=== PATIENT | female | born 1990 | race Caucasian/White ===

== ENCOUNTER → 2017-08-16 14:04 | Outpatient (CLI) | payer BC, OTHER, MEDICAID, SELFPAY ==
--- NOTE | 2017-08-16 | DI.ECHO.S_ITS ---
[facility] +---------+ : : [address] : : : : [place], [place] : : : : [id number] : : : : Phone: [phone]---------+ Echocardiogram Report + + :Name: VEDA GORDON Study Date: 08/16/2017 Height: 62 in : :[facility] Exam Location: [facility] [place] Weight: 145 lb : : Gender: Female BSA: 1.7 m2 : :: 1990 Age: 27 yrs BP: 120/80 mmHg: :Reason For Study: Arrhythmia, PVCs : :Ordering Physician: Jennifer : :Apollo Performed By: Marielle Page : + + Interpretation Summary 1) Normal left ventricular thickness, size, wall motion, and systolic function (EF 60-65%). 2) Normal right ventricular size and function. 3) The aortic valve is not well visualized; thus, bicuspid aortic valve can not be excluded. 4) No prior Echo available for comparison. Procedure: A two-dimensional transthoracic echocardiogram with color flow and Doppler was performed. The study quality was technically adequate. There is no prior echocardiogram noted for this patient. The heart rate ranged between 58-80 bpm during the study. The patient had frequent PVCs during the exam. Left Ventricle: The left ventricle is normal in size, wall thickness, and systolic function without any focal wall motion abnormalities. The ejection fraction is estimated to be 60-65%. Right Ventricle: The right ventricle is normal in size and function. Atria: The left atrial size is normal. Right atrial size is normal. There is no Doppler evidence for an interatrial shunt. Mitral Valve: The mitral valve is normal in structure and function. There is no mitral regurgitation noted. Aortic Valve: The aortic valve is not well visualized. The aortic valve opens well. There is no aortic valve stenosis. No aortic regurgitation is present. Tricuspid Valve: The tricuspid valve is normal in structure and function. There is a trace or physiologic amount of tricuspid regurgitation. Pulmonary artery pressures cannot be estimated because of the lack of a measurable TR jet velocity. Pulmonic Valve: The pulmonic valve is not well visualized. Great Vessels: The aortic root is normal size. The ascending aorta is normal in size. The aortic arch could not be visualized. The pulmonary artery is not well visualized, but is probably normal size. The IVC is of normal diameter and collapses greater than 50% with a sniff. This suggests a low right atrial pressure of 3 mm Hg. Pericardium/ Pleura There is no pericardial effusion. There is no pleural effusion. MMode/2D Measurements & Calculations LVIDd: 4.8 cm LVOT diam: 2.5 cm LVIDs: 4.0 cm Ao root diam: 3.4 cm FS: 16.7 % asc Aorta Diam: 2.9 cm EPSS: 1.4 cm IVSd: 0.68 cm LVPWd: 0.56 cm LV mcbride. diameter/BSA (cm/m^2): 2.9 LV sys. diameter/BSA (cm/m^2): 2.4 LA dimension: 2.2 cm RA long axis: 5.5 cm LA A2 area: 14.3 cm2 RA area: 18.7 cm2 LA A4 area: 16.8 cm2 RA vol: 54.5 ml LA length (vol): 5.3 cm RA : 32.7 ml/m2 LA vol: 38.1 ml IVC diam: 2.0 cm LA vol index: 22.8 ml/m2 RVD1 (basal): 4.0 cm Doppler Measurements & Calculations Ao V2 max: 93.9 cm/sec LVOT Max Keith: 52.3 cm/sec Ao V2 mean: 66.8 cm/sec LV V1 max P.1 mmHg Ao max P.5 mmHg LV V1 VTI: 11.6 cm Ao mean P.0 mmHg YUSUF(I,D): 2.9 cm2 Ao V2 VTI: 19.8 cm YUSUF(V,D): 2.7 cm2 sev ratio: 0.58 YUSUF indexed to BSA (cm^2/m^2): 1.7 MV E max keith: 83.0 cm/sec PA V2 max: 52.2 cm/sec MV A max keith: 38.1 cm/sec PA V2 mean: 37.5 cm/sec MV E/A: 2.2 PA mean P.61 mmHg Med Peak E' Keith: 8.6 cm/sec PA Accel Time: 0.09 sec E/E' med: 9.7 Lat Peak E' Keith: 12.6 cm/sec E/E' lat: 6.6 E/e' average: 8.1 MV P1/2t: 70.2 msec MV P1/2t max keith: 81.9 cm/sec MVA(P1/2t): 3.1 cm2 Reading Physician:05:36 PM
== END ==
PROVIDERS: Family Provider Family Medicine; PCP Family Medicine; Visit Provider Family Medicine
DX: I49.3 Ventricular premature depolarization (principal)
CPT/HCPCS: 93306

== ENCOUNTER 2021-08-20 10:03 | Emergency (ER) | payer BC, OTHER, MEDICAID, SELFPAY ==
[2021-08-20] VITALS (56 sets, daily range): BP systolic 80–121; BP diastolic 44–70; PULSE 55–96; RESP 14–32; TEMP 36.5–38.8; O2SAT 75–100; BMI 29.7
--- NOTE | 2021-08-20 10:59 | ED_ITS ---
HPI - URI/Sore Throat <Aretha Childs DO - Last Filed: 08/21/21 19:30> General Chief Complaint: Upper Respiratory Symptoms Stated Complaint: dehydrated Time Seen by Provider: 08/20/21 10:58 Source: patient and family (mother) Limitations: no limitations History of Present Illness HPI Narrative: This is a 31-year-old female history of muscular dystrophy not on any daily medications. Mom states she has had some low-grade temperatures, she has had a cough which has been productive but patient will not spit it out. She has not had any chest pain. She has not had any shortness of breath or difficulty with breathing. She has not been drinking as much for the past 2 days and only had 1 cup of apple juice yesterday typically she will have 2-3. She has not been complaining of any nausea or vomiting and denies any today. No dysuria, urgency or frequency. She has been urinating and has not been particularly dark or discolored. No diarrhea constipation. She has been stooling. She did have a fall unwitnessed but described as mechanical and has some lower back discomfort. Patient has not had any prior surgeries. No known drug allergies. No tobacco, alcohol or illicit. She lives with her family including her mother who is at bedside and augments history today. Related Data Allergies Allergy/AdvReac Type Severity Reaction Status Date / Time No Known Drug Allergies Allergy Verified 08/20/21 18:56 Review of Systems <Aretha Childs DO - Last Filed: 08/21/21 19:30> Review of Systems ROS Unobtainable: All systems reviewed & are unremarkable except as noted in HPI and below Exam <Aretha Childs DO - Last Filed: 08/21/21 19:30> Narrative Exam Narrative: GEN: well nourished, female, alert and oriented and at baseline, patient appears to be in no acute distress distress. Patient intermittently dips to 88% on RA and then to 92% on RA. HEENT: Atraumatic, pupils are equal round reactive to light, extraocular movements are intact, nares are clear, TMs are clear with no fluid, there is no conjunctival pallor. Throat is clear without any exudates, erythema, tonsillar enlargement or uvular deviation HEART: Regular rate and rhythm without murmur, clicks, rubs. Pulses are equal in upper and lower extremities LUNGS:Lungs clear to auscultation, no wheezes, rales, crackles, chest moves symmetrically, no tachypnea accessory muscle use ABD:bowel sounds normal, soft, non-tender, no guarding, rebound, rigidity, no masses noted, no hepatosplenomegaly :No CVA tenderness BACK: No cervical, thoracic or lumbar vertebral point tenderness. Patient has normal range of motion. Patient is able to roll around on the bed back to front without issue. Normal range of motion of upper and lower extremities. Sens ation intact upper and lower extremities. MSCL: Non-tender, no muscle atrophy NEURO:CN 2-12 intact, sensation normal Initial Vital Signs Initial Vital Signs: Vital Signs Temperature 99.7 F H 08/20/21 10:14 Pulse Rate 96 H 08/20/21 10:14 Respiratory Rate 16 08/20/21 10:14 Blood Pressure 121/68 08/20/21 10:14 Pulse Oximetry 88 L 08/20/21 10:14 Oxygen Delivery Method 08/20/21 10:14 <Corinne Rosa MD - Last Filed: 08/21/21 02:21> Initial Vital Signs Initial Vital Signs: Vital Signs Temperature 99.7 F H 08/20/21 10:14 Pulse Rate 96 H 08/20/21 10:14 Respiratory Rate 16 08/20/21 10:14 Blood Pressure 121/68 08/20/21 10:14 Pulse Oximetry 88 L 08/20/21 10:14 Oxygen Delivery Method 08/20/21 10:14 <Corinne Rosa MD - Last Filed: 08/21/21 02:21> Central Line Placement Right IJ: Time of procedure: 21:35 Time Out Performed: Yes Patient Placed on Monitor/Pulse Ox: Yes Prep: mask, gown and gloves Central Line Prep: Chlorhexidine scrub Ultrasound Used for Placement: Yes Central Line Lumen Inserted: triple Post Procedure: sutured in place, good blood return, all ports aspirated, flushed, capped and sterile dressing applied Post Procedure X-Ray: tip of catheter in good position and no pneumothorax seen Patient Tolerated Procedure: Well Intubation Time of Intubation: 21:35 Time out performed: Yes sedative: other (propofol) Mg Given: 100 paralytic: Succinylcholine Mg Given: 40 Assist Device Used: fiber optic device ET Tube Size: 7.5 ET Tube Uncuffed: No Tube Secured Depth (cm): 21 Tube Secured Location: teeth Tube Placement Confirmation: Visualized tube passing through cords, Equal breath sounds bilaterally, Confirmation by capnometry and Chest Xray Intubation Complications: none Additional Comments: copious secretions suctioned from ET tube Course <Aretha Childs, DO - Last Filed: 08/21/21 19:30> Orders Ordered: Discontinued Medications Acetaminophen (Acetaminophen Susp 650 Mg/20.3 Ml Udc) 650 mg PO NOW ONE Stop: 08/20/21 16:34 Last Admin: 08/20/21 16:44 Dose: 650 mg Documented By: BS Dexamethasone (Dexamethasone 10 Mg/Ml Vial) 10 mg IV NOW ONE Stop: 08/20/21 17:54 Last Admin: 08/20/21 18:59 Dose: Not Given Documented By: ANTHONY Dexamethasone (Dexamethasone 10 Mg/Ml Vial) 6 mg IV NOW ONE Stop: 08/20/21 18:13 Last Admin: 08/20/21 18:14 Dose: 6 mg Documented By: ANTHONY Fentanyl (Fentanyl 100 Mcg/2 Ml Inj) 100 mcg IV Q1H PRN PRN Reason: sedation with intubation PRN Last Admin: 08/20/21 23:16 Dose: 50 mcg Documented By: Admin: 08/20/21 21:35 Dose: 100 mcg Documented By: Admin: 08/20/21 21:25 Dose: 100 mcg Documented By: ANTHONY Fentanyl (Fentanyl 100 Mcg/2 Ml Inj) 100 mcg IV NOW ONE Stop: 08/20/21 22:28 Last Admin: 08/20/21 22:31 Dose: 100 mcg Documented By: ANTHONY Fentanyl (Fentanyl 100 Mcg/2 Ml Inj) 50 mcg IV NOW ONE Stop: 08/20/21 23:16 Last Admin: 08/20/21 23:17 Dose: Not Given Documented By: BS Remdesivir 200 mg/ Sodium (Chloride) 250 mls @ 250 mls/hr IV NOW ONE Stop: 08/20/21 18:52 Last Admin: 08/20/21 20:29 Dose: Not Given Documented By: ANTHONY Propofol (Propofol) 1,000 mg in 100 mls @ 2.286 mls/hr IV TITRATE PRISCILLA Last Infusion: 08/20/21 23:45 Dose: 0 mcg/kg/min, 0 mls/hr Documented By: Infusion: 08/20/21 23:45 Dose: 30 mcg/kg/min, 13.717 mls/hr Documented By: Admin: 08/20/21 23:22 Dose: 25 mcg/kg/min, 11.431 mls/hr Documented By: Infusion: 08/20/21 23:22 Dose: 30 mcg/kg/min, 13.717 mls/hr Documented By: Infusion: 08/20/21 22:30 Dose: 25 mcg/kg/min, 11.431 mls/hr Documented By: Infusion: 08/20/21 22:15 Dose: 20 mcg/kg/min, 9.144 mls/hr Documented By: Admin: 08/20/21 21:19 Dose: 5 mcg/kg/min, 2.286 mls/hr Documented By: ANTHONY NOREPINEPHRINE BITARTRATE/D5W (Levophed) 4 mg in 250 mls @ 7.5 mls/hr IV TITRATE PRISCILLA; Protocol Last Titration: 08/20/21 23:45 Dose: 4 mcg/min, 15 mls/hr Documented By: Titration: 08/20/21 22:01 Dose: 4 mcg/min, 15 mls/hr Documented By: Admin: 08/20/21 21:45 Dose: 2 mcg/min, 7.5 mls/hr Documented By: ANTHONY Fentanyl 1,000 mcg/ Dextrose 250 mls @ 13.336 mls/hr IV TITRATE PRISCILLA; Protocol Last Admin: 08/21/21 00:15 Dose: Not Given Documented By: BS Sodium Chloride (Normal Saline 0.9%) 1,000 mls @ 1,000 mls/hr IV BOLUS ONE Stop: 08/20/21 22:09 Last Infusion: 08/20/21 22:30 Dose: 0 mls/hr Documented By: Admin: 08/20/21 21:20 Dose: 1,000 mls/hr Documented By: ANTHONY Propofol (Propofol 200 Mg/20 Ml Vial) 75 mg 1 mg/kg (75 mg) IV NOW ONE Stop: 08/20/21 20:34 Last Admin: 08/20/21 22:20 Dose: Not Given Documented By: ANTHONY Propofol (Propofol 200 Mg/20 Ml Vial) 100 mg IV NOW ONE Stop: 08/20/21 21:12 Last Admin: 08/20/21 21:11 Dose: 100 mg Documented By: BS Propofol (Propofol 200 Mg/20 Ml Vial) 100 mg IV NOW ONE Stop: 08/20/21 21:20 Last Admin: 08/20/21 21:19 Dose: 100 mg Documented By: BS Succinylcholine Chloride (Succinylcholine 200 Mg/10 Ml Vial) 40 mg IV NOW ONE Stop: 08/20/21 21:13 Last Admin: 08/20/21 21:12 Dose: 40 mg Documented By: BS Reevaluation(s) Reevaluation #1: Patient's O2 sat is noted to be sometimes as low as 83 does to have a appropriate + consistently and she response to nasal cannula oxygen. Mom states she has never been she has low to the past. Multiple attempts at IV placement without success as well as lab drop. After discussion would like to keep patient for admission, ultrasound-guided IV, dexamethasone and remdesivir. Reevaluation #2: Recheck patient keeps dropping intermittently and has increasing O2 requirements. Patient bumped from 4L n/c and then to high flow after ABG with pao2 of 40. Patient does use cpap at home at night. Reevaluation #3: Patient shrugs shoulders when asked about intubation status earlier and now. Mother states she has to confer with but after discussion gives permission if patient rapidly decompensating. Discussed patient need for t ransfer for multiple subspecialty care with her medical issues. Consultations Consultation #1: Dr. Quintanilla accepts for waiting for labs. He was re-contacted is patient's O2 requirements are increasing and we both agree that patient would benefit from transfer but he is happy to consult with emergency department until transfer can be arranged Consultation #2: Dr. Donn Walton at [facility] [place] is happy to accept patient. Would agree with plan for serial ABGs and possibly switch to BiPAP sooner as patient may have some CO2 retention with plan to monitor closely and intubation if continuing to retain CO2, ect. Vital Signs Vital signs: Vital Signs - 8 hr 08/20/21 19:23 08/20/21 19:23 08/20/21 20:05 Temperature Pulse Rate Respiratory Rate 24 24 Blood Pressure 96/55 L Pulse Oximetry 88 L 88 L Oxygen Delivery Method Fraction of Inspired Oxygen 90 08/20/21 18:30 08/20/21 18:30 08/20/21 18:53 Temperature Pulse Rate 90 Respiratory Rate Blood Pressure 100/59 L 101/66 Pulse Oximetry 89 L Oxygen Delivery Method Fraction of Inspired Oxygen 08/20/21 18:53 08/20/21 19:00 08/20/21 19:00 Temperature Pulse Rate 89 86 Respiratory Rate Blood Pressure 111/54 L Pulse Oximetry 89 L 90 L Oxygen Delivery Method Fraction of Inspired Oxygen 08/20/21 19:30 08/20/21 19:30 08/20/21 19:55 Temperature Pulse Rate 90 91 H Respiratory Rate Blood Pressure 99/55 L Pulse Oximetry 93 93 Oxygen Delivery Method Fraction of Inspired Oxygen 08/20/21 19:55 08/20/21 20:00 08/20/21 20:00 Temperature Pulse Rate 91 H Respiratory Rate Blood Pressure 96/55 L 94/56 L Pulse Oximetry 93 Oxygen Delivery Method BiPAP Fraction of Inspired Oxygen 08/20/21 21:48 08/20/21 21:49 08/20/21 21:49 Temperature Pulse Rate 59 L 59 L Respiratory Rate Blood Pressure 83/46 L Pulse Oximetry 97 97 Oxygen Delivery Method Fraction of Inspired Oxygen 08/20/21 21:50 08/20/21 21:50 08/20/21 21:52 Temperature Pulse Rate 57 L Respiratory Rate Blood Pressure 84/47 L 86/50 L Pulse Oximetry 97 Oxygen Delivery Method Fraction of Inspired Oxygen 08/20/21 21:52 08/20/21 21:54 08/20/21 21:54 Temperature Pulse Rate 57 L 57 L Respiratory Rate Blood Pressure 90/53 L Pulse Oximetry 98 98 Oxygen Delivery Method Fraction of Inspired Oxygen 08/20/21 21:56 08/20/21 21:56 08/20/21 21:58 Temperature 97.7 F Pulse Rate 57 L Respiratory Rate Blood Pressure 89/50 L 89/52 L Pulse Oximetry 99 Oxygen Delivery Method Fraction of Inspired Oxygen 08/20/21 21:58 08/20/21 22:00 08/20/21 22:00 Temperature 98.8 F 99.0 F Pulse Rate 58 L 57 L Respiratory Rate Blood Pressure 89/52 L Pulse Oximetry 99 99 Oxygen Delivery Method Fraction of Inspired Oxygen 08/20/21 22:02 08/20/21 22:02 08/20/21 22:04 Temperature 99.1 F Pulse Rate 57 L Respiratory Rate Blood Pressure 93/54 L 95/58 L Pulse Oximetry 99 Oxygen Delivery Method Fraction of Inspired Oxygen 08/20/21 22:04 08/20/21 22:06 08/20/21 22:06 Temperature 99.3 F 99.3 F Pulse Rate 55 L 55 L Respiratory Rate Blood Pressure 96/59 L Pulse Oximetry 99 99 Oxygen Delivery Method Fraction of Inspired Oxygen 08/20/21 22:08 08/20/21 22:08 08/20/21 22:14 Temperature 99.5 F Pulse Rate 56 L Respiratory Rate Blood Pressure 95/61 94/62 Pulse Oximetry 100 Oxygen Delivery Method Fraction of Inspired Oxygen 08/20/21 22:14 08/20/21 22:16 08/20/21 22:16 Temperature 99.3 F 99.9 F H Pulse Rate 60 57 L Respiratory Rate Blood Pressure 104/60 Pulse Oximetry 100 100 Oxygen Delivery Method Fraction of Inspired Oxygen 08/20/21 22:18 08/20/21 22:18 08/20/21 22:20 Temperature 99.9 F H Pulse Rate 56 L Respiratory Rate Blood Pressure 109/59 L 100/60 Pulse Oximetry 100 Oxygen Delivery Method Fraction of Inspired Oxygen 08/20/21 22:20 08/20/21 22:22 08/20/21 22:22 Temperature 99.9 F H 99.9 F H Pulse Rate 56 L 57 L Respiratory Rate Blood Pressure 101/62 Pulse Oximetry 100 100 Oxygen Delivery Method Fraction of Inspired Oxygen 08/20/21 22:24 08/20/21 22:24 08/20/21 22:26 Temperature 99.9 F H Pulse Rate 55 L Respiratory Rate 14 Blood Pressure 102/57 L 103/55 L Pulse Oximetry 100 Oxygen Delivery Method Fraction of Inspired Oxygen 08/20/21 22:26 08/20/21 22:28 08/20/21 22:28 Temperature 99.9 F H 99.9 F H Pulse Rate 61 66 Respiratory Rate 16 16 Blood Pressure 97/54 L Pulse Oximetry 100 99 Oxygen Delivery Method Fraction of Inspired Oxygen 08/20/21 22:30 08/20/21 22:30 08/20/21 22:32 Temperature 99.9 F H 99.9 F H Pulse Rate 61 58 L Respiratory Rate 14 20 Blood Pressure 95/54 L Pulse Oximetry 100 100 Oxygen Delivery Method Fraction of Inspired Oxygen 08/20/21 22:32 08/20/21 22:34 08/20/21 22:34 Temperature 99.9 F H Pulse Rate 60 Respiratory Rate 14 Blood Pressure 94/50 L 96/51 L Pulse Oximetry 99 Oxygen Delivery Method Fraction of Inspired Oxygen 08/20/21 22:36 08/20/21 22:36 08/20/21 22:38 Temperature 99.9 F H Pulse Rate 58 L Respiratory Rate 15 Blood Pressure 99/58 L 100/56 L Pulse Oximetry 100 Oxygen Delivery Method Fraction of Inspired Oxygen 08/20/21 22:38 08/20/21 23:00 Temperature 99.9 F H 99.9 F H Pulse Rate 59 L 67 Respiratory Rate 14 Blood Pressure Pulse Oximetry 100 100 Oxygen Delivery Method Fraction of Inspired Oxygen <Corinne Rosa MD - Last Filed: 08/21/21 02:21> Orders Ordered: Discontinued Medications Acetaminophen (Acetaminophen Susp 650 Mg/20.3 Ml Udc) 650 mg PO NOW ONE Stop: 08/20/21 16:34 Last Admin: 08/20/21 16:44 Dose: 650 mg Documented By: ANTHONY Dexamethasone (Dexamethasone 10 Mg/Ml Vial) 10 mg IV NOW ONE Stop: 08/20/21 17:54 Last Admin: 08/20/21 18:59 Dose: Not Given Documented By: ANTHONY Dexamethasone (Dexamethasone 10 Mg/Ml Vial) 6 mg IV NOW ONE Stop: 08/20/21 18:13 Last Admin: 08/20/21 18:14 Dose: 6 mg Documented By: ANTHONY Fentanyl (Fentanyl 100 Mcg/2 Ml Inj) 100 mcg IV Q1H PRN PRN Reason: sedation with intubation PRN Last Admin: 08/20/21 23:16 Dose: 50 mcg Documented By: Admin: 08/20/21 21:35 Dose: 100 mcg Documented By: Admin: 08/20/21 21:25 Dose: 100 mcg Documented By: ANTHONY Fentanyl (Fentanyl 100 Mcg/2 Ml Inj) 100 mcg IV NOW ONE Stop: 08/20/21 22:28 Last Admin: 08/20/21 22:31 Dose: 100 mcg Documented By: ANTHONY Fentanyl (Fentanyl 100 Mcg/2 Ml Inj) 50 mcg IV NOW ONE Stop: 08/20/21 23:16 Last Admin: 08/20/21 23:17 Dose: Not Given Documented By: ANTHONY Remdesivir 200 mg/ Sodium (Chloride) 250 mls @ 250 mls/hr IV NOW ONE Stop: 08/20/21 18:52 Last Admin: 08/20/21 20:29 Dose: Not Given Documented By: BS Propofol (Propofol) 1,000 mg in 100 mls @ 2.286 mls/hr IV TITRATE PRISCILLA Last Infusion: 08/20/21 23:45 Dose: 0 mcg/kg/min, 0 mls/hr Documented By: Infusion: 08/20/21 23:45 Dose: 30 mcg/kg/min, 13.717 mls/hr Documented By: Admin: 08/20/21 23:22 Dose: 25 mcg/kg/min, 11.431 mls/hr Documented By: Infusion: 08/20/21 23:22 Dose: 30 mcg/kg/min, 13.717 mls/hr Documented By: Infusion: 08/20/21 22:30 Dose: 25 mcg/kg/min, 11.431 mls/hr Documented By: Infusion: 08/20/21 22:15 Dose: 20 mcg/kg/min, 9.144 mls/hr Documented By: Admin: 08/20/21 21:19 Dose: 5 mcg/kg/min, 2.286 mls/hr Documented By: BS NOREPINEPHRINE BITARTRATE/D5W (Levophed) 4 mg in 250 mls @ 7.5 mls/hr IV TITRATE PRISCILLA; Protocol Last Titration: 08/20/21 23:45 Dose: 4 mcg/min, 15 mls/hr Documented By: Titration: 08/20/21 22:01 Dose: 4 mcg/min, 15 mls/hr Documented By: Admin: 08/20/21 21:45 Dose: 2 mcg/min, 7.5 mls/hr Documented By: BS Fentanyl 1,000 mcg/ Dextrose 250 mls @ 13.336 mls/hr IV TITRATE PRISCILLA; Protocol Last Admin: 08/21/21 00:15 Dose: Not Given Documented By: BS Sodium Chloride (Normal Saline 0.9%) 1,000 mls @ 1,000 mls/hr IV BOLUS ONE Stop: 08/20/21 22:09 Last Infusion: 08/20/21 22:30 Dose: 0 mls/hr Documented By: Admin: 08/20/21 21:20 Dose: 1,000 mls/hr Documented By: ANTHONY Propofol (Propofol 200 Mg/20 Ml Vial) 75 mg 1 mg/kg (75 mg) IV NOW ONE Stop: 08/20/21 20:34 Last Admin: 08/20/21 22:20 Dose: Not Given Documented By: ANTHONY Propofol (Propofol 200 Mg/20 Ml Vial) 100 mg IV NOW ONE Stop: 08/20/21 21:12 Last Admin: 08/20/21 21:11 Dose: 100 mg Documented By: ANTHONY Propofol (Propofol 200 Mg/20 Ml Vial) 100 mg IV NOW ONE Stop: 08/20/21 21:20 Last Admin: 08/20/21 21:19 Dose: 100 mg Documented By: ANTHONY Succinylcholine Chloride (Succinylcholine 200 Mg/10 Ml Vial) 40 mg IV NOW ONE Stop: 08/20/21 21:13 Last Admin: 08/20/21 21:12 Dose: 40 mg Documented By: ANTHONY Vital Signs Vital signs: Vital Signs - 8 hr 08/20/21 19:23 08/20/21 19:23 08/20/21 20:05 Temperature Pulse Rate Respiratory Rate 24 24 Blood Pressure 96/55 L Pulse Oximetry 88 L 88 L Oxygen Delivery Method Fraction of Inspired Oxygen 90 08/20/21 18:30 08/20/21 18:30 08/20/21 18:53 Temperature Pulse Rate 90 Respiratory Rate Blood Pressure 100/59 L 101/66 Pulse Oximetry 89 L Oxygen Delivery Method Fraction of Inspired Oxygen 08/20/21 18:53 08/20/21 19:00 08/20/21 19:00 Temperature Pulse Rate 89 86 Respiratory Rate Blood Pressure 111/54 L Pulse Oximetry 89 L 90 L Oxygen Delivery Method Fraction of Inspired Oxygen 08/20/21 19:30 08/20/21 19:30 08/20/21 19:55 Temperature Pulse Rate 90 91 H Respiratory Rate Blood Pressure 99/55 L Pulse Oximetry 93 93 Oxygen Delivery Method Fraction of Inspired Oxygen 08/20/21 19:55 08/20/21 20:00 08/20/21 20:00 Temperature Pulse Rate 91 H Respiratory Rate Blood Pressure 96/55 L 94/56 L Pulse Oximetry 93 Oxygen Delivery Method BiPAP Fraction of Inspired Oxygen 08/20/21 21:48 08/20/21 21:49 08/20/21 21:49 Temperature Pulse Rate 59 L 59 L Respiratory Rate Blood Pressure 83/46 L Pulse Oximetry 97 97 Oxygen Delivery Method Fraction of Inspired Oxygen 08/20/21 21:50 08/20/21 21:50 08/20/21 21:52 Temperature Pulse Rate 57 L Respiratory Rate Blood Pressure 84/47 L 86/50 L Pulse Oximetry 97 Oxygen Delivery Method Fraction of Inspired Oxygen 08/20/21 21:52 08/20/21 21:54 08/20/21 21:54 Temperature Pulse Rate 57 L 57 L Respiratory Rate Blood Pressure 90/53 L Pulse Oximetry 98 98 Oxygen Delivery Method Fraction of Inspired Oxygen 08/20/21 21:56 08/20/21 21:56 08/20/21 21:58 Temperature 97.7 F Pulse Rate 57 L Respiratory Rate Blood Pressure 89/50 L 89/52 L Pulse Oximetry 99 Oxygen Delivery Method Fraction of Inspired Oxygen 08/20/21 21:58 08/20/21 22:00 08/20/21 22:00 Temperature 98.8 F 99.0 F Pulse Rate 58 L 57 L Respiratory Rate Blood Pressure 89/52 L Pulse Oximetry 99 99 Oxygen Delivery Method Fraction of Inspired Oxygen 08/20/21 22:02 08/20/21 22:02 08/20/21 22:04 Temperature 99.1 F Pulse Rate 57 L Respiratory Rate Blood Pressure 93/54 L 95/58 L Pulse Oximetry 99 Oxygen Delivery Method Fraction of Inspired Oxygen 08/20/21 22:04 08/20/21 22:06 08/20/21 22:06 Temperature 99.3 F 99.3 F Pulse Rate 55 L 55 L Respiratory Rate Blood Pressure 96/59 L Pulse Oximetry 99 99 Oxygen Delivery Method Fraction of Inspired Oxygen 08/20/21 22:08 08/20/21 22:08 08/20/21 22:14 Temperature 99.5 F Pulse Rate 56 L Respiratory Rate Blood Pressure 95/61 94/62 Pulse Oximetry 100 Oxygen Delivery Method Fraction of Inspired Oxygen 08/20/21 22:14 08/20/21 22:16 08/20/21 22:16 Temperature 99.3 F 99.9 F H Pulse Rate 60 57 L Respiratory Rate Blood Pressure 104/60 Pulse Oximetry 100 100 Oxygen Delivery Method Fraction of Inspired Oxygen 08/20/21 22:18 08/20/21 22:18 08/20/21 22:20 Temperature 99.9 F H Pulse Rate 56 L Respiratory Rate Blood Pressure 109/59 L 100/60 Pulse Oximetry 100 Oxygen Delivery Method Fraction of Inspired Oxygen 08/20/21 22:20 08/20/21 22:22 08/20/21 22:22 Temperature 99.9 F H 99.9 F H Pulse Rate 56 L 57 L Respiratory Rate Blood Pressure 101/62 Pulse Oximetry 100 100 Oxygen Delivery Method Fraction of Inspired Oxygen 08/20/21 22:24 08/20/21 22:24 08/20/21 22:26 Temperature 99.9 F H Pulse Rate 55 L Respiratory Rate 14 Blood Pressure 102/57 L 103/55 L Pulse Oximetry 100 Oxygen Delivery Method Fraction of Inspired Oxygen 08/20/21 22:26 08/20/21 22:28 08/20/21 22:28 Temperature 99.9 F H 99.9 F H Pulse Rate 61 66 Respiratory Rate 16 16 Blood Pressure 97/54 L Pulse Oximetry 100 99 Oxygen Delivery Method Fraction of Inspired Oxygen 08/20/21 22:30 08/20/21 22:30 08/20/21 22:32 Temperature 99.9 F H 99.9 F H Pulse Rate 61 58 L Respiratory Rate 14 20 Blood Pressure 95/54 L Pulse Oximetry 100 100 Oxygen Delivery Method Fraction of Inspired Oxygen 08/20/21 22:32 08/20/21 22:34 08/20/21 22:34 Temperature 99.9 F H Pulse Rate 60 Respiratory Rate 14 Blood Pressure 94/50 L 96/51 L Pulse Oximetry 99 Oxygen Delivery Method Fraction of Inspired Oxygen 08/20/21 22:36 08/20/21 22:36 08/20/21 22:38 Temperature 99.9 F H Pulse Rate 58 L Respiratory Rate 15 Blood Pressure 99/58 L 100/56 L Pulse Oximetry 100 Oxygen Delivery Method Fraction of Inspired Oxygen 08/20/21 22:38 08/20/21 23:00 Temperature 99.9 F H 99.9 F H Pulse Rate 59 L 67 Respiratory Rate 14 Blood Pressure Pulse Oximetry 100 100 Oxygen Delivery Method Fraction of Inspired Oxygen MDM - URI/Sore Throat <Aretha Childs, DO - Last Filed: 08/21/21 19:30> Lab Data Result diagrams: 08/20/21 17:40 08/20/21 17:40 Labs: Lab Results 08/20/21 08/20/21 08/20/21 Range/Units 10:11 17:10 17:40 WBC (4.5-11.0) X10^3/uL RBC (4.0-5.2) X10^6/uL Hgb (12.0-16.0) g/dL Hct (36-46) % MCV (80-100) fL MCH (26-34) PG MCHC (30-36) % RDW (11.6-14.8) % Plt Count (150-400) X10^3/uL Neut % (Auto) (50-75) % Lymph % (Auto) (25-40) % [place] % (Auto) (3-14) % Eos % (Auto) (2-4) % Baso % (Auto) (0-2) % Neut # (Auto) (9243-4787) /uL Lymph # (Auto) (4148-8744) /uL [place] # (Auto) (0-900) /uL Eos # (Auto) (0-450) /uL Baso # (Auto) (0-100) /uL D-Dimer 591 H (<230) ng/mL ABG pH 7.35 (7.35-7.45) ABG pCO2 50.5 H (35-45) mmHg ABG pO2 44 L* (80-100) mmHg ABG HCO3 28 H (22-26) mmol/L ABG Total CO2 29 (21-31) mmol/L ABG O2 Saturation 77 L* (95-100) % ABG Base Excess 2.0 (-2-2) mmol/L FiO2 32 Sodium (137-145) mmol/L Potassium (3.4-5.1) mmol/L Chloride (98-107) mmol/L Carbon Dioxide (22-32) mmol/L BUN (7-17) mg/dL Creatinine (0.52-1.04) mg/dL Estimated GFR (>60) mL/min BUN/Creatinine Ratio (6-22) Glucose (70-100) mg/dL Lactate (0.7-2.1) mmol/L Calcium (8.4-10.2) mg/dL Ferritin (6-137) ng/mL Total Bilirubin (0.2-1.3) mg/dL AST (14-36) IU/L ALT (<35) IU/L Alkaline Phosphatase (38-126) U/L Lactate Dehydrogenase (313-618) U/L Total Creatine Kinase (30-135) U/L CK-MB (CK-2) CK-MB (CK-2) Rel Index Troponin I (0.01-0.034) ng/mL C-Reactive Protein (<1.0) mg/dL NT-Pro-B Natriuret Pep (<125) pg/mL Total Protein (6.3-8.2) g/dL Albumin (3.5-5.0) g/dL Globulin (1.7-4.1) g/dL Albumin/Globulin Ratio (1.0-2.8) Procalcitonin (<0.5) ng/mL SARS-CoV-2 (PCR) Positive H (Negative) Influenza A (RT-PCR) Flu a negative (NEGATIVE) Influenza B (RT-PCR) Flu b negative (NEGATIVE) RSV (PCR) Negative (Negative) 08/20/21 08/20/21 08/20/21 Range/Units 17:40 17:40 17:40 WBC 3.9 L (4.5-11.0) X10^3/uL RBC 4.12 (4.0-5.2) X10^6/uL Hgb 12.6 (12.0-16.0) g/dL Hct 38.6 (36-46) % MCV 93.6 (80-100) fL MCH 30.7 (26-34) PG MCHC 32.8 (30-36) % RDW 14.5 (11.6-14.8) % Plt Count 147 L (150-400) X10^3/uL Neut % (Auto) 83.8 H (50-75) % Lymph % (Auto) 7.3 L (25-40) % [place] % (Auto) 8.8 (3-14) % Eos % (Auto) 0.0 L (2-4) % Baso % (Auto) 0.1 (0-2) % Neut # (Auto) 3300 (7920-9837) /uL Lymph # (Auto) 300 L (2362-7322) /uL [place] # (Auto) 300 (0-900) /uL Eos # (Auto) 0 (0-450) /uL Baso # (Auto) 0 (0-100) /uL D-Dimer (<230) ng/mL ABG pH (7.35-7.45) ABG pCO2 (35-45) mmHg ABG pO2 (80-100) mmHg ABG HCO3 (22-26) mmol/L ABG Total CO2 (21-31) mmol/L ABG O2 Saturation (95-100) % ABG Base Excess (-2-2) mmol/L FiO2 Sodium 138 (137-145) mmol/L Potassium 3.6 (3.4-5.1) mmol/L Chloride 103 (98-107) mmol/L Carbon Dioxide 27 (22-32) mmol/L BUN 12 (7-17) mg/dL Creatinine 0.32 L (0.52-1.04) mg/dL Estimated GFR > 60 (>60) mL/min BUN/Creatinine Ratio 37.5 H (6-22) Glucose 93 (70-100) mg/dL Lactate (0.7-2.1) mmol/L Calcium 7.8 L (8.4-10.2) mg/dL Ferritin (6-137) ng/mL Total Bilirubin 0.6 (0.2-1.3) mg/dL AST 42 H (14-36) IU/L ALT 27 (<35) IU/L Alkaline Phosphatase 47 (38-126) U/L Lactate Dehydrogenase (313-618) U/L Total Creatine Kinase 89 (30-135) U/L CK-MB (CK-2) TNP CK-MB (CK-2) Rel Index TNP Troponin I < 0.012 (0.01-0.034) ng/mL C-Reactive Protein (<1.0) mg/dL NT-Pro-B Natriuret Pep 536 H (<125) pg/mL Total Protein 7.0 (6.3-8.2) g/dL Albumin 3.7 (3.5-5.0) g/dL Globulin 3.3 (1.7-4.1) g/dL Albumin/Globulin Ratio 1.1 (1.0-2.8) Procalcitonin 0.11 (<0.5) ng/mL SARS-CoV-2 (PCR) (Negative) Influenza A (RT-PCR) (NEGATIVE) Influenza B (RT-PCR) (NEGATIVE) RSV (PCR) (Negative) 08/20/21 08/20/2122 Range/Units 17:40 17:40 22:20 WBC (4.5-11.0) X10^3/uL RBC (4.0-5.2) X10^6/uL Hgb (12.0-16.0) g/dL Hct (36-46) % MCV (80-100) fL MCH (26-34) PG MCHC (30-36) % RDW (11.6-14.8) % Plt Count (150-400) X10^3/uL Neut % (Auto) (50-75) % Lymph % (Auto) (25-40) % Estill % (Auto) (3-14) % Eos % (Auto) (2-4) % Baso % (Auto) (0-2) % Neut # (Auto) (9358-6528) /uL Lymph # (Auto) (2232-7644) /uL Estill # (Auto) (0-900) /uL Eos # (Auto) (0-450) /uL Baso # (Auto) (0-100) /uL D-Dimer (<230) ng/mL ABG pH 7.34 L (7.35-7.45) ABG pCO2 43.1 (35-45) mmHg ABG pO2 81 (80-100) mmHg ABG HCO3 23 (22-26) mmol/L ABG Total CO2 25 (21-31) mmol/L ABG O2 Saturation 95 (95-100) % ABG Base Excess -2.0 (-2-2) mmol/L FiO2 100 Sodium (137-145) mmol/L Potassium (3.4-5.1) mmol/L Chloride (98-107) mmol/L Carbon Dioxide (22-32) mmol/L BUN (7-17) mg/dL Creatinine (0.52-1.04) mg/dL Estimated GFR (>60) mL/min BUN/Creatinine Ratio (6-22) Glucose (70-100) mg/dL Lactate 0.8 (0.7-2.1) mmol/L Calcium (8.4-10.2) mg/dL Ferritin 219 H (6-137) ng/mL Total Bilirubin (0.2-1.3) mg/dL AST (14-36) IU/L ALT (<35) IU/L Alkaline Phosphatase (38-126) U/L Lactate Dehydrogenase 516 (313-618) U/L Total Creatine Kinase (30-135) U/L CK-MB (CK-2) CK-MB (CK-2) Rel Index Troponin I (0.01-0.034) ng/mL C-Reactive Protein 1.5 H (<1.0) mg/dL NT-Pro-B Natriuret Pep (<125) pg/mL Total Protein (6.3-8.2) g/dL Albumin (3.5-5.0) g/dL Globulin (1.7-4.1) g/dL Albumin/Globulin Ratio (1.0-2.8) Procalcitonin (<0.5) ng/mL SARS-CoV-2 (PCR) (Negative) Influenza A (RT-PCR) (NEGATIVE) Influenza B (RT-PCR) (NEGATIVE) RSV (PCR) (Negative) MDM Narrative Medical decision making narrative: This is a 31-year-old female with history muscular dystrophy. Patient occasionally dips to 88%, COVID, influenza and RSV were obtained, chest x-ray lab work. In the department patient occasionally drop her O2 sat sometimes with good pleth other times not although her mom states she has not been told this specifically in the past. Mother states that she herself who has muscular dystrophy does tend to run a little bit lower. Patient does not appear to be in any distress and does not express any, she has had increasing O2 requirements in the department. Multiple nurses and myself attempted IV axis and ultrasound- guided PICC line was placed labs are obtained shows an elevated dimer but no other major her lab abnormalities other than slightly elevated BNP. Patient developed fever treated with Tylenol. With her O2 requirements increasing she was placed on high-flow. Just before had ABG which does show some mild CO2 retention but low O2. Patient had intermittent dips in her O2 but has been more appropriate. With her history of muscular dystrophy discussed with family about BiPAP or intubation. Mother has been unclear if they are okay with intubation and patient shrugs her shoulders when asked directly. Patient does use CPAP home and they are open to BiPAP here in the department. Plan for serial ABGs and escalation of airway management as needed. Seeking placement, spoke with induction machine setter at [facility] if beds available she is wait listed, all facilities in the region or being contacted. Discussed at length and frankly with her mother that she is recommended to have dexamethasone, remdesivir an oral antivi ral. She refuses the remdesivir but is agreeable to the other choices. She eventually agreed to intubation if needed emergently but still states she needs to talk to the before this can be completely finalized. <Corinne Rosa MD - Last Filed: 08/21/21 02:21> Lab Data Labs: Lab Results 08/20/21 08/20/21 08/20/21 Range/Units 10:11 17:10 17:40 WBC (4.5-11.0) X10^3/uL RBC (4.0-5.2) X10^6/uL Hgb (12.0-16.0) g/dL Hct (36-46) % MCV (80-100) fL MCH (26-34) PG MCHC (30-36) % RDW (11.6-14.8) % Plt Count (150-400) X10^3/uL Neut % (Auto) (50-75) % Lymph % (Auto) (25-40) % Estill % (Auto) (3-14) % Eos % (Auto) (2-4) % Baso % (Auto) (0-2) % Neut # (Auto) (4885-2797) /uL Lymph # (Auto) (0886-4903) /uL Estill # (Auto) (0-900) /uL Eos # (Auto) (0-450) /uL Baso # (Auto) (0-100) /uL D-Dimer 591 H (<230) ng/mL ABG pH 7.35 (7.35-7.45) ABG pCO2 50.5 H (35-45) mmHg ABG pO2 44 L* (80-100) mmHg ABG HCO3 28 H (22-26) mmol/L ABG Total CO2 29 (21-31) mmol/L ABG O2 Saturation 77 L* (95-100) % ABG Base Excess 2.0 (-2-2) mmol/L FiO2 32 Sodium (137-145) mmol/L Potassium (3.4-5.1) mmol/L Chloride (98-107) mmol/L Carbon Dioxide (22-32) mmol/L BUN (7-17) mg/dL Creatinine (0.52-1.04) mg/dL Estimated GFR (>60) mL/min BUN/Creatinine Ratio (6-22) Glucose (70-100) mg/dL Lactate (0.7-2.1) mmol/L Calcium (8.4-10.2) mg/dL Ferritin (6-137) ng/mL Total Bilirubin (0.2-1.3) mg/dL AST (14-36) IU/L ALT (<35) IU/L Alkaline Phosphatase (38-126) U/L Lactate Dehydrogenase (313-618) U/L Total Creatine Kinase (30-135) U/L CK-MB (CK-2) CK-MB (CK-2) Rel Index Troponin I (0.01-0.034) ng/mL C-Reactive Protein (<1.0) mg/dL NT-Pro-B Natriuret Pep (<125) pg/mL Total Protein (6.3-8.2) g/dL Albumin (3.5-5.0) g/dL Globulin (1.7-4.1) g/dL Albumin/Globulin Ratio (1.0-2.8) Procalcitonin (<0.5) ng/mL SARS-CoV-2 (PCR) Positive H (Negative) Influenza A (RT-PCR) Flu a negative (NEGATIVE) Influenza B (RT-PCR) Flu b negative (NEGATIVE) RSV (PCR) Negative (Negative) 08/20/21 08/20/21 08/20/21 Range/Units 17:40 17:40 17:40 WBC 3.9 L (4.5-11.0) X10^3/uL RBC 4.12 (4.0-5.2) X10^6/uL Hgb 12.6 (12.0-16.0) g/dL Hct 38.6 (36-46) % MCV 93.6 (80-100) fL MCH 30.7 (26-34) PG MCHC 32.8 (30-36) % RDW 14.5 (11.6-14.8) % Plt Count 147 L (150-400) X10^3/uL Neut % (Auto) 83.8 H (50-75) % Lymph % (Auto) 7.3 L (25-40) % Estill % (Auto) 8.8 (3-14) % Eos % (Auto) 0.0 L (2-4) % Baso % (Auto) 0.1 (0-2) % Neut # (Auto) 3300 (0393-8248) /uL Lymph # (Auto) 300 L (3109-9204) /uL Estill # (Auto) 300 (0-900) /uL Eos # (Auto) 0 (0-450) /uL Baso # (Auto) 0 (0-100) /uL D-Dimer (<230) ng/mL ABG pH (7.35-7.45) ABG pCO2 (35-45) mmHg ABG pO2 (80-100) mmHg ABG HCO3 (22-26) mmol/L ABG Total CO2 (21-31) mmol/L ABG O2 Saturation (95-100) % ABG Base Excess (-2-2) mmol/L FiO2 Sodium 138 (137-145) mmol/L Potassium 3.6 (3.4-5.1) mmol/L Chloride 103 (98-107) mmol/L Carbon Dioxide 27 (22-32) mmol/L BUN 12 (7-17) mg/dL Creatinine 0.32 L (0.52-1.04) mg/dL Estimated GFR > 60 (>60) mL/min BUN/Creatinine Ratio 37.5 H (6-22) Glucose 93 (70-100) mg/dL Lactate (0.7-2.1) mmol/L Calcium 7.8 L (8.4-10.2) mg/dL Ferritin (6-137) ng/mL Total Bilirubin 0.6 (0.2-1.3) mg/dL AST 42 H (14-36) IU/L ALT 27 (<35) IU/L Alkaline Phosphatase 47 (38-126) U/L Lactate Dehydrogenase (313-618) U/L Total Creatine Kinase 89 (30-135) U/L CK-MB (CK-2) TNP CK-MB (CK-2) Rel Index TNP Troponin I < 0.012 (0.01-0.034) ng/mL C-Reactive Protein (<1.0) mg/dL NT-Pro-B Natriuret Pep 536 H (<125) pg/mL Total Protein 7.0 (6.3-8.2) g/dL Albumin 3.7 (3.5-5.0) g/dL Globulin 3.3 (1.7-4.1) g/dL Albumin/Globulin Ratio 1.1 (1.0-2.8) Procalcitonin 0.11 (<0.5) ng/mL SARS-CoV-2 (PCR) (Negative) Influenza A (RT-PCR) (NEGATIVE) Influenza B (RT-PCR) (NEGATIVE) RSV (PCR) (Negative) 08/20/21 08/20/21 08/20/21 Range/Units 17:40 17:40 22:20 WBC (4.5-11.0) X10^3/uL RBC (4.0-5.2) X10^6/uL Hgb (12.0-16.0) g/dL Hct (36-46) % MCV (80-100) fL MCH (26-34) PG MCHC (30-36) % RDW (11.6-14.8) % Plt Count (150-400) X10^3/uL Neut % (Auto) (50-75) % Lymph % (Auto) (25-40) % Estill % (Auto) (3-14) % Eos % (Auto) (2-4) % Baso % (Auto) (0-2) % Neut # (Auto) (7740-0969) /uL Lymph # (Auto) (4573-5104) /uL Estill # (Auto) (0-900) /uL Eos # (Auto) (0-450) /uL Baso # (Auto) (0-100) /uL D-Dimer (<230) ng/mL ABG pH 7.34 L (7.35-7.45) ABG pCO2 43.1 (35-45) mmHg ABG pO2 81 (80-100) mmHg ABG HCO3 23 (22-26) mmol/L ABG Total CO2 25 (21-31) mmol/L ABG O2 Saturation 95 (95-100) % ABG Base Excess -2.0 (-2-2) mmol/L FiO2 100 Sodium (137-145) mmol/L Potassium (3.4-5.1) mmol/L Chloride (98-107) mmol/L Carbon Dioxide (22-32) mmol/L BUN (7-17) mg/dL Creatinine (0.52-1.04) mg/dL Estimated GFR (>60) mL/min BUN/Creatinine Ratio (6-22) Glucose (70-100) mg/dL Lactate 0.8 (0.7-2.1) mmol/L Calcium (8.4-10.2) mg/dL Ferritin 219 H (6-137) ng/mL Total Bilirubin (0.2-1.3) mg/dL AST (14-36) IU/L ALT (<35) IU/L Alkaline Phosphatase (38-126) U/L Lactate Dehydrogenase 516 (313-618) U/L Total Creatine Kinase (30-135) U/L CK-MB (CK-2) CK-MB (CK-2) Rel Index Troponin I (0.01-0.034) ng/mL C-Reactive Protein 1.5 H (<1.0) mg/dL NT-Pro-B Natriuret Pep (<125) pg/mL Total Protein (6.3-8.2) g/dL Albumin (3.5-5.0) g/dL Globulin (1.7-4.1) g/dL Albumin/Globulin Ratio (1.0-2.8) Procalcitonin (<0.5) ng/mL SARS-CoV-2 (PCR) (Negative) Influenza A (RT-PCR) (NEGATIVE) Influenza B (RT-PCR) (NEGATIVE) RSV (PCR) (Negative) Imaging Data Chest x-ray: Radiologist's Impression: #1 FINDINGS:? ? Surgical changes and devices:? None.? ? Lungs and pleura:? There is elevation of the left hemidiaphragm.? Poorly defined opacity is seen at the left lung base.? Generalized mild interstitial prominence can be seen. ? Mediastinum:? Mediastinal contours appear normal.? Heart size is mildly enlarged.? ? Bones and chest wall:? No suspicious bony lesions.? Mild levoconvex scoliotic curvature is noted. ? Overlying soft tissues appear unremarkable.? ? ? IMPRESSION:? There is elevation of the left hemidiaphragm, which is attributed to diaphragmatic paralysis.? If clinically appropriate, please consider a dedicated, scheduled fluoroscopic sniff test for further evaluation.? ? At the left lung base, there is poorly defined opacity seen, which is attributed to atelectasis.? Infiltrate is possible, yet considered to be less likely. ? Mild cardiomegaly the and mild generalized interstitial prominence.? Please consider CHF/fluid overload.? ? Dictated by: Juvencio Sales M.D. on 08/20/2021 at 10:37? ?? #2 FINDINGS:? ? Surgical changes and devices:? There is a new endotracheal tube with the tip approximately 3 cm from the beau.? A new nasogastric tube extends into the stomach in the left upper quadrant.? A new right internal jugular catheter is present with the tip in the region of the cavoatrial junction. ? Lungs and pleura:? There is markedly increased left perihilar consolidation with air bronchograms.? Elevation of the left hemidiaphragm is redemonstrated.? No definite pleural effusions or pneumothorax on this supine study. ? Mediastinum:? Mediastinal contours appear unchanged.? Heart size is normal.? ? Bones and chest wall:? No suspicious bony lesions.? Overlying soft tissues appear unremarkable.? ? IMPRESSION:? ? 1. New lines and tubes appear in appropriate position as described. ? 2. Markedly increased left perihilar consolidation with air bronchograms sugg estive of progressive pneumonia.? Given the rapid change, the findings may also reflect sequelae of aspiration or atelectasis. ? 3. No definite pneumothorax.? ? ? Dictated by: Robert Hill M.D. on 08/20/2021 at 22:18? ?? CT scan - chest: Radiologist's Impression: FINDINGS:? Image quality:? Excellent.? ? Pulmonary arteries:? Pulmonary arteries are prominent in size, and demonstrate no intraluminal filling defects to suggest central pulmonary embolism.? ? Lungs and pleura:? There is marked narrowing/occlusion of distal left mainstem bronchus and left upper and lower lobe airways with complete atelectasis of left lung.? There is also narrowing of right lower lobe bronchi with near complete atelectasis of right lower lobe.? Aerated right upper and middle lobes show no focal infiltrate.? No pleural effusion or pneumothorax. ? Mediastinum:? Heart size is normal, without pericardial effusion.? No mediastinal or hilar adenopathy.? Thoracic aorta is normal in caliber and enhancement.? Esophagus is normal in caliber, without hiatal hernia.? ? Bones and chest wall:? No suspicious bony lesions.? Ribs and thoracic spine appear intact throughout.? Thyroid gland is enlarged extending to anterior superior mediastinum with suggestion of large inferior thyroid lobe nodule measures 3.1 x 2.7 cm in size.? No axillary or supraclavicular adenopathy.? ? Abdomen:? Visualized upper abdominal solid organs appear normal in the early a rterial phase of enhancement.? ? IMPRESSION:? 1. No pulmonary emboli.? Mild prominence of pulmonary artery size is which can be seen associated with pulmonary vascular hypertension. 2. Interval significant worsening of bilateral lung aeration with significant narrowing/occlusion involving left distal mainstem bronchus and left upper and lower lobe bronchi as well as right lower lobe bronchi with near complete atelectasis of right lower lobe and complete atelectasis of left upper and lower lobe.? No pleural effusion or pneumothorax.? 3. No mediastinal or hilar lymphadenopathy by size criteria. 4. No thoracic aortic aneurysm or dissection.? ? ? Dictated by: Lee Baugh M.D. on 08/20/2021 at 19:01? ?? MDM Narrative Medical decision making narrative: This is a 31-year-old female with history muscular dystrophy. Patient o ccasionally dips to 88%, COVID, influenza and RSV were obtained, chest x-ray lab work. In the department patient occasionally drop her O2 sat sometimes with good pleth other times not although her mom states she has not been told this specifically in the past. Mother states that she herself who has muscular dystrophy does tend to run a little bit lower. Patient does not appear to be in any distress and does not express any, she has had increasing O2 requirements in the department. Multiple nurses and myself attempted IV axis and ultrasound- guided PICC line was placed labs are obtained shows an elevated dimer but no other major her lab abnormalities other than slightly elevated BNP. Patient developed fever treated with Tylenol. With her O2 requirements increasing she was placed on high-flow. Just before had ABG which does show some mild CO2 retention but low O2. Patient had intermittent dips in her O2 but has been more appropriate. With her history of muscular dystrophy discussed with family about BiPAP or intubation. Mother has been unclear if they are okay with intubation and patient shrugs her shoulders when asked directly. Patient does use CPAP home and they are open to BiPAP here in the department. Plan for serial ABGs and escalation of airway management as needed. Seeking placement, spoke with induction machine setter at [facility] if beds available she is wait listed, all facilities in the region or being contacted. Discussed at length and frankly with her mother that she is recommended to have dexamethasone, remdesivir an oral antiviral. She refuses the remdesivir but is agreeable to the other choices. She eventually agreed to intubation if needed emergently but still states she needs to talk to the before this can be completely finalized. 750pm transfer center. No beds currently. Pt is re- evaluated. She has been on BiPap 80% Fi02, 15/7 pressures for the last 15 min and in tolerating it. Will recheck ABG at 830 pm and again discussed the need for intubation with her mother. Apparantly talked with her but he was in mosque and unable to talk. 8pm [facility] has bed available at this time. Will begin transfer [facility] 930 patient intubated without difficulty. Will use propofol sedation with fentanyl pushes. Right internal jugular central line placed without difficulty. OG line placed. All confirmed with chest x-ray. Aerating her left lung much more appropriately after intubation with copious amounts of secretions being returned. Pressures falling. Based on internal jugular ultrasound compression she is intravascularly dry so 1L of fluid is being given. Norepinephrine is started with a goal of maps at 65. Air lift transport is being initiated Critical Care Time <Aretha Childs DO - Last Filed: 08/21/21 19:30> Critical Care Time Attestation: The high probability of a clinically significant, sudden or life threatening deterioration of the [pulm, cardiac] system(s) required my full and direct attention, intervention and personal management. The aggregate critical care time was [] minutes. This time is in addition to time spent performing reported procedures but includes the following: [x] Data Review and interpretation [x] Patient assessment and monitoring of vital signs [x] Documentation [x] Medication orders and management <Corinne Rosa MD - Last Filed: 08/21/21 02:21> Critical Care Time Attestation: The high probability of a clinically significant, sudden or life threatening deterioration of the [pulm, cardiac] system(s) required my full and direct attention, intervention and personal management. The aggregate critical care time was [67] minutes. This time is in addition to time spent performing reported procedures but includes the following: [x] Data Review and interpretation, extensive discussions with family [x] Patient assessment and monitoring of vital signs [x] Documentation [x] Medication orders and management Discharge Plan Departure Patient Disposition: [facility] Clinical Impression: Acute respiratory failure with hypoxia, Mucus plugging of bronchi, Pneumonia due to 2019 novel coronavirus Referrals: Jennifer Bustillos MD [Primary Care Provider] -
[2021-08-20 11:02] LABS: Influenza A - CEPHEID Flu A NEGATIVE (NEGATIVE); Influenza B - CEPHEID Flu B NEGATIVE (NEGATIVE); Respiratory Syncytial Virus Negative (Negative)
--- NOTE | 2021-08-20 11:13 | DI.RAD.S_ITS ---
PROCEDURE: XR CHEST 1V INDICATIONS: cough, low grade fever, hx muscular dystrophy TECHNIQUE: One view of the chest was acquired. COMPARISON: [facility], , CHEST 2 VIEW, 06/09/2014, 10:56. FINDINGS: Surgical changes and devices: None. Lungs and pleura: There is elevation of the left hemidiaphragm. Poorly defined opacity is seen at the left lung base. Generalized mild interstitial prominence can be seen. Mediastinum: Mediastinal contours appear normal. Heart size is mildly enlarged. Bones and chest wall: No suspicious bony lesions. Mild levoconvex scoliotic curvature is noted. Overlying soft tissues appear unremarkable. IMPRESSION: There is elevation of the left hemidiaphragm, which is attributed to diaphragmatic paralysis. If clinically appropriate, please consider a dedicated, scheduled fluoroscopic sniff test for further evaluation. At the left lung base, there is poorly defined opacity seen, which is attributed to atelectasis. Infiltrate is possible, yet considered to be less likely. Mild cardiomegaly the and mild generalized interstitial prominence. Please consider CHF/fluid overload. Dictated by: Juvencio Sales M.D. on 08/20/2021 at 10:37 Approved by: Juvencio Sales M.D. on 08/20/2021 at 10:39
[2021-08-20 11:55] LABS: COVID-19 CEPHEID PCR (VTM/NP) POSITIVE (Negative)
[2021-08-20] MEDS: ACETAMINOPHEN SUSP 650 MG/20.3 ML UDC PO (16:44)
[2021-08-20 17:55] LABS: Add Manual Diff / Slide Review NO; Basophils Absolute Auto 0 /uL (0-100); Basophils Percent Auto 0.1 % (0-2); Eosinophils Absolute Auto 0 /uL (0-450); Hematocrit 38.6 % (36-46); Hemoglobin 12.6 g/dL (12.0-16.0); Lymphocytes Absolute Auto 300 /uL (1100-4500); Lymphocytes Percent Auto 7.3 % (25-40); Mean Corpuscular HGB Conc 32.8 % (30-36); Mean Corpuscular Hemoglobin 30.7 PG (26-34); Mean Corpuscular Volume 93.6 fL (80-100); Monocytes Absolute Auto 300 /uL (0-900); Monocytes Percent Auto 8.8 % (3-14); Neutrophils Absolute Auto 3300 /uL (1500-7000); Neutrophils Percent Auto 83.8 % (50-75); Platelet Count 147 X10^3/uL (150-400); Red Blood Cell Count 4.12 X10^6/uL (4.0-5.2); Red Cell Distribution Width 14.5 % (11.6-14.8); White Blood Cell Count 3.9 X10^3/uL (4.5-11.0)
[2021-08-20 18:03] LABS: D Dimer 591 ng/mL (<230)
--- NOTE | 2021-08-20 18:06 | DI.CT.S_ITS ---
PROCEDURE: CT ANGIO CHEST PE PROTOCOL INDICATIONS: covid/ + D dimer, respiratory distress TECHNIQUE: After the administration of intravenous contrast, 2 mm thick sections acquired from the pulmonary apices to the posterior costophrenic angles. 3-dimensional maximum intensity projection (MIP) coronal and sagittal reformats were then acquired through the thorax. For radiation dose reduction, the following was used: automated exposure control, adjustment of mA and/or kV according to patient size. COMPARISON: [facility], CR, XR CHEST 1V, 08/20/2021, 11:22. FINDINGS: Image quality: Excellent. Pulmonary arteries: Pulmonary arteries are prominent in size, and demonstrate no intraluminal filling defects to suggest central pulmonary embolism. Lungs and pleura: There is marked narrowing/occlusion of distal left mainstem bronchus and left upper and lower lobe airways with complete atelectasis of left lung. There is also narrowing of right lower lobe bronchi with near complete atelectasis of right lower lobe. Aerated right upper and middle lobes show no focal infiltrate. No pleural effusion or pneumothorax. Mediastinum: Heart size is normal, without pericardial effusion. No mediastinal or hilar adenopathy. Thoracic aorta is normal in caliber and enhancement. Esophagus is normal in caliber, without hiatal hernia. Bones and chest wall: No suspicious bony lesions. Ribs and thoracic spine appear intact throughout. Thyroid gland is enlarged extending to anterior superior mediastinum with suggestion of large inferior thyroid lobe nodule measures 3.1 x 2.7 cm in size. No axillary or supraclavicular adenopathy. Abdomen: Visualized upper abdominal solid organs appear normal in the early arterial phase of enhancement. IMPRESSION: 1. No pulmonary emboli. Mild prominence of pulmonary artery size is which can be seen associated with pulmonary vascular hypertension. 2. Interval significant worsening of bilateral lung aeration with significant narrowing/occlusion involving left distal mainstem bronchus and left upper and lower lobe bronchi as well as right lower lobe bronchi with near complete atelectasis of right lower lobe and complete atelectasis of left upper and lower lobe. No pleural effusion or pneumothorax. 3. No mediastinal or hilar lymphadenopathy by size criteria. 4. No thoracic aortic aneurysm or dissection. Dictated by: Lee Baugh M.D. on 08/20/2021 at 19:01 Approved by: Lee Baugh M.D. on 08/20/2021 at 19:08
[2021-08-20 18:10] LABS: Alanine Aminotransferase 27 IU/L (<35); Albumin 3.7 g/dL (3.5-5.0); Albumin Globulin Ratio 1.1 (1.0-2.8); Alkaline Phosphatase 47 U/L (38-126); Aspartate Aminotransferase 42 IU/L (14-36); BUN Creatinine Ratio 37.5 (6-22); Bilirubin Total 0.6 mg/dL (0.2-1.3); Blood Urea Nitrogen 12 mg/dL (7-17); Calcium 7.8 mg/dL (8.4-10.2); Carbon Dioxide 27 mmol/L (22-32); Chloride 103 mmol/L (98-107); Creatine Kinase 89 U/L (30-135); Estimated Glomerular Filt Rate > 60 mL/min (>60); Globulin 3.3 g/dL (1.7-4.1); Glucose 93 mg/dL (70-100); HEMOLYSIS 31 (0-50); Potassium 3.6 mmol/L (3.4-5.1); Sodium 138 mmol/L (137-145)
[2021-08-20 18:11] LABS: Lactate (Lactic Acid) 0.8 mmol/L (0.7-2.1)
[2021-08-20 18:13] LABS: C-Reactive Protein Quant 1.5 mg/dL (<1.0); Lactate Dehydrogenase 516 U/L (313-618)
[2021-08-20] MEDS: DEXAMETHASONE 10 MG/ML VIAL 6 MG IV (18:14)
[2021-08-20 18:22] LABS: NT-proBNP (BNP-Adult 18+) 536 pg/mL (<125); Troponin I < 0.012 ng/mL (0.01-0.034)
[2021-08-20 18:31] LABS: Procalcitonin 0.11 ng/mL (<0.5)
[2021-08-20 18:45] LABS: Ferritin 219 ng/mL (6-137)
--- NOTE | 2021-08-20 19:04 | PC.NURSE ---
patient and mother decline the remdisivir. provider aware.
[2021-08-20 19:18] LABS: PCO2 ABG 50.5 mmHg (35-45); pH ABG 7.35 (7.35-7.45)
[2021-08-20 19:19] LABS: HCO3 ABG 28 mmol/L (22-26); PO2 ABG 44 mmHg (80-100); TCO2 ABG 29 mmol/L (21-31)
[2021-08-20 19:20] LABS: Fractionated Inspired Oxygen 32; Oxygen Saturation ABG 77 % (95-100)
--- NOTE | 2021-08-20 20:53 | DI.RAD.S_ITS ---
PROCEDURE: XR CHEST 1V INDICATIONS: post intubation, lines TECHNIQUE: One view of the chest was acquired. COMPARISON: [facility], CT, CT ANGIO CHEST PE PROTOCOL, 08/20/2021, 18:31. [facility], CR, XR CHEST 1V, 08/20/2021, 11:22. FINDINGS: Surgical changes and devices: There is a new endotracheal tube with the tip approximately 3 cm from the beau. A new nasogastric tube extends into the stomach in the left upper quadrant. A new right internal jugular catheter is present with the tip in the region of the cavoatrial junction. Lungs and pleura: There is markedly increased left perihilar consolidation with air bronchograms. Elevation of the left hemidiaphragm is redemonstrated. No definite pleural effusions or pneumothorax on this supine study. Mediastinum: Mediastinal contours appear unchanged. Heart size is normal. Bones and chest wall: No suspicious bony lesions. Overlying soft tissues appear unremarkable. IMPRESSION: 1. New lines and tubes appear in appropriate position as described. 2. Markedly increased left perihilar consolidation with air bronchograms suggestive of progressive pneumonia. Given the rapid change, the findings may also reflect sequelae of aspiration or atelectasis. 3. No definite pneumothorax. Dictated by: Robert Hill M.D. on 08/20/2021 at 22:18 Approved by: Robert Hill M.D. on 08/20/2021 at 22:23
[2021-08-20] MEDS: propofoL 200 MG/20 ML VIAL 100 MG IV ×2 (21:11→21:19)
[2021-08-20] MEDS: SUCCINYLCHOLINE 200 MG/10 ML VIAL 40 MG IV (21:12)
[2021-08-20] MEDS: propofoL 1,000 MG/100 ML VIAL 2.286 MG IV (21:19)
[2021-08-20] MEDS: SODIUM CHLORIDE 0.9% 1,000 ML 1000 ML IV (21:20)
[2021-08-20] MEDS: fentaNYL 100 MCG/2 ML INJ IV ×4 (21:25→23:16)
[2021-08-20] MEDS: NOREPINEPHRINE BITARTRATE/D5W 4 MG/250 ML PLAST..BAG 7.5 MG IV (21:45)
[2021-08-20] MEDS: NOREPINEPHRINE BITARTRATE/D5W 4 MG/250 ML PLAST..BAG IV (22:20)
[2021-08-20] MEDS: propofoL 1,000 MG/100 ML VIAL 11.431 MG IV (23:22)
[2021-08-20 23:39] LABS: Fractionated Inspired Oxygen 100; HCO3 ABG 23 mmol/L (22-26); Oxygen Saturation ABG 95 % (95-100); PCO2 ABG 43.1 mmHg (35-45); PO2 ABG 81 mmHg (80-100); TCO2 ABG 25 mmol/L (21-31); pH ABG 7.34 (7.35-7.45)
--- NOTE | 2021-08-20 23:45 | PC.NURSE ---
patient transported by airlift with levophed and propfol running via central line. provider aware and no new orders at this time.
== END 2021-08-20 23:45 | disposition short-term general hospital (02) ==
PROVIDERS: Emergency Medicine; Emergency Provider Emergency Medicine; Family Provider Family Medicine; PCP Family Medicine
DX: U07.1 COVID-19 (principal); J12.82 Pneumonia due to coronavirus disease 2019; J96.01 Acute respiratory failure with hypoxia; T17.500A Unspecified foreign body in bronchus causing asphyxiation, initial encounter; M54.50 Low back pain, unspecified; W19.XXXA Unspecified fall, initial encounter
CPT/HCPCS: 0241U; 31500; 36415; 36556; 36600; 71045; 71275; 80053; 82550; 82728; 82805; 83605; 83615; 83880; 84145; 84484; 85025; 85379; 86140; 87040; 94002; 94003; 94660; 94799; 96365; 96366; 96375; 99152; 99153; 99285; 99291; 99292; J0330; J1100; J2704; J3010

== ENCOUNTER 2023-07-18 09:20 | Inpatient (IN) | payer BC, OTHER, MEDICAID, SELFPAY ==
[2021-08-20 23:00] VITALS: PULSE 64; RESP 18; O2SAT 100
[2023-07-18] VITALS (41 sets, daily range): BP systolic 91–129; BP diastolic 54–77; PULSE 85–105; RESP 17–32; TEMP 36.4–37.5; O2SAT 86–96; BMI 23.3
--- NOTE | 2023-07-18 09:58 | ED_ITS ---
HPI - SOB/Dyspnea General Chief Complaint: Shortness of Breath/Dyspnea Stated Complaint: loss of apetite, loosing her voice Time Seen by Provider: 07/18/23 09:57 Source: patient and family Mode of arrival: Ambulatory History of Present Illness HPI Narrative: 31-year-old female history of muscular dystrophy, patient has had prior intubation for respiratory failure secondary to COVID pneumonia and mucus plugging or rhonchi. Patient presents today several days some nasal congestion, wet cough that has been nonproductive. Patient has not had any known fevers. She has not had any chest pain or pressure. She denies any shortness of breath. No nausea or vomiting. Decreased appetite. She has had normal bowel movements. No new swelling in extremities. No urinary symptoms. Patient is not on any daily medications. Denies any prior surgeries. Her last hospitalization she was intubated had to be reintubated min spent about 30 days in the hospital. No known drug allergies. No tobacco, alcohol or recreational drugs. She is accompanied by family. Dad noted a low O2 sat overnight from 88% during a random check for a brief period but states she has been running mid 90s to 92%. Primary care provider is Serge on [facility]. Related Data Home Medications Medication Instructions Recorded Confirmed No Known Home Medications 07/18/23 07/18/23 Allergies Allergy/AdvReac Type Severity Reaction Status Date / Time No Known Drug Allergies Allergy Verified 07/18/23 09:38 Review of Systems Review of Systems ROS Unobtainable: All systems reviewed & are unremarkable except as noted in HPI and below Patient History Social History Smoking Status: Never smoker alcohol intake: never Smoking Status: Never smoker Substance Use Type: does not use Exam Narrative Exam Narrative: GEN: Female, alert and oriented, patient appears to be in mild distress. HEENT: Atraumatic, pupils are equal round reactive to light, extraocular movements are intact, nares are clear, there is no conjunctival pallor. Throat is clear without any exudates, erythema, tonsillar enlargement or uvular deviation HEART: Regular rate and rhythm without murmur, clicks, rubs. Pulses are equal in upper and lower extremities LUNGS:Lungs clear to auscultation, no wheezes, rales, crackles, chest moves symmetrically, no tachypnea or accessory muscle use. Patient has a occasional cough that sounds wet. ABD:bowel sounds normal, soft, non-tender, no guarding, rebound, rigidity, no masses noted, no hepatosplenomegaly :No CVA tenderness MSCL: Non-tender, full range of motion NEURO:CN 2-12 intact, sensation normal SKIN: No rash, erythema or other skin changes Initial Vital Signs Initial Vital Signs: Vital Signs Pulse Rate 100 H 07/18/23 09:32 Pulse Oximetry 94 07/18/23 09:32 Course Orders Ordered: ED Orders 07/18/23 10:15 EKG-12 Lead Stat 07/18/23 10:26 Respiratory Panel (Film Array) Stat 07/18/23 11:00 BNP [NT-proBNP (BNP-Adult 18+)] Stat Blood Culture Stat Complete Blood Count AUTO DIFF Stat Comprehensive Metabolic Panel Stat D Dimer Stat Lactate (Lactic Acid) Stat Procalcitonin Stat Troponin & CK Cardiac Panel Stat 07/18/23 12:42 VBG [Venous Blood Gas] Stat 07/18/23 13:01 CT angio chest PE protocol Stat Acetaminophen (Acetaminophen 325 Mg Tablet) 650 mg PO Q6H PRN PRN Reason: Fever/Mild Pain (1-3) Enoxaparin Sodium (Enoxaparin 40 Mg/0.4 Ml Syringe) 40 mg SUBCUT DAILY PRISCILLA Guaifenesin (Guaifenesin Solution 100 Mg/5 Ml Udc) 100 mg PO Q4HR PRN PRN Reason: Cough Sodium Chloride (Normal Saline 0.9%) 1,000 mls @ 150 mls/hr IV CONT PRISCILLA Last Infusion: 07/18/23 16:20 Dose: 150 mls/hr Documented By: JUAN F Admin: 07/18/23 15:32 Dose: 150 mls/hr Documented By: JUAN F Ondansetron HCl (Ondansetron 4 Mg/2 Ml Inj) 4 mg IV Q8HR PRN PRN Reason: Nausea And Vomiting Discontinued Medications Ceftriaxone Sodium 1,000 mg/ (Sodium Chloride) 100 mls @ 200 mls/hr IV NOW ONE Stop: 07/18/23 12:25 Last Infusion: 07/18/23 13:20 Dose: Infused Documented By: Admin: 07/18/23 12:41 Dose: 200 mls/hr Documented By: JUAN F Azithromycin 500 mg/ Dextrose 250 mls @ 250 mls/hr IV NOW ONE Stop: 07/18/23 12:25 Last Infusion: 07/18/23 15:16 Dose: Infused Documented By: JUAN F Admin: 07/18/23 13:33 Dose: 250 mls/hr Documented By: YULIANA Sodium Chloride (Normal Saline 0.9%) 1,000 mls @ 1,000 mls/hr IV BOLUS ONE Stop: 07/18/23 13:28 Last Infusion: 07/18/23 15:16 Dose: Infused Documented By: JUAN F Admin: 07/18/23 12:45 Dose: 1,000 mls/hr Documented By: JUAN F Vital Signs Vital signs: Vital Signs - 8 hr 07/18/23 11:30 07/18/23 11:30 07/18/23 11:43 Temperature Pulse Rate 96 H 97 H Respiratory Rate 28 H 23 Blood Pressure 105/69 Pulse Oximetry 93 89 L 94 Oxygen Delivery Method Oxygen Flow Rate 07/18/23 11:43 07/18/23 11:45 07/18/23 12:00 Temperature Pulse Rate 95 H Respiratory Rate 24 Blood Pressure 107/67 Pulse Oximetry 96 89 L Oxygen Delivery Method Nasal Cannula Oxygen Flow Rate 3 07/18/23 12:00 07/18/23 12:13 07/18/23 12:30 Temperature Pulse Rate 97 H Respiratory Rate 18 Blood Pressure 109/70 109/71 Pulse Oximetry 94 Oxygen Delivery Method Nasal Cannula Oxygen Flow Rate 2 07/18/23 12:30 07/18/23 13:00 07/18/23 13:00 Temperature Pulse Rate 104 H 100 H Respiratory Rate 30 H 28 H Blood Pressure 112/67 Pulse Oximetry 94 93 Oxygen Delivery Method Oxygen Flow Rate 07/18/23 13:30 07/18/23 13:30 07/18/23 13:52 Temperature Pulse Rate 100 H 99 H Respiratory Rate 32 H 29 H Blood Pressure 109/68 Pulse Oximetry 95 95 Oxygen Delivery Method Oxygen Flow Rate 07/18/23 13:52 07/18/23 14:00 07/18/23 14:00 Temperature Pulse Rate 100 H Respiratory Rate 30 H Blood Pressure 110/68 106/64 Pulse Oximetry 96 Oxygen Delivery Method Oxygen Flow Rate 07/18/23 14:10 07/18/23 14:30 07/18/23 14:30 Temperature 99.0 F Pulse Rate 102 H Respiratory Rate 25 H Blood Pressure 107/68 Pulse Oximetry 93 Oxygen Delivery Method Oxygen Flow Rate 07/18/23 15:00 07/18/23 15:00 07/18/23 15:30 Temperature Pulse Rate 99 H Respiratory Rate 24 Blood Pressure 114/61 101/61 Pulse Oximetry 92 Oxygen Delivery Method Oxygen Flow Rate 07/18/23 15:30 Temperature Pulse Rate 97 H Respiratory Rate 28 H Blood Pressure Pulse Oximetry 93 Oxygen Delivery Method Oxygen Flow Rate MDM - SOB/Dyspnea Lab Data 07/18/23 11:00 07/18/23 11:00 Labs: Lab Results 07/18/23 07/18/23 07/18/23 Range/Units 10:26 11:00 12:42 WBC 10.0 (4.5-11.0) X10^3/uL RBC 4.42 (4.0-5.2) X10^6/uL Hgb 14.3 (12.0-16.0) g/dL Hct 43.1 (36-46) % MCV 97.5 (80-100) fL MCH 32.4 (26-34) PG MCHC 33.2 (30-36) % RDW 14.1 (11.6-14.8) % Plt Count 163 (150-400) X10^3/uL Neut % (Auto) 86.3 H (50-75) % Lymph % (Auto) 7.2 L (25-40) % Carolina % (Auto) 6.1 (3-14) % Eos % (Auto) 0.2 L (2-4) % Baso % (Auto) 0.2 (0-2) % Neut # (Auto) 8700 H (4525-9690) /uL Lymph # (Auto) 700 L (2483-5950) /uL Carolina # (Auto) 600 (0-900) /uL Eos # (Auto) 0 (0-450) /uL Baso # (Auto) 0 (0-100) /uL D-Dimer 627 H (<500) ng/ml VBG pH 7.30 L (7.33-7.43) VBG pCO2 51.4 H (45-50) mmHg VBG pO2 46 H (35-45) mmHg VBG HCO3 25 (24-28) mmol/L VBG Total CO2 27 (24-29) mmol/L VBG O2 Saturation 76 H (70-75) % VBG Base Excess -1.0 L (0-4) mmol/L FiO2 21 Sodium 145 (137-145) mmol/L Potassium 4.0 (3.4-5.1) mmol/L Chloride 111 H (98-107) mmol/L Carbon Dioxide 23 (22-32) mmol/L BUN 16 (7-17) mg/dL Creatinine 0.34 L (0.52-1.04) mg/dL Estimated GFR > 60 (>60) mL/min BUN/Creatinine Ratio 47.1 H (6-22) Glucose 74 (70-100) mg/dL Lactate 0.8 (0.7-2.1) mmol/L Calcium 8.9 (8.4-10.2) mg/dL Total Bilirubin 1.0 (0.2-1.3) mg/dL AST 31 (14-36) IU/L ALT 25 (<35) IU/L Alkaline Phosphatase 80 (38-126) U/L Total Creatine Kinase 91 (30-135) U/L Troponin I < 0.012 (0.01-0.034) ng/mL NT-Pro-B Natriuret Pep 369 H (<125) pg/mL Total Protein 7.7 (6.3-8.2) g/dL Albumin 4.4 (3.5-5.0) g/dL Globulin 3.3 (1.7-4.1) g/dL Albumin/Globulin Ratio 1.3 (1.0-2.8) Procalcitonin 0.16 (<0.5) ng/mL Chlamy pneumoniae PCR Not detected (Not Detect) Adenovirus (PCR) Not detected (Not Detect) B.parapertussis DNA PCR Not detected (Not Detecte) Coronavirus OC43 (PCR) Not detected (Not Detect) Coronavirus HKU1 (PCR) Not detected (Not Detect) Coronavirus 229E (PCR) Not detected (Not Detect) SARS-CoV-2 (PCR) Not detected (Not Detecte) Coronavirus NL63 (PCR) Not detected (Not Detect) Human Metapneumovir PCR Not detected (Not Detect) Influenza Type A (PCR) Not detected (Not Detect) Influenza Type B (PCR) Not detected (Not Detect) M. pneumoniae (PCR) Not detected (Not Detect) Parainfluenza 1 (PCR) Not detected (Not Detect) Parainfluenza 2 (PCR) Not detected (Not Detect) Parainfluenza 3 (PCR) Not detected (Not Detect) Parainfluenza 4 (PCR) Not detected (Not Detect) RSV (PCR) Not detected (Not Detect) Entero/Rhino (PCR) Detected H (Not Detect) Imaging Data Chest x-ray: Radiologist's Impression: Close Chest X-Ray (Signed) Hilary Erwin - 07/18/23 Chest X-Ray (Signed) Hilary Erwin - 07/02/23 Telemetry Strips 07/02/23 Chest X-Ray (Signed) Adrien Arellano - 05/07/23 Abdomen/Pelvis CT (Signed) Opal Dudley - 06/04/[address] (Signed) Maninder Javed - 06/04/22 Shoulder X-Ray (Signed) Lee Baugh - 06/04/[address] (Signed) Javed,Maninder - 06/04/22 Chest X-Ray (Signed) Lee Baugh - 06/04/22 Launch[facility] [address] XRay Report Signed Patient: Andrea Beaulieu MR#: [id number] : 11/18/1940 Acct:[id number] Age/Sex: 82 / M Date of Service: 07/18/23 Loc: Accession Number: [id number] Procedure: XR chest 1V Ordering Provider: Aretha Childs D.O. PROCEDURE: XR CHEST 1V INDICATIONS: Arrhythmia TECHNIQUE: One view of the chest was acquired. COMPARISON: [facility], , XR CHEST 1V, 07/02/2023, 12:25. FINDINGS: Surgical changes and devices: Cardiac event recorder. Lungs and pleura: Bibasilar atelectasis. No pleural effusions or pneumothorax. Mediastinum: Mediastinal contours appear normal. Heart is enlarged. Bones and chest wall: No suspicious bony lesions. Overlying soft tissues appear unremarkable. IMPRESSION: No acute cardiopulmonary abnormality is seen. Dictated by: Hilary Erwin MD, PhD on 07/18/2023 at 11:06 Approved by: Hilary Erwin MD, PhD on 07/18/2023 at 11:07 CT scan - chest: Radiologist's Impression: Close Chest CTA (Signed) Tamra Campo - 07/18/23 Chest X-Ray (Signed) Hilary Erwin - 07/18/23 Chest X-Ray (Signed) HillRobert teague - 08/20/21 Chest CTA (Signed) Lee Baugh - 08/20/21 Chest X-Ray (Signed) Juvencio Sales - 08/20/21 Echocardiogram Ultrasound (Signed) Lindsey Barrios - 08/16/17 [facility] [address] [address] [address] Scan Report Signed Patient: Danica Goss MR#: [id number] : 1990 Acct:[id number] Age/Sex: 33 / Date of Service: 07/18/23 Loc: ED Accession Number: [id number] Procedure: CT angio chest PE protocol Ordering Provider: Aretha Childs D.O. PROCEDURE: CT ANGIO CHEST PE PROTOCOL INDICATIONS: hypoxia, myotonic dystrophy, elevated dimer TECHNIQUE: After the administration of intravenous contrast, 2 mm thick sections acquired from the pulmonary apices to the posterior costophrenic angles. 3-dimensional maximum intensity projection (MIP) coronal and sagittal reformats were then acquired through the thorax. For radiation dose reduction, the following was used: automated exposure control, adjustment of mA and/or kV according to patient size. COMPARISON: [facility], CT, CT ANGIO CHEST PE PROTOCOL, 08/20/2021, 18:31. FINDINGS: Image quality: Diagnostic. Pulmonary arteries: Pulmonary arteries are normal in size, and demonstrate no intraluminal filling defects to suggest central pulmonary embolism. Lower Neck: No enlarged lymph nodes. Thyroid: No thyroid nodules which require sonographic follow up, per consensus guidelines. Axillae: No enlarged lymph nodes. Chest Wall: Unremarkable. Bones: Unremarkable. Lungs and Pleura: Patchy and consolidative opacity is present in the left base. Is noted in 2021, there is significant opacification of the entire left hemithorax as well as right base. Heart: Heart size is normal. No pericardial effusion. Thoracic Vessels: No aortic aneurysm. Mediastinum and Ashlie: No enlarged lymph nodes. Esophagus: No wall thickening. No hiatal hernia. Upper Abdomen: Visualized upper abdomen solid organs and bowel loops appear normal. IMPRESSION: No pulmonary embolus. Patchy and consolidative opacity in the left base suggestive of pneumonia. Recommend interval follow-up to document resolution. Dictated by: Tamra Campo M.D. on 07/18/2023 at 14:37 Approved by: Tamra Campo M.D. on 07/18/2023 at 14:39 ECG Data Attestation: I personally reviewed and interpreted this ECG as follows: Prior ECG tracings: available for review Interpretation: Sinus with a first-degree AV block left axis deviation, rate of 95 NV 234 QRS of 168 QTC 500. Patient has changes in V2 but other leads appears similar. MDM Narrative Medical decision making narrative: 33-year-old female who presents with complaint of cough hoarseness and dad noted a low O2 sat overnight on random check when he woke up in the middle of the night. Patient here was slightly tachycardic initially but not persistently in the department O2 sat has been appropriate overall no other signs consistent with sepsis. Because patient is higher risk for decompensation sepsis labs were ordered. Patient's labs show white count of 10, hemoglobin of 14.3 platelets of 163 predominance of neutrophils. Chemistries show sodium 145 potassium of 4 chloride of 111 CO2 of 23 BUN 16 creatinine 0.34 glucose is 74 lactate 0.8, LFTs are negative troponin less than 0.12, BNP is 369 with a procalcitonin of 0.16 Respiratory panel is positive for entero/rhinovirus. Chest x-ray shows pneumonia. Spoke with Dr. Quintanilla, hospitalist patient's high-risk for further decompensation she is requiring 2 L currently to maintain at 94%. She otherwise appears well, blood pressure is running a little bit low but she ran low last visit as well. Plan to monitor for several more hours if no significant decompensation we will keep here if further worsening we will plan for transfer. He does ask for a VBG to evaluate CO2 level as well as D-dimer and we will cover with community-acquired antibiotics including azithromycin and Rocephin. Discussed with patient and family they are agreeable to this patient is full code and they would like for intubation if needed. CT angio shows left consolidation but no PE. This was ordered as dimer was elevated. VBG shows a pH of 7 3, pCO2 of 51 PaO2 of 46, bicarb was 25. Patient so far has continued to be about 90s for heart rate, blood pressures been fairly stable in the 110s after a L bolus. We will continue with maintenance fluids. O2 has been 92-94%% on [address] Quintanilla accepts for observation. Plan to continue with fluids IV antibiotics and close monitoring as patient is high-risk for decompensation. Discharge Plan Departure Patient Disposition: Admitted as Observation Clinical Impression: Enterovirus infection, Pneumonia, Acute hypoxemic respiratory failure Admit Date/Time: 07/18/23 15:33 Admit Provider: Jose Juan Quintanilla
--- NOTE | 2023-07-18 10:10 | DI.RAD.S_ITS ---
PROCEDURE: XR CHEST 1V INDICATIONS: cough, hoarseness, hx myotonic dystrophy TECHNIQUE: One view of the chest was acquired. COMPARISON: [facility], CR, XR CHEST 1V, 08/20/2021, 21:29. FINDINGS: Surgical changes and devices: None. Lungs and pleura: Focal opacity in the left lung base. No pleural effusions or pneumothorax. Mediastinum: Mediastinal contours appear normal. Heart size is normal. Bones and chest wall: No suspicious bony lesions. Overlying soft tissues appear unremarkable. IMPRESSION: Left basilar atelectasis or pneumonia. Dictated by: Hilary Erwin MD, PhD on 07/18/2023 at 11:48 Approved by: Hilary Erwin MD, PhD on 07/18/2023 at 11:48
[2023-07-18 11:26] LABS: Add Manual Diff / Slide Review NO; Basophils Absolute Auto 0 /uL (0-100); Basophils Percent Auto 0.2 % (0-2); Eosinophils Absolute Auto 0 /uL (0-450); Eosinophils Percent Auto 0.2 % (2-4); Hematocrit 43.1 % (36-46); Hemoglobin 14.3 g/dL (12.0-16.0); Lymphocytes Absolute Auto 700 /uL (1100-4500); Lymphocytes Percent Auto 7.2 % (25-40); Mean Corpuscular HGB Conc 33.2 % (30-36); Mean Corpuscular Hemoglobin 32.4 PG (26-34); Mean Corpuscular Volume 97.5 fL (80-100); Monocytes Absolute Auto 600 /uL (0-900); Monocytes Percent Auto 6.1 % (3-14); Neutrophils Absolute Auto 8700 /uL (1500-7000); Neutrophils Percent Auto 86.3 % (50-75); Platelet Count 163 X10^3/uL (150-400); Red Blood Cell Count 4.42 X10^6/uL (4.0-5.2); Red Cell Distribution Width 14.1 % (11.6-14.8)
[2023-07-18 11:28] LABS: Adenovirus Not Detected (Not Detect); B. parapertussis Not Detected (Not Detecte); Bordetella pertussis Not Detected (Not Detect); Chlamydophila pneumoniae Not Detected (Not Detect); Coronavirus 229E Not Detected (Not Detect); Coronavirus HKU1 Not Detected (Not Detect); Coronavirus NL 63 Not Detected (Not Detect); Coronavirus OC43 Not Detected (Not Detect); Human Metapneumovirus Not Detected (Not Detect); Human Rhinovirus/Enterovirus Detected (Not Detect); Influenza A Not Detected (Not Detect); Influenza B Not Detected (Not Detect); Mycoplasma pneumoniae Not Detected (Not Detect); Parainfluenza Virus 1 Not Detected (Not Detect); Parainfluenza Virus 2 Not Detected (Not Detect); Parainfluenza Virus 3 Not Detected (Not Detect); Parainfluenza Virus 4 Not Detected (Not Detect); Respiratory Syncytial Virus Not Detected (Not Detect); SARS- CoV-2 Not Detected (Not Detecte)
[2023-07-18 11:37] LABS: Lactate (Lactic Acid) 0.8 mmol/L (0.7-2.1)
[2023-07-18 11:39] LABS: Alanine Aminotransferase 25 IU/L (<35); Albumin 4.4 g/dL (3.5-5.0); Albumin Globulin Ratio 1.3 (1.0-2.8); Alkaline Phosphatase 80 U/L (38-126); Aspartate Aminotransferase 31 IU/L (14-36); BUN Creatinine Ratio 47.1 (6-22); Blood Urea Nitrogen 16 mg/dL (7-17); Calcium 8.9 mg/dL (8.4-10.2); Carbon Dioxide 23 mmol/L (22-32); Chloride 111 mmol/L (98-107); Estimated Glomerular Filt Rate > 60 mL/min (>60); Globulin 3.3 g/dL (1.7-4.1); Glucose 74 mg/dL (70-100); HEMOLYSIS < 15 (0-50); Sodium 145 mmol/L (137-145); Total Protein 7.7 g/dL (6.3-8.2)
[2023-07-18 11:56] LABS: Procalcitonin 0.16 ng/mL (<0.5)
[2023-07-18 12:00] LABS: Creatine Kinase 91 U/L (30-135)
[2023-07-18 12:12] LABS: NT-proBNP (BNP-Adult 18+) 369 pg/mL (<125); Troponin I < 0.012 ng/mL (0.01-0.034)
[2023-07-18 12:35] LABS: D Dimer 627 ng/ml (<500)
[2023-07-18] MEDS: cefTRIAXone 1,000 MG in SODIUM CHLORIDE 0.9% 100 ML 200 MG IV (12:41)
[2023-07-18] MEDS: SODIUM CHLORIDE 0.9% 1,000 ML 1000 ML IV (12:45)
[2023-07-18 12:50] LABS: Fractionated Inspired Oxygen 21; HCO3 VBG 25 mmol/L (24-28); Oxygen Saturation VBG 76 % (70-75); PCO2 VBG 51.4 mmHg (45-50); PO2 VBG 46 mmHg (35-45); Total CO2 VBG 27 mmol/L (24-29)
--- NOTE | 2023-07-18 13:01 | DI.CT.S_ITS ---
PROCEDURE: CT ANGIO CHEST PE PROTOCOL INDICATIONS: hypoxia, myotonic dystrophy, elevated dimer TECHNIQUE: After the administration of intravenous contrast, 2 mm thick sections acquired from the pulmonary apices to the posterior costophrenic angles. 3-dimensional maximum intensity projection (MIP) coronal and sagittal reformats were then acquired through the thorax. For radiation dose reduction, the following was used: automated exposure control, adjustment of mA and/or kV according to patient size. COMPARISON: [facility], CT, CT ANGIO CHEST PE PROTOCOL, 08/20/2021, 18:31. FINDINGS: Image quality: Diagnostic. Pulmonary arteries: Pulmonary arteries are normal in size, and demonstrate no intraluminal filling defects to suggest central pulmonary embolism. Lower Neck: No enlarged lymph nodes. Thyroid: No thyroid nodules which require sonographic follow up, per consensus guidelines. Axillae: No enlarged lymph nodes. Chest Wall: Unremarkable. Bones: Unremarkable. Lungs and Pleura: Patchy and consolidative opacity is present in the left base. Is noted in 2021, there is significant opacification of the entire left hemithorax as well as right base. Heart: Heart size is normal. No pericardial effusion. Thoracic Vessels: No aortic aneurysm. Mediastinum and Ashlie: No enlarged lymph nodes. Esophagus: No wall thickening. No hiatal hernia. Upper Abdomen: Visualized upper abdomen solid organs and bowel loops appear normal. IMPRESSION: No pulmonary embolus. Patchy and consolidative opacity in the left base suggestive of pneumonia. Recommend interval follow-up to document resolution. Dictated by: Tamra Campo M.D. on 07/18/2023 at 14:37 Approved by: Tamra Campo M.D. on 07/18/2023 at 14:39
[2023-07-18] MEDS: AZITHROMYCIN 500 MG in DEXTROSE 5% IN WATER 250 ML 250 MG IV (13:33)
[2023-07-18] MEDS: SODIUM CHLORIDE 0.9% 1,000 ML 150 ML IV (15:32)
--- NOTE | 2023-07-18 20:59 | P.HP_ITS ---
History of Present Illness History of Present Illness Date Patient Seen: 07/18/23 Time Patient Seen: 19:30 Chief complaint: loss of apetite, loosing her voice Narrative: This is a 33 year old female with PMH of muscular dystrophy, prior intubation for what appeared to be respiratory failure in the setting of mucous plugging and COVID 19 approx. 2 years ago, who presented with malaise, suppressed appetite, and sore throat. Patient's family checked her oxygen which was noted to be in the mid 80s at home. She was brought to the ER at that time. She has had productive cough and hoarse voice, denies fever, chills abdominal pain, chest pain, nausea, vomiting, diarrhea, lower extremity edema. In the ER, patient positive for rhinovirus. Given previous decompensation during a prior visit, patient was monitored for a couple of hours without notable change. She remained on a few L of O2 to keep O2 saturations above 90%. D-dimer was 627, CTA negative for PE but does show an infiltrate consistent with pneumonia. VBG showed a pH of 7.30, PCO2 of 51. She was admitted for acute respiratory failure secondary to viral and probable superimposed bacterial PNA. [facility] Medical History Muscular dystrophy Surgical History S/P bronchoscopy Social History Smoking Status: Never smoker alcohol intake: never Meds Home Medications and Allergies Home Medications Medication Instructions Recorded Confirmed Type No Known Home Medications 07/18/23 07/18/23 History Allergies Allergy/AdvReac Type Severity Reaction Status Date / Time No Known Drug Allergies Allergy Verified 07/18/23 09:38 Review of Systems Review of Systems Narrative: All other systems reviewed with the patient and are negative unless otherwise stated. Exam Vital Signs (past 8 hours): - 07/18/23 13:00 07/18/23 13:00 07/18/23 13:30 Temperature Pulse Rate 100 H 100 H Respiratory Rate 28 H 32 H Blood Pressure 112/67 Pulse Oximetry 93 95 Oxygen Delivery Method Oxygen Flow Rate 07/18/23 13:30 07/18/23 13:52 07/18/23 13:52 Temperature Pulse Rate 99 H Respiratory Rate 29 H Blood Pressure 109/68 110/68 Pulse Oximetry 95 Oxygen Delivery Method Oxygen Flow Rate 07/18/23 14:00 07/18/23 14:00 07/18/23 14:10 Temperature 99.0 F Pulse Rate 100 H Respiratory Rate 30 H Blood Pressure 106/64 Pulse Oximetry 96 Oxygen Delivery Method Oxygen Flow Rate 07/18/23 14:30 07/18/23 14:30 07/18/23 15:00 Temperature Pulse Rate 102 H 99 H Respiratory Rate 25 H 24 Blood Pressure 107/68 Pulse Oximetry 93 92 Oxygen Delivery Method Oxygen Flow Rate 07/18/23 15:00 07/18/23 15:30 07/18/23 15:30 Temperature Pulse Rate 97 H Respiratory Rate 28 H Blood Pressure 114/61 101/61 Pulse Oximetry 93 Oxygen Delivery Method Oxygen Flow Rate 07/18/23 15:37 07/18/23 16:00 07/18/23 16:00 Temperature 99.5 F Pulse Rate 97 H Respiratory Rate 28 H Blood Pressure 91/56 L Pulse Oximetry 91 Oxygen Delivery Method Oxygen Flow Rate 07/18/23 16:04 07/18/23 16:04 07/18/23 16:06 Temperature Pulse Rate 96 H 97 H Respiratory Rate 27 H 29 H Blood Pressure 94/57 L Pulse Oximetry 93 91 Oxygen Delivery Method Oxygen Flow Rate 07/18/23 16:06 07/18/23 16:18 07/18/23 16:18 Temperature Pulse Rate 99 H Respiratory Rate Blood Pressure 94/54 L 98/62 Pulse Oximetry 92 Oxygen Delivery Method Oxygen Flow Rate 07/18/23 16:23 07/18/23 16:30 07/18/23 16:30 Temperature 97.6 F Pulse Rate 98 H Respiratory Rate Blood Pressure Pulse Oximetry 86 L Oxygen Delivery Method Nasal Cannula Oxygen Flow Rate 07/18/23 16:45 07/18/23 17:00 07/18/23 17:30 Temperature Pulse Rate 94 H 93 H Respiratory Rate Blood Pressure Pulse Oximetry 96 87 L 92 Oxygen Delivery Method Nasal Cannula Oxygen Flow Rate 3.5 07/18/23 18:00 07/18/23 18:30 07/18/23 20:00 Temperature 97.5 F L Pulse Rate 91 H 99 H 89 Respiratory Rate 17 Blood Pressure 103/65 Pulse Oximetry 92 88 L 95 Oxygen Delivery Method Oxygen Flow Rate 2 Oxygen Delivery Method Nasal Cannula Oxygen Flow Rate 2 Narrative Exam Narrative: Gen: well appearing female, no acute distress ENT: poor dentition, MMM CV: RRR no m/r/g Pulm: CTA b/l Abd: S NT ND Ext: no edema Neuro: alert and oriented, no focal deficits, wheelchair bound at baseline mentation and functional status per family. Objective Labs 07/18/23 11:00 07/18/23 11:00 Labs: Laboratory Results - last 24 hr 07/18/23 07/18/23 07/18/23 10:26 11:00 12:42 WBC 10.0 RBC 4.42 Hgb 14.3 Hct 43.1 MCV 97.5 MCH 32.4 MCHC 33.2 RDW 14.1 Plt Count 163 Neut % (Auto) 86.3 H Lymph % (Auto) 7.2 L [place] % (Auto) 6.1 Eos % (Auto) 0.2 L Baso % (Auto) 0.2 Neut # (Auto) 8700 H Lymph # (Auto) 700 L [place] # (Auto) 600 Eos # (Auto) 0 Baso # (Auto) 0 D-Dimer 627 H VBG pH 7.30 L VBG pCO2 51.4 H VBG pO2 46 H VBG HCO3 25 VBG Total CO2 27 VBG O2 Saturation 76 H VBG Base Excess -1.0 L FiO2 21 Sodium 145 Potassium 4.0 Chloride 111 H Carbon Dioxide 23 BUN 16 Creatinine 0.34 L Estimated GFR > 60 BUN/Creatinine Ratio 47.1 H Glucose 74 Lactate 0.8 Calcium 8.9 Total Bilirubin 1.0 AST 31 ALT 25 Alkaline Phosphatase 80 Total Creatine Kinase 91 Troponin I < 0.012 NT-Pro-B Natriuret Pep 369 H Total Protein 7.7 Albumin 4.4 Globulin 3.3 Albumin/Globulin Ratio 1.3 Procalcitonin 0.16 Chlamy pneumoniae PCR Not detected Adenovirus (PCR) Not detected B.parapertussis DNA PCR Not detected Coronavirus OC43 (PCR) Not detected Coronavirus HKU1 (PCR) Not detected Coronavirus 229E (PCR) Not detected SARS-CoV-2 (PCR) Not detected Coronavirus NL63 (PCR) Not detected Human Metapneumovir PCR Not detected Influenza Type A (PCR) Not detected Influenza Type B (PCR) Not detected M. pneumoniae (PCR) Not detected Parainfluenza 1 (PCR) Not detected Parainfluenza 2 (PCR) Not detected Parainfluenza 3 (PCR) Not detected Parainfluenza 4 (PCR) Not detected RSV (PCR) Not detected Entero/Rhino (PCR) Detected H Assessment & Plan Assessment & Plan narrative: 1. Acute hypoxemic and hypercapnic respiratory failure due to rhinovirus and presumed superimposed bacterial pneumonia, present on admission - continue ceftriaxone and azithromycin - repeat blood gas in the AM to monitor hypercapnea with her history of muscular dystrophy. - CTA negative for PE - robitussin liquid to help with secrections. Respiratory therapy eval, consider chest PT given prior history of mucous plugging. - goal O2 89%-96%, closer to 90% while on supplemental therapy given elevated PCO2 on admission. Code: Full, surrogate is patient's mother DVT: Lovenox daily I have utilized all available immediate resources to obtain, update, or review the patient's current medications. Dispo: patient admitted under observation status, depending on need for continued oxygen consider inpatient. Additional history obtained via discussions with the ER provider. These discussions contributed to the creation of the above assessment and plan. I have reviewed patient's presenting documentation, labs, and imaging personally.
[2023-07-19] VITALS (45 sets, daily range): BP systolic 98–129; BP diastolic 58–71; PULSE 92–112; RESP 22–51; TEMP 36.6–37.1; O2SAT 86–96
[2023-07-19 00:46] LABS: MRSA (Nasal) PCR NOT DETECTED (Not Detect)
--- NOTE | 2023-07-19 02:08 | PC.NURSE ---
Patient PIV infiltrated and was removed at 1999. Dr. Quintanilla verbal okay for line to be out for the night, for patient comfort. Around 0000 patient started requiring increasing amounts of oxygen. RN tried to start PIV with ultrasound in anticipation of an emergency, but was not successful. MD notified and got a verbal order for a PICC line. DPOAs (parents) of the patient are opposed to a PICC line and state that they will reevaluate in the AM with the day doctor. Patients family verbalizes understanding of the importance of IV access and that in the event of an emergency, the only option will be an IO. MD made aware of patients DPOAs decision. Patient remains without IV access.
--- NOTE | 2023-07-19 07:58 | PC.NURSE ---
Day shift: Pt refused heparin shot this AM. Explained it's use but still refused. Pt states I just want to go home.
--- NOTE | 2023-07-19 09:13 | DI.RAD.S_ITS ---
PROCEDURE: XR CHEST 1V INDICATIONS: worsening hypoxia, PNA TECHNIQUE: One view of the chest was acquired. COMPARISON: [facility], CR, XR CHEST 1V, 07/18/2023, 11:14. [facility], CR, XR CHEST 1V, 08/20/2021, 21:29. FINDINGS: Surgical changes and devices: None. Lungs and pleura: Increased left mid and lower lung, and right lower lung opacities. Suspect small left pleural effusion as well. Mediastinum: Heart size is at the upper limit of normal. Bones and chest wall: Unremarkable IMPRESSION: Increased opacities in the left mid and lower lung, and right lower lung, suspicious for infection. Small left effusion. Consider future imaging surveillance to assess for resolution. Dictated by: Jose Houser M.D. on 07/19/2023 at 9:36 Approved by: Jose Houser M.D. on 07/19/2023 at 9:37
[2023-07-19 09:41] LABS: PO2 ABG 61 mmHg (80-100); pH ABG 7.27 (7.35-7.45)
[2023-07-19 09:42] LABS: HCO3 ABG 16 mmol/L (23-27); Oxygen Saturation ABG 88 % (95-100); TCO2 ABG 16 mmol/L (23-27)
[2023-07-19 09:44] LABS: Allen Test for ABG Passed? Yes, Passed; Blood Gas Collection Site Right Radial; Fractionated Inspired Oxygen 64
--- NOTE | 2023-07-19 10:33 | P.TELICUCN_ITS ---
History of Present Illness Consult details IF CAMERA ACTIVATED, patient seen via real-time interactive audiovisual communication: Camera activated Date Patient Seen: 07/19/23 Chief complaint: loss of apetite, loosing her voice Reason for consult: PNA Consent obtained for tele-cue worker care: Yes Patient Location: ICU Provider location (State): [place] Other participants/roles: patient, parents, MDR rounds team Narrative: 33 yo F with muscular dystrophy admitted for PNA. Resp viral panel + for rhino/entero virus being treated for superimposed bacterial PNA chest CT neg for PE but did show PNA patient has difficult time managing secretions given weakness. Was intubated in past for mucous plugging when she had covid infection She is currently on 9 L NC O2 and sat is 94% She is on ceftriaxone and azithromycin No pressors SHe lost IV access and is awaiting replacement of her midline IV PFSH Medical History Muscular dystrophy Surgical History S/P bronchoscopy Social History Smoking Status: Never smoker alcohol intake: never Current Medications Current Medications Medications: Home Medications No Known Home Medications 07/18/23 [History Confirmed 07/18/23] Visit Medications (administered) Generic Name Dose Route Start Last Admin Trade Name Freq PRN Reason Stop Dose Admin Enoxaparin Sodium 40 mg 07/19/23 09:00 07/19/23 07:57 Enoxaparin 40 Mg/0.4 Ml Syringe SUBCUT Not Given DAILY PRISCILLA Exam Vital Signs (past 8 hours): - 07/19/23 03:00 07/19/23 03:30 07/19/23 03:59 Temperature Pulse Rate 98 H 101 H Respiratory Rate Blood Pressure 107/63 Pulse Oximetry 95 95 Oxygen Delivery Method Oxygen Flow Rate 11 11 07/19/23 03:59 07/19/23 04:00 07/19/23 04:00 Temperature 98.6 F Pulse Rate 99 H 102 H Respiratory Rate 30 H Blood Pressure 101/63 Pulse Oximetry 91 91 89 L Oxygen Delivery Method High Flow Nasal Cannula Oxygen Flow Rate 11 11 11 07/19/23 04:00 07/19/23 04:30 07/19/23 05:00 Temperature Pulse Rate 102 H 92 H 96 H Respiratory Rate Blood Pressure Pulse Oximetry 89 L 93 93 Oxygen Delivery Method Oxygen Flow Rate 11 11 11 07/19/23 05:30 07/19/23 06:00 07/19/23 06:00 Temperature Pulse Rate 93 H 104 H 104 H Respiratory Rate 28 H Blood Pressure Pulse Oximetry 92 94 94 Oxygen Delivery Method Oxygen Flow Rate 11 11 07/19/23 06:30 07/19/23 07:00 07/19/23 07:30 Temperature Pulse Rate 105 H 97 H 103 H Respiratory Rate Blood Pressure Pulse Oximetry 93 90 L 92 Oxygen Delivery Method Oxygen Flow Rate 07/19/23 07:40 07/19/23 07:40 07/19/23 08:00 Temperature Pulse Rate 102 H 100 H Respiratory Rate Blood Pressure 110/67 Pulse Oximetry 91 90 L Oxygen Delivery Method Oxygen Flow Rate 07/19/23 08:20 07/19/23 08:20 07/19/23 08:30 Temperature Pulse Rate 101 H Respiratory Rate Blood Pressure Pulse Oximetry 90 L 90 L Oxygen Delivery Method High Flow Nasal Cannula High Flow Nasal Cannula Oxygen Flow Rate 9 07/19/23 08:59 07/19/23 09:00 07/19/23 09:30 Temperature Pulse Rate 105 H 97 H Respiratory Rate Blood Pressure Pulse Oximetry 89 L 90 L Oxygen Delivery Method High Flow Nasal Cannula Oxygen Flow Rate 07/19/23 10:00 07/19/23 10:02 07/19/23 10:02 Temperature 97.8 F Pulse Rate 98 H 97 H Respiratory Rate 47 H Blood Pressure 105/65 Pulse Oximetry 93 92 Oxygen Delivery Method Oxygen Flow Rate Oxygen Delivery Method High Flow Nasal Cannula Oxygen Flow Rate 9 Narrative Exam Narrative: sitting in bed. coughing. wearing NC, no distress Objective Imaging Chest x-ray: Radiologist's impression: multifocal opacities concerning for infection Labs 07/18/23 11:00 07/18/23 11:00 Labs: Laboratory Results - last 24 hr 07/18/23 07/18/23 07/18/23 10:26 11:00 12:42 WBC 10.0 RBC 4.42 Hgb 14.3 Hct 43.1 MCV 97.5 MCH 32.4 MCHC 33.2 RDW 14.1 Plt Count 163 Neut % (Auto) 86.3 H Lymph % (Auto) 7.2 L [place] % (Auto) 6.1 Eos % (Auto) 0.2 L Baso % (Auto) 0.2 Neut # (Auto) 8700 H Lymph # (Auto) 700 L [place] # (Auto) 600 Eos # (Auto) 0 Baso # (Auto) 0 D-Dimer 627 H ABG Sample Site ABG pH ABG pCO2 ABG pO2 ABG HCO3 ABG Total CO2 ABG O2 Saturation ABG Base Excess VBG pH 7.30 L VBG pCO2 51.4 H VBG pO2 46 H VBG HCO3 25 VBG Total CO2 27 VBG O2 Saturation 76 H VBG Base Excess -1.0 L FiO2 21 Sodium 145 Potassium 4.0 Chloride 111 H Carbon Dioxide 23 BUN 16 Creatinine 0.34 L Estimated GFR > 60 BUN/Creatinine Ratio 47.1 H Glucose 74 Lactate 0.8 Calcium 8.9 Total Bilirubin 1.0 AST 31 ALT 25 Alkaline Phosphatase 80 Total Creatine Kinase 91 Troponin I < 0.012 NT-Pro-B Natriuret Pep 369 H Total Protein 7.7 Albumin 4.4 Globulin 3.3 Albumin/Globulin Ratio 1.3 Procalcitonin 0.16 Nasal Screen MRSA (PCR) Chlamy pneumoniae PCR Not detected Adenovirus (PCR) Not detected B.parapertussis DNA PCR Not detected Coronavirus OC43 (PCR) Not detected Coronavirus HKU1 (PCR) Not detected Coronavirus 229E (PCR) Not detected SARS-CoV-2 (PCR) Not detected Coronavirus NL63 (PCR) Not detected Human Metapneumovir PCR Not detected Influenza Type A (PCR) Not detected Influenza Type B (PCR) Not detected M. pneumoniae (PCR) Not detected Parainfluenza 1 (PCR) Not detected Parainfluenza 2 (PCR) Not detected Parainfluenza 3 (PCR) Not detected Parainfluenza 4 (PCR) Not detected RSV (PCR) Not detected Entero/Rhino (PCR) Detected H 07/18/23 07/19/23 22:14 09:21 WBC RBC Hgb Hct MCV MCH MCHC RDW Plt Count Neut % (Auto) Lymph % (Auto) [place] % (Auto) Eos % (Auto) Baso % (Auto) Neut # (Auto) Lymph # (Auto) [place] # (Auto) Eos # (Auto) Baso # (Auto) D-Dimer ABG Sample Site Right radial ABG pH 7.27 L* ABG pCO2 33.0 L ABG pO2 61 L ABG HCO3 16 L ABG Total CO2 16 L ABG O2 Saturation 88 L ABG Base Excess -11.0 L VBG pH VBG pCO2 VBG pO2 VBG HCO3 VBG Total CO2 VBG O2 Saturation VBG Base Excess FiO2 64 Sodium Potassium Chloride Carbon Dioxide BUN Creatinine Estimated GFR BUN/Creatinine Ratio Glucose Lactate Calcium Total Bilirubin AST ALT Alkaline Phosphatase Total Creatine Kinase Troponin I NT-Pro-B Natriuret Pep Total Protein Albumin Globulin Albumin/Globulin Ratio Procalcitonin Nasal Screen MRSA (PCR) Not detected Chlamy pneumoniae PCR Adenovirus (PCR) B.parapertussis DNA PCR Coronavirus OC43 (PCR) Coronavirus HKU1 (PCR) Coronavirus 229E (PCR) SARS-CoV-2 (PCR) Coronavirus NL63 (PCR) Human Metapneumovir PCR Influenza Type A (PCR) Influenza Type B (PCR) M. pneumoniae (PCR) Parainfluenza 1 (PCR) Parainfluenza 2 (PCR) Parainfluenza 3 (PCR) Parainfluenza 4 (PCR) RSV (PCR) Entero/Rhino (PCR) Assessment & Plan Assessment and plan (1) Acute hypoxemic respiratory failure: Status: Acute (2) Pneumonia: Status: Acute (3) Enterovirus infection: Status: Acute Assessment & Plan narrative: 33 yo F with muscular dystropy presenting with pneumonia, viral and concern for superimposed bacterial infection Doing well so far on 9L NC o2 does have weak cough and is at risk for mucous plugging trend ABG would be proactive with pulmonary toilet vibratory vest q 4 hours, with cough assist can do manual percussion, right and left sides to help mobilize secretions She has required bronch before so may consult pulmonolgy in case bronch would be needed to avoid intubation Encourgae PO fluids to thin secretions and mobilize as able, OOB to chair ,incentive spirometer if able to do Continue CAP coverage restart iv meds once new midline placed DVT ppx Time Spent With Patient Time with patient: 30 to 49 minutes with 50% spent counseling/coordinating care
--- NOTE | 2023-07-19 10:58 | PC.NURSE ---
Day shift: Per DAKOTA RN Taci waiting on IV placement (PICC vs. Midline) as Dr Pereira to talk with Pt and family about best IV access. Pt remians with no IV access at this time (1100). RT in room and giving a percussive vest treatment to Pt. She is tolerating the vest at this time. Will encourage PT to increase water intake. Dr Pereira contacting pulmonology for a consult. Family at bedside for support. Call light in reach and bed alarm is on.
[2023-07-19] MEDS: cefTRIAXone 1,000 MG in SODIUM CHLORIDE 0.9% 100 ML 200 MG IV (12:04)
--- NOTE | 2023-07-19 12:15 | DI.RAD.S_ITS ---
PROCEDURE: XR CHEST FOR PICC 1V INDICATIONS: line placement COMPARISON: [facility], GABRIEL, XR CHEST 1V, 07/19/2023, 9:17. [facility], CR, XR CHEST 1V, 07/18/2023, 11:14. FINDINGS: PICC was placed by the intravenous therapy team from the left side. Fluoroscopic spot film demonstrates the tip of PICC projecting to the area of distal SVC. IMPRESSION: Tip of PICC projects to the area of distal SVC. No change from abnormal opacification at the left mid and lower lung with elevation of the left hemidiaphragm. Dictated by: Vaughn Zhang M.D. on 07/19/2023 at 13:03 Approved by: Vaughn Zhang M.D. on 07/19/2023 at 13:04
[2023-07-19 12:53] LABS: Add Manual Diff / Slide Review NO; Basophils Absolute Auto 0 /uL (0-100); Basophils Percent Auto 0.2 % (0-2); Eosinophils Absolute Auto 0 /uL (0-450); Hematocrit 41.4 % (36-46); Hemoglobin 13.5 g/dL (12.0-16.0); Lymphocytes Absolute Auto 500 /uL (1100-4500); Lymphocytes Percent Auto 3.9 % (25-40); Mean Corpuscular HGB Conc 32.5 % (30-36); Mean Corpuscular Hemoglobin 31.7 PG (26-34); Mean Corpuscular Volume 97.4 fL (80-100); Monocytes Absolute Auto 900 /uL (0-900); Monocytes Percent Auto 6.4 % (3-14); Neutrophils Absolute Auto 11900 /uL (1500-7000); Neutrophils Percent Auto 89.5 % (50-75); Platelet Count 185 X10^3/uL (150-400); Red Blood Cell Count 4.25 X10^6/uL (4.0-5.2); Red Cell Distribution Width 14.3 % (11.6-14.8); White Blood Cell Count 13.3 X10^3/uL (4.5-11.0)
[2023-07-19 13:07] LABS: Magnesium 2.1 mg/dL (1.6-2.3)
[2023-07-19 13:08] LABS: BUN Creatinine Ratio 24.2 (6-22); Blood Urea Nitrogen 8 mg/dL (7-17); Calcium 8.6 mg/dL (8.4-10.2); Carbon Dioxide 17 mmol/L (22-32); Chloride 116 mmol/L (98-107); Estimated Glomerular Filt Rate > 60 mL/min (>60); Glucose 85 mg/dL (70-100); HEMOLYSIS 17 (0-50); Lactate (Lactic Acid) 0.7 mmol/L (0.7-2.1); Potassium 3.6 mmol/L (3.4-5.1); Sodium 144 mmol/L (137-145)
[2023-07-19] MEDS: AZITHROMYCIN 500 MG in DEXTROSE 5% IN WATER 250 ML 250 MG IV (13:20)
[2023-07-19 13:24] LABS: Procalcitonin 0.16 ng/mL (<0.5)
--- NOTE | 2023-07-19 13:30 | CM.DANOTE ---
Patient is a 33 yo female who was admitted INPT status on 07/18/23 for Rhinovirus and Pneumonia. Pt has [facility] for insurance and her PCP is Jennifer Bustillos. EMR was reviewed. Per MD, pt with hx of muscular dystrophy and Developmental delay and hx of intubation for COVID in 2021 and admitted for oxygen needs as currently on 11LO2 and IV-Abx. Per RN, pt was able to pivot transfer and now oxygen is down to 9LO2. SW met bedside with pt who was sleeping soundly and her parents Bettie and Ruben and explained role. They confirm that pt lives with them in [place] and is now mostly w/c bound and non-ambulatory and has a manual and power w/c at home and is able to self transfer at baseline. Pt manages her own ADLs mostly (feeds herself, brushes her own teeth, brushes her hair, manages power w/c herself) but her fine motor skills have not been quite as strong. Pt has no hx of HH or SNF but was in [facility] for a month when she was COVID+ 2 years ago and they did not set up HH at d/c. Pt's mother also has myodystrophy (specific muscular dysptrophy) and it runs on her side of the family. Parent's are pt's primary CGs and they are in the process of working with pt's assigned [facility] for mother to be pt's JULIA CG and get some reimbursement for the care they have provided to patient for years. Parents confirm that pt's cognitive/emotional developments have remained at around a 16 yo cognition. They still take pt on vacations and pt has been involved in rastafari activities regularly and also a Program that helped get her involved in volunteering/employment. Parents very devoted to pt and dad works but mom stays home and no longer drives herself as her muscular dystrophy is starting to progress some. Parents anticipate pt discharge to home and are considering maybe an OT eval while in the hospital for fine motor skill needs to determine if pt would benefit from OT at discharge. Plan: SW to follow closely for possible OT eval and recommendations and pt to be weaned off the oxygen towards plan of discharge home with parent assist and r/o HH OT. LOREN Watts Discharge Planning/Care Management CM Discharge Assessment Start: 07/19/23 13:25 Freq: Status: Active Protocol: Document 07/19/23 13:25 BF (Rec: 07/19/23 13:30 BF [id number]) Discharge Planning Assessment Assigned Public Safety Officer LOREN Lau DPOA/Assigned Designee Name mom and dad Contact Information [phone] Advance Directives? No Advance Directives on File No History Provided By Patient,Family Member,Medical Record Has Patient been admitted in last 30 No days? Prior Living Arrangements House Household Members family Comment Lives with mom and dad Type of transporation used prior to Relies on Others admit Independent with ADL's No: non-ambulatory Is patient alert and oriented? No: developementally delayed at baseline Needs Assistance With Bathing,Meal Prep,Managing Medications,Home Chores / Shopping Caregiver for Another No DME Already Rented / Owned Bath Bench,Wheelchair Barriers to Discharge No Discharge Plan Home Transportation Arrangement Parents to provide transport if safe for home Additional Comment Pending progress and needs. Whiteboard Updated in Patient Room with Yes name and ext. # of Public Safety Officer Review Status In Process Please Provide Date Initial DC 07/19/23 Assessment Was Performed Next Review Type Continued Stay Review
[2023-07-19] MEDS: SODIUM CHLORIDE 0.9% FLUSH 10 ML IV (14:49)
--- NOTE | 2023-07-19 18:32 | PM.PN.1 ---
Subjective Subjective Interval history: Patient's hypoxia worsened overnight from 3 to 9L. PICC placed due to poor IV access. CXR shows worsened PNA, possibly due to not having IV access to give abx. Curbsided pulm who did not recommend bronch at this time and continuing aggressive pulm toilet and abx. Exam Vital Signs (past 8 hours): - 07/19/23 11:00 07/19/23 11:30 07/19/23 11:38 Temperature Pulse Rate 109 H 104 H Respiratory Rate 38 H Blood Pressure 124/64 Pulse Oximetry 92 94 Oxygen Delivery Method Oxygen Flow Rate 07/19/23 11:38 07/19/23 12:00 07/19/23 12:30 Temperature Pulse Rate 104 H 107 H 100 H Respiratory Rate 41 H 36 H 45 H Blood Pressure Pulse Oximetry 94 93 Oxygen Delivery Method Oxygen Flow Rate 07/19/23 12:45 07/19/23 12:45 07/19/23 12:46 Temperature Pulse Rate 97 H Respiratory Rate 46 H Blood Pressure 106/64 101/58 L Pulse Oximetry Oxygen Delivery Method Oxygen Flow Rate 07/19/23 12:46 07/19/23 13:00 07/19/23 13:00 Temperature 98.6 F Pulse Rate 96 H 97 H Respiratory Rate 47 H 46 H Blood Pressure 98/59 L Pulse Oximetry 93 Oxygen Delivery Method Oxygen Flow Rate 07/19/23 13:05 07/19/23 13:05 07/19/23 18:03 Temperature Pulse Rate Respiratory Rate Blood Pressure Pulse Oximetry 93 Oxygen Delivery Method High Flow Nasal Cannula High Flow Nasal Cannula High Flow Nasal Cannula Oxygen Flow Rate 9 07/19/23 18:03 Temperature Pulse Rate Respiratory Rate Blood Pressure Pulse Oximetry 96 Oxygen Delivery Method High Flow Nasal Cannula Oxygen Flow Rate Oxygen Delivery Method High Flow Nasal Cannula Oxygen Flow Rate 9 Narrative Exam Narrative: Gen: well appearing female, no acute distress ENT: poor dentition, MMM CV: RRR no m/r/g Pulm: CTA b/l Abd: S NT ND Ext: no edema Neuro: alert and oriented, no focal deficits, wheelchair bound at baseline mentation and functional status per family. Objective Labs 07/19/23 12:40 07/19/23 12:40 Labs: Laboratory Results - last 24 hr 07/18/23 07/19/23 07/19/23 22:14 09:21 12:40 WBC 13.3 H RBC 4.25 Hgb 13.5 Hct 41.4 MCV 97.4 MCH 31.7 MCHC 32.5 RDW 14.3 Plt Count 185 Neut % (Auto) 89.5 H Lymph % (Auto) 3.9 L [place] % (Auto) 6.4 Eos % (Auto) 0.0 L Baso % (Auto) 0.2 Neut # (Auto) 86670 H Lymph # (Auto) 500 L [place] # (Auto) 900 Eos # (Auto) 0 Baso # (Auto) 0 ABG Sample Site Right radial ABG pH 7.27 L* ABG pCO2 33.0 L ABG pO2 61 L ABG HCO3 16 L ABG Total CO2 16 L ABG O2 Saturation 88 L ABG Base Excess -11.0 L FiO2 64 Sodium 144 Potassium 3.6 Chloride 116 H Carbon Dioxide 17 L BUN 8 Creatinine 0.33 L Estimated GFR > 60 BUN/Creatinine Ratio 24.2 H Glucose 85 Lactate 0.7 Calcium 8.6 Magnesium 2.1 Procalcitonin 0.16 Nasal Screen MRSA (PCR) Not detected [facility] Medical History Muscular dystrophy Surgical History S/P bronchoscopy Social History household members: family Smoking Status: Never smoker alcohol intake: never Assessment & Plan Assessment & Plan narrative: 1. Acute hypoxemic and hypercapnic respiratory failure due to rhinovirus and presumed superimposed bacterial pneumonia, present on admission - continue ceftriaxone and azithromycin - now up to 9L NC - CTA negative for PE, shows L basilar PNA - robitussin liquid to help with secrections. Respiratory therapy eval for chest PT and mucomyst given prior history of mucous plugging. - goal O2 89%-96%, closer to 90% while on supplemental therapy given elevated PCO2 on admission. Code: Full, surrogate is patient's mother DVT: Lovenox daily I have utilized all available immediate resources to obtain, update, or review the patient's current medications. Dispo: ICU due to potential need for bronch and intubation Additional history obtained via discussions with the ER provider. These discussions contributed to the creation of the above assessment and plan. I have reviewed patient's presenting documentation, labs, and imaging personally.
--- NOTE | 2023-07-19 18:33 | PC.NURSE ---
Day shift: Pt with incontinent void at end of shift today. Not letting PCT do bed change at this time (183). Pt's Mother is talking with Pt now related to changing bed and putting brief in place.
--- NOTE | 2023-07-19 18:38 | PC.NURSE ---
Day shift: Sputum culture ordered at approx 1200 but Pt not able to produce any at this time (1830).
--- NOTE | 2023-07-19 20:22 | P.ICUMDRN_ITS ---
- Date Patient Seen: 07/19/23 :: This patient was seen via real time interactive two-way audiovisual telecommunic ation. Note: patient seen on evening rounds afebrile, HD stable, adequate urine output 89% on 9L NC -repeat labs including abg/lactate now -start high flow NC -start duonebs -start LR @100cc/hr -low threshold for intubation -please call eICU if condition changes
[2023-07-19] MEDS: LACTATED RINGERS 1,000 ML 100 ML IV (20:45)
[2023-07-19] MEDS: ALBUTEROL 2.5 MG/3 ML NEB (ADULT) INH (20:56)
[2023-07-19] MEDS: ACETYLCYSTEINE (PO/INH) 200 MG/ML VIAL 600 MG INH (20:56)
[2023-07-19 21:24] LABS: Add Manual Diff / Slide Review NO; Basophils Absolute Auto 0 /uL (0-100); Basophils Percent Auto 0.2 % (0-2); Eosinophils Absolute Auto 0 /uL (0-450); Eosinophils Percent Auto 0.1 % (2-4); Hematocrit 41.8 % (36-46); Hemoglobin 13.8 g/dL (12.0-16.0); Lymphocytes Absolute Auto 500 /uL (1100-4500); Lymphocytes Percent Auto 3.8 % (25-40); Mean Corpuscular HGB Conc 33.1 % (30-36); Mean Corpuscular Hemoglobin 32.2 PG (26-34); Mean Corpuscular Volume 97.3 fL (80-100); Monocytes Absolute Auto 800 /uL (0-900); Monocytes Percent Auto 6.3 % (3-14); Neutrophils Absolute Auto 11700 /uL (1500-7000); Neutrophils Percent Auto 89.6 % (50-75); Platelet Count 183 X10^3/uL (150-400); Red Cell Distribution Width 14.2 % (11.6-14.8)
[2023-07-19 21:37] LABS: Alanine Aminotransferase 19 IU/L (<35); Albumin 4.2 g/dL (3.5-5.0); Albumin Globulin Ratio 1.4 (1.0-2.8); Alkaline Phosphatase 76 U/L (38-126); Aspartate Aminotransferase 25 IU/L (14-36); BUN Creatinine Ratio 19.4 (6-22); Bilirubin Total 0.9 mg/dL (0.2-1.3); Blood Urea Nitrogen 6 mg/dL (7-17); Calcium 8.9 mg/dL (8.4-10.2); Carbon Dioxide 18 mmol/L (22-32); Chloride 115 mmol/L (98-107); Estimated Glomerular Filt Rate > 60 mL/min (>60); Globulin 3.1 g/dL (1.7-4.1); Glucose 96 mg/dL (70-100); HEMOLYSIS 19 (0-50); Lactate (Lactic Acid) 0.7 mmol/L (0.7-2.1); Potassium 3.3 mmol/L (3.4-5.1); Sodium 144 mmol/L (137-145); Total Protein 7.3 g/dL (6.3-8.2)
[2023-07-19 22:56] LABS: PCO2 ABG 42.6 mmHg (35-45); pH ABG 7.24 (7.35-7.45)
[2023-07-19 22:57] LABS: HCO3 ABG 18 mmol/L (23-27); PO2 ABG 50 mmHg (80-100); TCO2 ABG 20 mmol/L (23-27)
[2023-07-19 22:58] LABS: Allen Test for ABG Passed? Yes, Passed; Blood Gas Collection Site Right Radial; Oxygen Saturation ABG 78 % (95-100)
[2023-07-20] VITALS (75 sets, daily range): BP systolic 73–129; BP diastolic 38–78; PULSE 87–128; RESP 16–68; TEMP 36.9–37.3; O2SAT 80–100
[2023-07-20] MEDS: ALBUTEROL/IPRATROPIUM 3 ML AMPUL INH ×2 (00:43→14:47)
[2023-07-20 05:38] LABS: Add Manual Diff / Slide Review NO; Basophils Absolute Auto 0 /uL (0-100); Basophils Percent Auto 0.1 % (0-2); Eosinophils Absolute Auto 0 /uL (0-450); Hematocrit 42.5 % (36-46); Hemoglobin 13.9 g/dL (12.0-16.0); Lymphocytes Absolute Auto 300 /uL (1100-4500); Lymphocytes Percent Auto 1.7 % (25-40); Mean Corpuscular HGB Conc 32.8 % (30-36); Mean Corpuscular Hemoglobin 31.8 PG (26-34); Mean Corpuscular Volume 96.9 fL (80-100); Monocytes Absolute Auto 1100 /uL (0-900); Monocytes Percent Auto 7.2 % (3-14); Neutrophils Absolute Auto 13400 /uL (1500-7000); Platelet Count 182 X10^3/uL (150-400); Red Blood Cell Count 4.38 X10^6/uL (4.0-5.2); Red Cell Distribution Width 14.2 % (11.6-14.8); White Blood Cell Count 14.7 X10^3/uL (4.5-11.0)
[2023-07-20 05:58] LABS: BUN Creatinine Ratio 13.3 (6-22); Blood Urea Nitrogen 4 mg/dL (7-17); Calcium 9.1 mg/dL (8.4-10.2); Carbon Dioxide 15 mmol/L (22-32); Chloride 115 mmol/L (98-107); Estimated Glomerular Filt Rate > 60 mL/min (>60); Glucose 112 mg/dL (70-100); HEMOLYSIS 22 (0-50); Potassium 3.3 mmol/L (3.4-5.1); Sodium 143 mmol/L (137-145)
--- NOTE | 2023-07-20 06:08 | PC.NURSE ---
Patient currently on heated high flow nasal cannula 40L/95% Spo2 92%, no complaint of pain, denies SOB, parents at bedside.
[2023-07-20] MEDS: LACTATED RINGERS 1,000 ML 100 ML IV (06:24)
[2023-07-20] MEDS: ROCURONIUM 50 MG/5 ML INJ IV (09:30)
--- NOTE | 2023-07-20 09:33 | PM.PN.EICU ---
Subjective Subjective IF CAMERA ACTIVATED, patient seen via real-time interactive audiovisual communication: Camera activated Consent obtained for tele-blind hanger care: Yes Patient Location: ICU Provider location (State): Other participants/roles: , RN Interval history: 33 yo F with muscular dystrophy presenting with pneumonia, viral and concern for superimposed bacterial infection Today/ Overnight: Pt maxed onHFNC support , tacypnic with shallow breathing Assessment: Acute hypoxic resp failure 2/2 Viral PNA and concern for superimposed bacterial infection Sepsis 2/2 above HAGMA 2/2 sepsis / hypoxia ? lactic acid Plan: Mechanical ventilation/ anaestheia called for intubation, TV 6ml/ kg ideal body Wt 300 ml Sedation Propofol and fentaly Continue AB, F/U resp and blood cx 2 amps of bicarb CXR and ABG after intubation Dc IV fluid working on transfer to higher level of Care for possible needs for bronch given thick secretions GI & DVT ppx CCT 35 min Current Medications Current Medications Medications: Home Medications No Known Home Medications 07/18/23 [History Confirmed 07/18/23] Visit Medications (administered) Generic Name Dose Route Start Last Admin Trade Name Freq PRN Reason Stop Dose Admin Acetylcysteine 600 mg 07/19/23 18:40 07/19/23 20:56 Acetylcysteine (Po/Inh) 200 Mg/Ml Vial INH 600 mg DAILY PRISCILLA Administration Albuterol 2.5 mg 07/19/23 18:52 07/19/23 20:56 Albuterol 2.5 Mg/3 Ml Neb (Adult) INH 2.5 mg [id number] PRN Administration Bronchodilation Albuterol/Ipratropium 3 ml 07/19/23 23:00 07/20/23 00:43 Albuterol/Ipratropium 3 Ml Ampul INH 3 ml [id number] PRISCILLA Administration Enoxaparin Sodium 40 mg 07/19/23 09:00 07/19/23 07:57 Enoxaparin 40 Mg/0.4 Ml Syringe SUBCUT Not Given DAILY PRISCILLA Heparin Sodium (Porcine) 50 unit 07/19/23 14:29 07/19/23 14:49 Heparin Flush (Cl/Picc/Mid-Line) 50 Unit/5 Ml Syringe IV 50 unit PRN PRN Administration Flush Azithromycin 500 mg/ Dextrose 250 mls @ 250 mls/hr 07/19/23 13:00 07/19/23 14:26 IV 07/21/23 12:59 Infused Q24H PRISCILLA Infusion Lactated Ringer's 1,000 mls @ 100 mls/hr 07/19/23 20:30 07/20/23 06:24 Lactated Ringers IV 100 mls/hr CONT PRISCILLA Administration Sodium Chloride 10 ml 07/19/23 14:29 07/19/23 14:49 Sodium Chloride 0.9% Flush IV 10 ml PRN PRN Administration Flush Objective Ventilator Parameters: Ventilator Settings FiO2 100 Labs 07/20/23 05:15 07/20/23 05:15 Labs: Laboratory Results - last 24 hr 07/19/23 07/19/23 07/19/23 09:21 12:40 21:09 WBC 13.3 H 13.0 H RBC 4.25 4.30 Hgb 13.5 13.8 Hct 41.4 41.8 MCV 97.4 97.3 MCH 31.7 32.2 MCHC 32.5 33.1 RDW 14.3 14.2 Plt Count 185 183 Neut % (Auto) 89.5 H 89.6 H Lymph % (Auto) 3.9 L 3.8 L [place] % (Auto) 6.4 6.3 Eos % (Auto) 0.0 L 0.1 L Baso % (Auto) 0.2 0.2 Neut # (Auto) 48426 H 13470 H Lymph # (Auto) 500 L 500 L [place] # (Auto) 900 800 Eos # (Auto) 0 0 Baso # (Auto) 0 0 ABG Sample Site Right radial ABG pH 7.27 L* ABG pCO2 33.0 L ABG pO2 61 L ABG HCO3 16 L ABG Total CO2 16 L ABG O2 Saturation 88 L ABG Base Excess -11.0 L FiO2 64 Sodium 144 144 Potassium 3.6 3.3 L Chloride 116 H 115 H Carbon Dioxide 17 L 18 L BUN 8 6 L Creatinine 0.33 L 0.31 L Estimated GFR > 60 > 60 BUN/Creatinine Ratio 24.2 H 19.4 Glucose 85 96 Lactate 0.7 0.7 Calcium 8.6 8.9 Magnesium 2.1 Total Bilirubin 0.9 AST 25 ALT 19 Alkaline Phosphatase 76 Total Protein 7.3 Albumin 4.2 Globulin 3.1 Albumin/Globulin Ratio 1.4 Procalcitonin 0.16 07/19/23 07/20/23 21:12 05:15 WBC 14.7 H RBC 4.38 Hgb 13.9 Hct 42.5 MCV 96.9 MCH 31.8 MCHC 32.8 RDW 14.2 Plt Count 182 Neut % (Auto) 91.0 H Lymph % (Auto) 1.7 L [place] % (Auto) 7.2 Eos % (Auto) 0.0 L Baso % (Auto) 0.1 Neut # (Auto) 15903 H Lymph # (Auto) 300 L [place] # (Auto) 1100 H Eos # (Auto) 0 Baso # (Auto) 0 ABG Sample Site Right radial ABG pH 7.24 L* ABG pCO2 42.6 ABG pO2 50 L ABG HCO3 18 L ABG Total CO2 20 L ABG O2 Saturation 78 L* ABG Base Excess -9.0 L FiO2 Sodium 143 Potassium 3.3 L Chloride 115 H Carbon Dioxide 15 L BUN 4 L Creatinine 0.30 L Estimated GFR > 60 BUN/Creatinine Ratio 13.3 Glucose 112 H Lactate Calcium 9.1 Magnesium 2.0 Total Bilirubin AST ALT Alkaline Phosphatase Total Protein Albumin Globulin Albumin/Globulin Ratio Procalcitonin Exam Vital Signs (past 8 hours): - 07/20/23 02:00 07/20/23 02:00 07/20/23 02:00 Temperature Pulse Rate 110 H Respiratory Rate 51 H Blood Pressure 120/67 Pulse Oximetry 92 Oxygen Delivery Method High Flow Nasal Cannula Oxygen Flow Rate 07/20/23 02:00 07/20/23 03:00 07/20/23 03:00 Temperature Pulse Rate 128 H Respiratory Rate 51 H Blood Pressure 124/73 Pulse Oximetry 89 L 85 L Oxygen Delivery Method High Flow Nasal Cannula Oxygen Flow Rate 11 9 07/20/23 04:00 07/20/23 04:00 07/20/23 05:00 Temperature 99.1 F Pulse Rate 118 H Respiratory Rate 50 H Blood Pressure 125/72 112/67 Pulse Oximetry 85 L Oxygen Delivery Method Oxygen Flow Rate 9 07/20/23 05:00 07/20/23 05:30 07/20/23 06:00 Temperature Pulse Rate 111 H 109 H Respiratory Rate 57 H 40 H Blood Pressure Pulse Oximetry 87 L 88 L Oxygen Delivery Method Heated High Flow Oxygen Flow Rate 07/20/23 06:00 07/20/23 06:00 07/20/23 06:00 Temperature Pulse Rate 113 H Respiratory Rate 50 H Blood Pressure 118/65 Pulse Oximetry 93 92 Oxygen Delivery Method Heated High Flow Oxygen Flow Rate 40 40 07/20/23 07:00 07/20/23 07:00 07/20/23 08:00 Temperature 98.5 F Pulse Rate 112 H Respiratory Rate 54 H Blood Pressure 120/65 Pulse Oximetry 93 Oxygen Delivery Method Oxygen Flow Rate 07/20/23 08:00 07/20/23 08:00 07/20/23 08:24 Temperature 98.5 F Pulse Rate 114 H 112 H Respiratory Rate 60 H 61 H Blood Pressure 117/67 Pulse Oximetry 93 94 Oxygen Delivery Method Oxygen Flow Rate Oxygen Delivery Method Heated High Flow Oxygen Flow Rate 40
--- NOTE | 2023-07-20 10:01 | DI.RAD.S_ITS ---
PROCEDURE: XR CHEST 1V INDICATIONS: post intubation TECHNIQUE: One view of the chest was acquired. COMPARISON: [facility], CR, XR CHEST FOR PICC 1V, 07/19/2023, 12:19. FINDINGS: Surgical changes and devices: Endotracheal tube tip 2.1 cm above the beau. Left-sided PICC line and right IJ central venous line tip in the mid SVC Lungs and pleura: There is now complete opacification the left lung field, new from the prior exam. No pneumothorax or mediastinal shift Mediastinum: Mediastinal contours appear normal. Heart size is normal. Bones and chest wall: No suspicious bony lesions. Overlying soft tissues appear unremarkable. IMPRESSION: New large left pleural effusion. No pneumothorax or mediastinal shift. Endotracheal tube, right IJ CVL and left PICC line all in good position. Approved by: Maninder Javed M.D. on 07/20/2023 at 9:51
[2023-07-20] MEDS: NOREPINEPHRINE BITARTRATE/D5W 4 MG/250 ML PLAST..BAG 22.688 MG IV (10:19)
[2023-07-20] MEDS: propofoL 1,000 MG/100 ML VIAL 14.52 MG IV ×2 (10:23→15:05)
[2023-07-20] MEDS: fentaNYL 1,000 MCG in DEXTROSE 5% IN WATER 230 ML 10.588 MCG IV (10:27)
[2023-07-20] MEDS: propofoL 200 MG/20 ML VIAL 150 MG IV (10:30)
[2023-07-20 10:32] LABS: PCO2 ABG 36.9 mmHg (35-45); pH ABG 7.21 (7.35-7.45)
[2023-07-20 10:33] LABS: Fractionated Inspired Oxygen 80; HCO3 ABG 15 mmol/L (23-27); Oxygen Saturation ABG 84 % (95-100); PO2 ABG 59 mmHg (80-100); TCO2 ABG 16 mmol/L (23-27)
[2023-07-20 10:34] LABS: Allen Test for ABG Passed? Yes, Passed; Blood Gas Collection Site Left Radial
[2023-07-20] MEDS: WATER IV (10:34)
[2023-07-20] MEDS: SODIUM BICARB IV (10:34)
[2023-07-20] MEDS: DEXTROSE 5% IV (10:34)
[2023-07-20] MEDS: POTASSIUM CHLORIDE IN WATER 10 MEQ/100 ML PIGGYBACK 100 MEQ IV ×3 (10:48→12:58)
[2023-07-20] MEDS: ENOXAPARIN 40 MG/0.4 ML SYRINGE SUBCUT (11:08)
[2023-07-20] MEDS: FAMOTIDINE 20 MG/2 ML VIAL IV (11:08)
[2023-07-20] MEDS: PIPERACILLIN/TAZO 4.5 GM in SODIUM CHLORIDE 0.9% 100 ML IV (11:41)
[2023-07-20] MEDS: CHLORHEXIDINE GLUCONATE 15 ML CUP PO (11:41)
--- NOTE | 2023-07-20 11:47 | PM.AN.INVM ---
Invasive Monitor Note Procedure Procedure: Central Venous Catheter Insertion Start Time: 10:45 Stop Time: 10:10 Indication: Medical Management (Need for reliable IV access, req by Dr. Pereira. Pt has single-lumen PICC; otherwise very difficult PIV and staff unable to obtain after multiple attempts. ) Barrier Precautions Utilized: Cap, Mask, Hand Hygiene, 2% Chlorhexidine Cutaneous Antisepsis, Sterile Gloves, Sterile Gown, Large Sterile Drape Sheet and Maintenance of Sterile Field Vessel Utilized: Internal Jugular Vein: Right Ultrasound Ultrasound Guidance Utilized: Yes Ultrasound was used to identify the vessel. Assessed vessel was patent.: Internal Jugular Vein Ultrasound was used to visualize vascular needle entry into the: Internal Jugular Vein Limited exam reveals anatomically normal vessel with no apparent abnormal findings.: Yes Complications Complications: other (Easy R IJ CVC, first attempt. Sutured at 14 cm. All ports withdraw and flush easily. Brief run of tachycardia, VT per staff, settled into ST in 120-130s. Palpable radial/femoral pulses. Pt's HR was 110s pre-procedure. BP stable. CXR shows R IJ CVC and ETT in good position; no PTX. )
--- NOTE | 2023-07-20 12:06 | DI.RAD.S_ITS ---
PROCEDURE: XR CHEST 1V INDICATIONS: confirm OG placement TECHNIQUE: One view of the chest was acquired. COMPARISON: [facility], CR, XR CHEST 1V, 07/20/2023, 10:03. FINDINGS: Surgical changes and devices: Nasogastric tube in the stomach. Other lines and tubes unchanged Lungs and pleura: Large left pleural effusion. Improved aeration of the left upper lung Mediastinum: Mediastinal contours appear normal. Heart size is normal. Bones and chest wall: No suspicious bony lesions. Overlying soft tissues appear unremarkable. IMPRESSION: Nasogastric tube in the stomach. Other lines and tubes unchanged. Large left pleural effusion is slightly improved. Approved by: Maninder Javed M.D. on 07/20/2023 at 11:41
--- NOTE | 2023-07-20 12:10 | CM.DPNOTE ---
DCP Cont Patient now intubated and requires transfer for bronchoscopy. JW
--- NOTE | 2023-07-20 12:20 | PM.PROC.1 ---
Procedures Date/Time Date of procedure: 07/20/23 Time of procedure: 10:32 Intubation Sedative: other (Propofol 120 mg) Mg given: 120 Paralytic: rocuronium Mg given: 50 Laryngoscope: other (Insighter 6S) Assist device used: other (Stylet) ET tube size: 7 ET tube uncuffed: No Tube secured depth (cm): 21 Tube secured location: teeth Tube placement confirmation: visualized tube passing through cords, equal breath sounds bilaterally and confirmation by capnometry Patient tolerated procedure: well Intubation complications: none (Sats remained 90% or more) Additional comments: Intubation requested by hospitalist for 33yo female in respiratory failure with hx muscular dystrophy and prior intubation two years ago with COVID. Pt is tachycardic to 118 bpm, RR 60-68 on max support. Pt shakes head to indicate she does not want intubation. Parents are at bedside and state she never wants it. Discussed plan for both intubation and central venous access with both parents, who verbalize understanding and agreement and give verbal consent. Intubation proceeded smoothly with bag ventilation while waiting for paralytic to act. Thick secretions and mild difficulty lining up ETT with vocal cords, but O2 sats remained >90%. No known trauma. Thick secretions in ETT after intubation but good O2 sats. Post-procedure CXR shows ETT in good position. Propofol sedation started immediately after intubation. Pt tolerated well.
[2023-07-20] MEDS: VANCOMYCIN 1,500 MG/300 ML PIGGYBACK 200 MG IV (13:01)
[2023-07-20] MEDS: AZITHROMYCIN 500 MG in DEXTROSE 5% IN WATER 250 ML 250 MG IV (14:03)
--- NOTE | 2023-07-20 14:10 | P.DS_ITS ---
History of Present Illness History of Present Illness Chief complaint: loss of apetite, loosing her voice Narrative: This is a 33 year old female with PMH of muscular dystrophy, prior intubation for what appeared to be respiratory failure in the setting of mucous plugging and COVID 19 approx. 2 years ago, who presented with malaise, suppressed appetite, and sore throat. Patient's family checked her oxygen which was noted to be in the mid 80s at home. She was brought to the ER at that time. She has had productive cough and hoarse voice, denies fever, chills abdominal pain, chest pain, nausea, vomiting, diarrhea, lower extremity edema. In the ER, patient positive for rhinovirus. Given previous decompensation during a prior visit, patient was monitored for a couple of hours without notable change. She remained on a few L of O2 to keep O2 saturations above 90%. D-dimer was 627, CTA negative for PE but does show an infiltrate consistent with pneumonia. VBG showed a pH of 7.30, PCO2 of 51. She was admitted for acute respiratory failure secondary to viral and probable superimposed bacterial PNA. 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 Acute hypoxemic and hypercapnic respiratory failure due to rhinovirus and presumed superimposed bacterial pneumonia, present on admission - h/o intubation with COVID in 2021, requiring 4-5 bronchs to clear copious secretions - initially on ceftriaxone and azithromycin, broadened to vanc and zosyn once patient intubated - initially on 3L, then increased to 9L, then HFNC at 40L and 100%, likely due to progressive mucus plugging - CTA negative for PE, shows L basilar PNA, chronically elevated L hemidiaphragm - on 07/19 patient intubated due to tachypnea and tachycardia and max HFNC, post-intubation CXR showed collapsed L lung - will need bronch, transferred to [facility] for ICU and pulm consult for bronch 2. Metabolic acidosis - normal LA, possibly hyperchloremic - bicarb drip 3. Muscular dystrophy Code: Full, surrogate is patient's mother DVT: Lovenox daily Hospital Course: Admitted for worsening SOB, cough and poor appetite. Found to have PNA due to rhinovirus with possible superimposed bacterial component. Given CAP abx with rocephin and azithro. Attempted liquid mucinex, chest PT and mucomyst but patient continued to have secretions which she cannot clear due to her MD. O2 needs increased over 2 days from 3L>9L>40L. CXR showed worsening infiltrates. She was intubated on 07/19 and post-intubation CXR showed a collapsed left lung. She was placed on pressors due to hypotension with sedation. Bicarb drip started due to HAGMA. She was transferred to [facility] ICU for pulm consult for bronchoscopy. Exam Vital Signs (past 8 hours): - 07/20/23 07:00 07/20/23 07:00 07/20/23 07:00 Temperature Pulse Rate 112 H Respiratory Rate 54 H Blood Pressure 120/65 Pulse Oximetry 93 Oxygen Delivery Method Heated High Flow 07/20/23 08:00 07/20/23 08:00 07/20/23 08:00 Temperature 98.5 F 98.5 F Pulse Rate 114 H Respiratory Rate 60 H Blood Pressure 117/67 Pulse Oximetry 93 Oxygen Delivery Method 07/20/23 08:24 07/20/23 09:00 07/20/23 09:00 Temperature Pulse Rate 112 H 118 H Respiratory Rate 61 H 63 H Blood Pressure 114/61 Pulse Oximetry 94 94 Oxygen Delivery Method 07/20/23 09:28 07/20/23 09:28 07/20/23 09:30 Temperature Pulse Rate 121 H Respiratory Rate 68 H Blood Pressure 117/57 L 99/50 L Pulse Oximetry 94 Oxygen Delivery Method 07/20/23 09:30 07/20/23 09:33 07/20/23 09:33 Temperature Pulse Rate 116 H 124 H Respiratory Rate 16 25 H Blood Pressure 107/60 Pulse Oximetry 94 97 Oxygen Delivery Method 07/20/23 09:36 07/20/23 09:36 07/20/23 09:37 Temperature Pulse Rate 104 H 104 H Respiratory Rate 25 H 26 H Blood Pressure 80/44 L Pulse Oximetry 94 99 Oxygen Delivery Method 07/20/23 09:39 07/20/23 09:39 07/20/23 09:42 Temperature Pulse Rate 102 H Respiratory Rate 28 H Blood Pressure 73/38 L 80/45 L Pulse Oximetry 99 Oxygen Delivery Method 07/20/23 09:42 07/20/23 09:45 07/20/23 09:45 Temperature Pulse Rate 95 H 90 Respiratory Rate 25 H 24 Blood Pressure 79/44 L Pulse Oximetry 99 100 Oxygen Delivery Method 07/20/23 09:48 07/20/23 09:48 07/20/23 09:51 Temperature Pulse Rate 90 Respiratory Rate 24 Blood Pressure 80/46 L 90/53 L Pulse Oximetry 100 Oxygen Delivery Method 07/20/23 09:51 07/20/23 09:54 07/20/23 09:54 Temperature Pulse Rate 92 H 95 H Respiratory Rate 21 21 Blood Pressure 91/53 L Pulse Oximetry 98 97 Oxygen Delivery Method 07/20/23 09:57 07/20/23 09:57 07/20/23 10:00 Temperature Pulse Rate 98 H 101 H Respiratory Rate 20 22 Blood Pressure 99/58 L Pulse Oximetry 97 96 Oxygen Delivery Method 07/20/23 10:00 07/20/23 10:00 07/20/23 10:03 Temperature Pulse Rate Respiratory Rate Blood Pressure 97/60 100/62 Pulse Oximetry 94 Oxygen Delivery Method Mechanical Ventilation 07/20/23 10:03 07/20/23 10:06 07/20/23 10:06 Temperature Pulse Rate 104 H 106 H Respiratory Rate 19 19 Blood Pressure 107/64 Pulse Oximetry 97 96 Oxygen Delivery Method 07/20/23 10:09 07/20/23 10:09 07/20/23 10:12 Temperature Pulse Rate 121 H Respiratory Rate 20 Blood Pressure 108/69 129/78 Pulse Oximetry 95 Oxygen Delivery Method 07/20/23 10:12 07/20/23 10:15 07/20/23 10:15 Temperature Pulse Rate 125 H 102 H Respiratory Rate 19 20 Blood Pressure 107/55 L Pulse Oximetry 95 94 Oxygen Delivery Method 07/20/23 10:18 07/20/23 10:18 07/20/23 10:21 Temperature Pulse Rate 98 H 96 H Respiratory Rate 18 18 Blood Pressure 74/39 L Pulse Oximetry 93 93 Oxygen Delivery Method 07/20/23 10:21 07/20/23 10:25 07/20/23 10:25 Temperature Pulse Rate 93 H Respiratory Rate 18 Blood Pressure 73/40 L 82/45 L Pulse Oximetry 93 Oxygen Delivery Method 07/20/23 10:28 07/20/23 10:30 07/20/23 10:30 Temperature Pulse Rate 97 H 96 H Respiratory Rate 18 18 Blood Pressure 101/56 L Pulse Oximetry 93 94 Oxygen Delivery Method 07/20/23 10:35 07/20/23 10:35 07/20/23 10:40 Temperature Pulse Rate 95 H Respiratory Rate 18 Blood Pressure 97/52 L 95/53 L Pulse Oximetry 94 Oxygen Delivery Method 07/20/23 10:40 07/20/23 10:45 07/20/23 10:45 Temperature Pulse Rate 93 H 95 H Respiratory Rate 18 18 Blood Pressure 99/55 L Pulse Oximetry 93 91 Oxygen Delivery Method 07/20/23 10:50 07/20/23 10:50 07/20/23 10:55 Temperature Pulse Rate 95 H 95 H Respiratory Rate 23 23 Blood Pressure 97/54 L Pulse Oximetry 94 94 Oxygen Delivery Method 07/20/23 10:55 07/20/23 11:00 07/20/23 11:00 Temperature Pulse Rate 93 H Respiratory Rate 23 Blood Pressure 96/54 L 99/55 L Pulse Oximetry 94 Oxygen Delivery Method 07/20/23 11:00 07/20/23 11:02 07/20/23 11:05 Temperature Pulse Rate 95 H Respiratory Rate 23 Blood Pressure 100/56 L Pulse Oximetry 94 Oxygen Delivery Method Mechanical Ventilation 07/20/23 11:05 07/20/23 11:10 07/20/23 11:10 Temperature Pulse Rate 95 H 91 H Respiratory Rate 23 23 Blood Pressure 101/56 L Pulse Oximetry 94 94 Oxygen Delivery Method 07/20/23 11:15 07/20/23 11:15 07/20/23 11:20 Temperature Pulse Rate 94 H Respiratory Rate 23 Blood Pressure 97/53 L 95/52 L Pulse Oximetry 93 Oxygen Delivery Method 07/20/23 11:20 07/20/23 11:25 07/20/23 11:25 Temperature Pulse Rate 93 H 92 H Respiratory Rate 23 23 Blood Pressure 97/53 L Pulse Oximetry 92 93 Oxygen Delivery Method 07/20/23 11:30 07/20/23 11:30 07/20/23 11:35 Temperature Pulse Rate 92 H Respiratory Rate 23 Blood Pressure 98/53 L 98/57 L Pulse Oximetry 95 Oxygen Delivery Method 07/20/23 11:35 07/20/23 11:40 07/20/23 11:40 Temperature Pulse Rate 92 H 91 H Respiratory Rate 23 23 Blood Pressure 97/55 L Pulse Oximetry 94 96 Oxygen Delivery Method 07/20/23 11:45 07/20/23 11:45 07/20/23 11:50 Temperature Pulse Rate 91 H Respiratory Rate 23 Blood Pressure 98/56 L 96/53 L Pulse Oximetry 96 Oxygen Delivery Method 07/20/23 11:50 07/20/23 11:55 07/20/23 11:55 Temperature Pulse Rate 91 H 87 Respiratory Rate 23 23 Blood Pressure 89/51 L Pulse Oximetry 96 95 Oxygen Delivery Method 07/20/23 12:00 07/20/23 12:00 07/20/23 12:05 Temperature 98.8 F Pulse Rate 95 H Respiratory Rate 23 Blood Pressure 109/63 101/59 L Pulse Oximetry 95 Oxygen Delivery Method 07/20/23 12:05 07/20/23 12:10 07/20/23 12:10 Temperature Pulse Rate 91 H 96 H Respiratory Rate 23 23 Blood Pressure 105/59 L Pulse Oximetry 93 93 Oxygen Delivery Method 07/20/23 12:15 07/20/23 12:15 07/20/23 12:20 Temperature Pulse Rate 90 91 H Respiratory Rate 24 23 Blood Pressure 104/63 Pulse Oximetry 93 98 Oxygen Delivery Method 07/20/23 12:20 07/20/23 12:25 07/20/23 12:25 Temperature Pulse Rate 92 H Respiratory Rate 23 Blood Pressure 117/70 117/70 Pulse Oximetry 98 Oxygen Delivery Method 07/20/23 12:30 07/20/23 12:30 07/20/23 12:35 Temperature Pulse Rate 92 H Respiratory Rate 23 Blood Pressure 116/68 118/67 Pulse Oximetry 98 Oxygen Delivery Method 07/20/23 12:35 07/20/23 12:40 07/20/23 12:40 Temperature Pulse Rate 91 H 93 H Respiratory Rate 23 23 Blood Pressure 118/66 Pulse Oximetry 98 98 Oxygen Delivery Method 07/20/23 12:45 07/20/23 12:45 07/20/23 12:50 Temperature Pulse Rate 91 H Respiratory Rate 23 Blood Pressure 112/62 113/61 Pulse Oximetry 97 Oxygen Delivery Method 07/20/23 12:50 07/20/23 12:55 07/20/23 12:55 Temperature Pulse Rate 93 H 95 H Respiratory Rate 23 23 Blood Pressure 111/62 Pulse Oximetry 98 98 Oxygen Delivery Method 07/20/23 13:00 07/20/23 13:00 07/20/23 13:05 Temperature Pulse Rate 94 H Respiratory Rate 23 Blood Pressure 111/59 L 111/60 Pulse Oximetry 98 Oxygen Delivery Method 07/20/23 13:05 07/20/23 13:30 07/20/23 13:30 Temperature Pulse Rate 94 H 91 H Respiratory Rate 23 23 Blood Pressure 114/63 Pulse Oximetry 98 99 Oxygen Delivery Method 07/20/23 14:00 07/20/23 14:00 07/20/23 14:04 Temperature Pulse Rate 91 H 92 H Respiratory Rate 23 23 Blood Pressure 109/60 Pulse Oximetry 99 99 Oxygen Delivery Method Oxygen Delivery Method Mechanical Ventilation Oxygen Flow Rate 40 Narrative Exam Narrative: Gen: intubated and sedated ENT: poor dentition, MMM CV: RRR no m/r/g Pulm: coarse breath sounds bilaterally Abd: S NT ND Ext: no edema Objective Labs 07/20/23 05:15 07/20/23 05:15 Labs: Laboratory Results - last 24 hr 07/19/23 07/19/23 07/19/23 09:21 21:09 21:12 WBC 13.0 H RBC 4.30 Hgb 13.8 Hct 41.8 MCV 97.3 MCH 32.2 MCHC 33.1 RDW 14.2 Plt Count 183 Neut % (Auto) 89.6 H Lymph % (Auto) 3.8 L [place] % (Auto) 6.3 Eos % (Auto) 0.1 L Baso % (Auto) 0.2 Neut # (Auto) 72792 H Lymph # (Auto) 500 L [place] # (Auto) 800 Eos # (Auto) 0 Baso # (Auto) 0 ABG Sample Site Right radial Right radial ABG pH 7.27 L* 7.24 L* ABG pCO2 33.0 L 42.6 ABG pO2 61 L 50 L ABG HCO3 16 L 18 L ABG Total CO2 16 L 20 L ABG O2 Saturation 88 L 78 L* ABG Base Excess -11.0 L -9.0 L FiO2 64 Sodium 144 Potassium 3.3 L Chloride 115 H Carbon Dioxide 18 L BUN 6 L Creatinine 0.31 L Estimated GFR > 60 BUN/Creatinine Ratio 19.4 Glucose 96 Lactate 0.7 Calcium 8.9 Magnesium Total Bilirubin 0.9 AST 25 ALT 19 Alkaline Phosphatase 76 Total Protein 7.3 Albumin 4.2 Globulin 3.1 Albumin/Globulin Ratio 1.4 07/20/23 07/20/23 05:15 10:20 WBC 14.7 H RBC 4.38 Hgb 13.9 Hct 42.5 MCV 96.9 MCH 31.8 MCHC 32.8 RDW 14.2 Plt Count 182 Neut % (Auto) 91.0 H Lymph % (Auto) 1.7 L [place] % (Auto) 7.2 Eos % (Auto) 0.0 L Baso % (Auto) 0.1 Neut # (Auto) 62916 H Lymph # (Auto) 300 L [place] # (Auto) 1100 H Eos # (Auto) 0 Baso # (Auto) 0 ABG Sample Site Left radial ABG pH 7.21 L* ABG pCO2 36.9 ABG pO2 59 L ABG HCO3 15 L ABG Total CO2 16 L ABG O2 Saturation 84 L* ABG Base Excess -13.0 L FiO2 80 Sodium 143 Potassium 3.3 L Chloride 115 H Carbon Dioxide 15 L BUN 4 L Creatinine 0.30 L Estimated GFR > 60 BUN/Creatinine Ratio 13.3 Glucose 112 H Lactate Calcium 9.1 Magnesium 2.0 Total Bilirubin AST ALT Alkaline Phosphatase Total Protein Albumin Globulin Albumin/Globulin Ratio PFSH Medical History Muscular dystrophy Surgical History S/P bronchoscopy Social History household members: family Smoking Status: Never smoker alcohol intake: never Discharge Plan Discharge Plan Patient Disposition: Xfer Acute Care Hospital Visit Report/Discharge Packet Instructions: Peripherally Inserted Central Catheter Discharge Data Primary Care Provider: Jennifer Bustillos
--- NOTE | 2023-07-20 14:28 | PC.NURSE ---
Addendum entered by Sandi Calvo R.N. 07/20/23 15:50: Transport arrived at approximately 1500. Pt transferred to their stretcher, to their ventilator. acting instructor requested to take IV pumps (3 ct) to be returned this evening due to an issue with theirs. VSS at time of transfer. RASS -2. Pt departed with transport team at approximately 1529. Parents at bedside and notified of receiving facility and room number. Report called to receiving RN at [place] at 1545. Original Note: Day shift: Upon entering pt's room, this RN noted RR of 55-60 shallow, oxygenation 92%. Pt A&Ox4 but soft spoken, SOB. When asked to take a deep breath, pt shook head no. Other VSS. Provider notified. (See ABG). Decision to intubate was made, pt agreeable, family agreeable. Dr. Zelaya at bedside at 0926. 0929 intubation medications given (See MAR). Pt hyperoxygenated, BP 99/50, HR 120, O2 90%. 0931, mouth suctioned again, ET tube placed 0931 21 @ the teeth, positive color change. FiO2 80%, VT 300, RR18, PEEP 5. Central line placed by Dr. Zelaya to [facility]. V-tach alarm on monitor, pulse checked, radial and femoral pulses strong and palpable 140. Pt back to sinus tach without intervention. Copious, thick, white secretions present in mouth and in tube, suctioned. Transfer pending. Family agreeable. Care ongoing, will continue to monitor.
== END 2023-07-20 15:29 | disposition short-term general hospital (02) | DRG 208 ==
LOC: ED 15:34 → ICU 07-19 06:25 → AC 07-19 09:11 → ICU 07-19 09:11
PROVIDERS: Internal Medicine Critical Care Medicine; Student in an Organized Health Care Education/Training Program; Admitting Provider Internal Medicine; Emergency Provider Emergency Medicine; Family Provider Family Medicine; PCP Family Medicine; Referring Provider Emergency Medicine; Visit Provider Internal Medicine
DX: J12.89 Other viral pneumonia (principal); J96.21 Acute and chronic respiratory failure with hypoxia; J96.22 Acute and chronic respiratory failure with hypercapnia; E87.20 Acidosis, unspecified; J98.19 Other pulmonary collapse; B34.8 Other viral infections of unspecified site; G71.00 Muscular dystrophy, unspecified; J15.9 Unspecified bacterial pneumonia
CPT/HCPCS: 36415; 36569; 36600; 71045; 71275; 80048; 80053; 82550; 82805; 83605; 83735; 83880; 84145; 84484; 85025; 85379; 87040; 87633; 87797; 93005; 93010; 94002; 94640; 94668; 94799; 96365; 96366; 96367; 99285; J0696; J1642; J1650; J2543; J2704; J3010; J7613; Q9967

== ENCOUNTER 2024-07-12 21:45 | Inpatient (IN) | payer BC, OTHER, SELFPAY ==
[2021-08-20 23:00] VITALS: RESP 18
[2023-07-18 16:24] VITALS: BMI 23.3
[2023-07-20 14:47] VITALS: PULSE 88; RESP 23; O2SAT 98
[2024-07-12] VITALS (7 sets, daily range): BP systolic 98–109; BP diastolic 63–69; PULSE 83–94; RESP 18; TEMP 37.4; O2SAT 85–96; BMI 22.4
--- NOTE | 2024-07-12 22:03 | DI.RAD.S_ITS ---
PROCEDURE: XR CHEST 1V INDICATIONS: sob TECHNIQUE: One view of the chest was acquired. COMPARISON: [facility], CT, CT ANGIO CHEST PE PROTOCOL, 07/18/2023, 13:35. [facility], CR, XR CHEST 1V, 07/19/2023, 9:17. [facility], CR, XR CHEST FOR PICC 1V, 07/19/2023, 12:19. [facility], CR, XR CHEST 1V, 07/20/2023, 12:11. [facility], CR, XR CHEST 1V, 07/20/2023, 10:03. FINDINGS: Surgical changes and devices: None. Lungs and pleura: Lungs are clear. Stable elevation of the left hemidiaphragm. No pleural effusions or pneumothorax. Mediastinum: Mediastinal contours appear normal. Heart size is normal. Suspected air-filled esophagus. Bones and chest wall: Prominent air-filled loops of large bowel in the upper abdomen. No suspicious bony lesions. Overlying soft tissues appear unremarkable. IMPRESSION: No acute cardiopulmonary abnormality is seen. Approved by: Oscar Valiente M.D. on 07/12/2024 at 22:29
--- NOTE | 2024-07-12 22:10 | PC.NURSE ---
decreased appetite per parents, and low o2 sats pt has hx of pneumonia, at present pt resp even and unlabored with no acute distress noted
--- NOTE | 2024-07-12 22:12 | EKG_ITS ---
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
--- NOTE | 2024-07-12 22:35 | ED_ITS ---
HPI - URI/Sore Throat <Nba Alvarado DO - Last Filed: 07/13/24 06:42> General Chief Complaint: Upper Respiratory Symptoms Stated Complaint: oxygen 92, cough, not feeling well Time Seen by Provider: 07/12/24 22:03 History of Present Illness HPI Narrative: 34-year-old female history of muscular dystrophy with history of prior intubation for respiratory failure secondary to COVID pneumonia presents tonight with family at bedside for being lethargic this morning had breakfast but did not have lunch or dinner. Has had a wet cough with clear phelgm production that started yesterday but per family usually an indication that she has an infection and wanted to be proactive to be checked out. Per dad baseline ankle fractures in the remote past so does not ambulate baseline uses wheelchair with arms to move around. She is able to communicate with very basic limited communication based on limited vocabulary and gesture unable to have a full conversation baseline. Denies any fever, chills, nausea, vomiting, diarrhea, chest pain, or worsening shortness of breath. Patient history taken from mostly dad at bedside as I am able to get a clear HPI from patient baseline today. Related Data Home Medications Medication Instructions Recorded Confirmed No Known Home Medications 07/13/24 07/13/24 Allergies Allergy/AdvReac Type Severity Reaction Status Date / Time No Known Drug Allergies Allergy Verified 07/12/24 21:50 Review of Systems <Nba Alvarado DO - Last Filed: 07/13/24 06:42> Review of Systems ROS Unobtainable: All systems reviewed & are unremarkable except as noted in HPI and below Patient History <Nba Alvarado DO - Last Filed: 07/13/24 06:42> Medical History Muscular dystrophy Surgical History S/P bronchoscopy Social History household members: family Smoking Status: Never smoker alcohol intake: never Smoking Status: Never smoker Exam <Nba Alvarado DO - Last Filed: 07/13/24 06:42> Narrative Exam Narrative: GENERAL: [34] year old patient appears stated age. Well-developed patient, in mild distress. EYES: Pupils equal round and reactive. Extraocular motions intact. No scleral icterus. No injection or drainage. ENT: Nose without bleeding, purulent drainage. Throat without erythema, tonsillar hypertrophy or exudate. Airway patent. NECK: Trachea midline. Non tender CARDIOVASCULAR: Regular rate and rhythm without murmurs, gallops, or rubs. RESPIRATORY: Dimished Breath sounds equal bilaterally except for wet cough. GASTROINTESTINAL: Abdomen soft, non-tender, nondistended. EXTREMITIES: No edema or joint tenderness. BACK: Nontender without deformity or crepitance. No flank tenderness. NEURO: CN 2-12 intact. Initial Vital Signs Initial Vital Signs: Vital Signs Temperature 99.3 F 07/12/24 21:50 Pulse Rate 94 H 07/12/24 21:50 Respiratory Rate 18 07/12/24 21:50 Blood Pressure 98/63 07/12/24 21:50 Pulse Oximetry 96 07/12/24 21:50 Oxygen Delivery Method Room Air 07/12/24 21:50 <Colleen Parmar, DO - Last Filed: 07/13/24 18:15> Initial Vital Signs Initial Vital Signs: Vital Signs Temperature 99.3 F 07/12/24 21:50 Pulse Rate 94 H 07/12/24 21:50 Respiratory Rate 18 07/12/24 21:50 Blood Pressure 98/63 07/12/24 21:50 Pulse Oximetry 96 07/12/24 21:50 Oxygen Delivery Method Room Air 07/12/24 21:50 Course <Nba Alvarado, DO - Last Filed: 07/13/24 06:42> Orders Ordered: ED Orders 07/13/24 10:36 MR head/brain wo con Stat Acetaminophen (Acetaminophen 325 Mg Tablet) 650 mg PO Q6H PRN PRN Reason: Fever/Mild Pain (1-3) Enoxaparin Sodium (Enoxaparin 40 Mg/0.4 Ml Syringe) 40 mg SUBCUT DAILY [facility] Piperacillin Sod/Tazobactam (Sod 3.375 gm/ Sodium Chloride) 100 mls @ 25 mls/hr IV Q8H [facility] Last Admin: 07/13/24 13:43 Dose: 25 mls/hr Documented By: KEELEY Sodium Chloride (Normal Saline 0.9%) 1,000 mls @ 100 mls/hr IV CONT [facility] Last Admin: 07/13/24 13:44 Dose: 100 mls/hr Documented By: KEELEY Naloxone HCl (Naloxone 0.4 Mg/Ml Vial) 0.2 mg IV Q2MIN PRN PRN Reason: Opiate Reversal Ondansetron HCl (Ondansetron 4 Mg/2 Ml Inj) 4 mg IV Q4HR PRN PRN Reason: Nausea And Vomiting Discontinued Medications Albuterol/Ipratropium (Albuterol/Ipratropium 3 Ml Ampul) 3 ml INH NOW ONE Stop: 07/13/24 02:23 Last Admin: 07/13/24 02:32 Dose: 3 ml Documented By: IRIS Enoxaparin Sodium (Enoxaparin 30 Mg/0.3 Ml Syringe) 30 mg SUBCUT DAILY [facility] Last Admin: 07/13/24 13:58 Dose: Not Given Documented By: KEELEY Ceftriaxone Sodium 1,000 mg/ (Sodium Chloride) 100 mls @ 200 mls/hr IV NOW ONE Stop: 07/13/24 00:26 Last Infusion: 07/13/24 01:17 Dose: Infused Documented By: Admin: 07/13/24 00:31 Dose: 200 mls/hr Documented By: HARIS Azithromycin 500 mg/ Dextrose 250 mls @ 250 mls/hr IV NOW ONE Stop: 07/13/24 00:26 Last Infusion: 07/13/24 02:45 Dose: Infused Documented By: Admin: 07/13/24 01:02 Dose: 250 mls/hr Documented By: HARIS Vital Signs Vital signs: Vital Signs - 8 hr 07/13/24 10:38 07/13/24 10:40 07/13/24 10:40 Pulse Rate 78 78 Blood Pressure 113/70 Pulse Oximetry 92 92 07/13/24 11:00 07/13/24 11:00 07/13/24 11:30 Pulse Rate 87 79 Blood Pressure 97/59 L Pulse Oximetry 92 93 07/13/24 11:30 Pulse Rate Blood Pressure 99/58 L Pulse Oximetry <Colleen Parmar DO - Last Filed: 07/13/24 18:15> Orders Ordered: ED Orders 07/13/24 10:36 MR head/brain wo con Stat Acetaminophen (Acetaminophen 325 Mg Tablet) 650 mg PO Q6H PRN PRN Reason: Fever/Mild Pain (1-3) Enoxaparin Sodium (Enoxaparin 40 Mg/0.4 Ml Syringe) 40 mg SUBCUT DAILY [facility] Piperacillin Sod/Tazobactam (Sod 3.375 gm/ Sodium Chloride) 100 mls @ 25 mls/hr IV Q8H [facility] Last Admin: 07/13/24 13:43 Dose: 25 mls/hr Documented By: KEELEY Sodium Chloride (Normal Saline 0.9%) 1,000 mls @ 100 mls/hr IV CONT [facility] Last Admin: 07/13/24 13:44 Dose: 100 mls/hr Documented By: KEELEY Naloxone HCl (Naloxone 0.4 Mg/Ml Vial) 0.2 mg IV Q2MIN PRN PRN Reason: Opiate Reversal Ondansetron HCl (Ondansetron 4 Mg/2 Ml Inj) 4 mg IV Q4HR PRN PRN Reason: Nausea And Vomiting Discontinued Medications Albuterol/Ipratropium (Albuterol/Ipratropium 3 Ml Ampul) 3 ml INH NOW ONE Stop: 07/13/24 02:23 Last Admin: 07/13/24 02:32 Dose: 3 ml Documented By: IRIS Enoxaparin Sodium (Enoxaparin 30 Mg/0.3 Ml Syringe) 30 mg SUBCUT DAILY [facility] Last Admin: 07/13/24 13:58 Dose: Not Given Documented By: KEELEY Ceftriaxone Sodium 1,000 mg/ (Sodium Chloride) 100 mls @ 200 mls/hr IV NOW ONE Stop: 07/13/24 00:26 Last Infusion: 07/13/24 01:17 Dose: Infused Documented By: Admin: 07/13/24 00:31 Dose: 200 mls/hr Documented By: HARIS Azithromycin 500 mg/ Dextrose 250 mls @ 250 mls/hr IV NOW ONE Stop: 07/13/24 00:26 Last Infusion: 07/13/24 02:45 Dose: Infused Documented By: Admin: 07/13/24 01:02 Dose: 250 mls/hr Documented By: HARIS Vital Signs Vital signs: Vital Signs - 8 hr 07/13/24 10:38 07/13/24 10:40 07/13/24 10:40 Pulse Rate 78 78 Blood Pressure 113/70 Pulse Oximetry 92 92 07/13/24 11:00 07/13/24 11:00 07/13/24 11:30 Pulse Rate 87 79 Blood Pressure 97/59 L Pulse Oximetry 92 93 07/13/24 11:30 Pulse Rate Blood Pressure 99/58 L Pulse Oximetry MDM - URI/Sore Throat <Nba Alvarado, DO - Last Filed: 07/13/24 06:42> Lab Data 07/12/24 22:45 07/12/24 22:45 Labs: Lab Results 07/12/24 07/12/24 07/13/24 Range/Units 22:45 22:50 01:14 WBC 8.5 (4.5-11.0) X10^3/uL RBC 4.76 (4.0-5.2) X10^6/uL Hgb 15.0 (12.0-16.0) g/dL Hct 45.0 (36-46) % MCV 94.6 (80-100) fL MCH 31.5 (26-34) PG MCHC 33.3 (30-36) % RDW 14.6 (11.6-14.8) % Plt Count 157 (150-400) X10^3/uL Neut % (Auto) 90.2 H (50-75) % Lymph % (Auto) 5.3 L (25-40) % [place] % (Auto) 3.7 (3-14) % Eos % (Auto) 0.4 L (2-4) % Baso % (Auto) 0.4 (0-2) % Neut # (Auto) 7700 H (2115-8752) /uL Lymph # (Auto) 400 L (2572-8778) /uL [place] # (Auto) 300 (0-900) /uL Eos # (Auto) 0 (0-450) /uL Baso # (Auto) 0 (0-100) /uL PT 11.7 (9.4-12.5) SECONDS INR 1.0 (0.9-1.3) VBG pH 7.38 (7.33-7.43) VBG pCO2 54.8 H (45-50) mmHg VBG pO2 30 L (35-45) mmHg VBG HCO3 32 H (24-28) mmol/L VBG Total CO2 31 H (24-29) mmol/L VBG O2 Saturation 55 L (70-75) % VBG Base Excess 5.1 H (0-4) mmol/L Sodium 144 (137-145) mmol/L Potassium 4.0 (3.4-5.1) mmol/L Chloride 107 (98-107) mmol/L Carbon Dioxide 29 (22-32) mmol/L BUN 10 (7-17) mg/dL Creatinine 0.35 L (0.52-1.04) mg/dL Estimated GFR > 60 (>60) mL/min BUN/Creatinine Ratio 28.6 H (6-22) Glucose 115 H (70-99) mg/dL Lactate 1.2 (0.7-2.1) mmol/L Calcium 9.1 (8.4-10.2) mg/dL Total Bilirubin 1.0 (0.2-1.3) mg/dL AST 42 H (14-36) IU/L ALT 30 (<35) IU/L Alkaline Phosphatase 72 (38-126) U/L Ammonia (9-30) umol/L Total Creatine Kinase 124 (30-135) U/L Troponin I < 0.012 (0.01-0.034) ng/mL NT-Pro-B Natriuret Pep 555 H (<125) pg/mL Total Protein 7.9 (6.3-8.2) g/dL Albumin 4.6 (3.5-5.0) g/dL Globulin 3.3 (1.7-4.1) g/dL Albumin/Globulin Ratio 1.4 (1.0-2.8) Procalcitonin 0.066 (<0.5) ng/mL TSH 0.915 (0.47-4.68) uIU/mL U Opiates 300ng/mL cut (Negative) Ur Oxycodone Screen (Negative) Urine Methadone Screen (Negative) Ur Barbiturates Screen (Negative) U Tricyclic Antidepress (Negative) Ur Phencyclidine Scrn (Negative) Ur Amphetamines Screen (Negative) U Methamphetamines Scrn (Negative) Ur MDMA Scrn (Ecstasy) (Negative) U Benzodiazepines Scrn (Negative) Urine Cocaine Screen (Negative) U Marijuana (THC) Screen (Negative) Urine pH Urine Specific [place] Ur Creatinine Chlamy pneumoniae PCR (Not Detect) Adenovirus (PCR) (Not Detect) B. pertussis DNA (PCR) (Not Detect) B.parapertussis DNA PCR (Not Detecte) Coronavirus OC43 (PCR) (Not Detect) Coronavirus HKU1 (PCR) (Not Detect) Coronavirus 229E (PCR) (Not Detect) SARS-CoV-2 (PCR) Negative (Negative) Coronavirus NL63 (PCR) (Not Detect) Human Metapneumovir PCR (Not Detect) Influenza A (RT-PCR) Flu a negative (NEGATIVE) Influenza Type A (PCR) (Not Detect) Influenza B (RT-PCR) Flu b negative (NEGATIVE) Influenza Type B (PCR) (Not Detect) M. pneumoniae (PCR) (Not Detect) Parainfluenza 1 (PCR) (Not Detect) Parainfluenza 2 (PCR) (Not Detect) Parainfluenza 3 (PCR) (Not Detect) Parainfluenza 4 (PCR) (Not Detect) RSV (PCR) Negative (Negative) Entero/Rhino (PCR) (Not Detect) 07/13/24 07/13/24 07/13/24 Range/Units 02:30 03:33 09:03 WBC (4.5-11.0) X10^3/uL RBC (4.0-5.2) X10^6/uL Hgb (12.0-16.0) g/dL Hct (36-46) % MCV (80-100) fL MCH (26-34) PG MCHC (30-36) % RDW (11.6-14.8) % Plt Count (150-400) X10^3/uL Neut % (Auto) (50-75) % Lymph % (Auto) (25-40) % [place] % (Auto) (3-14) % Eos % (Auto) (2-4) % Baso % (Auto) (0-2) % Neut # (Auto) (3683-2857) /uL Lymph # (Auto) (5912-9437) /uL [place] # (Auto) (0-900) /uL Eos # (Auto) (0-450) /uL Baso # (Auto) (0-100) /uL PT (9.4-12.5) SECONDS INR (0.9-1.3) VBG pH (7.33-7.43) VBG pCO2 (45-50) mmHg VBG pO2 (35-45) mmHg VBG HCO3 (24-28) mmol/L VBG Total CO2 (24-29) mmol/L VBG O2 Saturation (70-75) % VBG Base Excess (0-4) mmol/L Sodium (137-145) mmol/L Potassium (3.4-5.1) mmol/L Chloride (98-107) mmol/L Carbon Dioxide (22-32) mmol/L BUN (7-17) mg/dL Creatinine (0.52-1.04) mg/dL Estimated GFR (>60) mL/min BUN/Creatinine Ratio (6-22) Glucose (70-99) mg/dL Lactate (0.7-2.1) mmol/L Calcium (8.4-10.2) mg/dL Total Bilirubin (0.2-1.3) mg/dL AST (14-36) IU/L ALT (<35) IU/L Alkaline Phosphatase (38-126) U/L Ammonia < 9 L (9-30) umol/L Total Creatine Kinase (30-135) U/L Troponin I (0.01-0.034) ng/mL NT-Pro-B Natriuret Pep (<125) pg/mL Total Protein (6.3-8.2) g/dL Albumin (3.5-5.0) g/dL Globulin (1.7-4.1) g/dL Albumin/Globulin Ratio (1.0-2.8) Procalcitonin (<0.5) ng/mL TSH (0.47-4.68) uIU/mL U Opiates 300ng/mL cut Negative (Negative) Ur Oxycodone Screen Negative (Negative) Urine Methadone Screen Negative (Negative) Ur Barbiturates Screen Negative (Negative) U Tricyclic Antidepress Negative (Negative) Ur Phencyclidine Scrn Negative (Negative) Ur Amphetamines Screen Negative (Negative) U Methamphetamines Scrn Negative (Negative) Ur MDMA Scrn (Ecstasy) Negative (Negative) U Benzodiazepines Scrn Negative (Negative) Urine Cocaine Screen Negative (Negative) U Marijuana (THC) Screen Negative (Negative) Urine pH TNP Urine Specific [place] TNP Ur Creatinine TNP Chlamy pneumoniae PCR Not detected (Not Detect) Adenovirus (PCR) Not detected (Not Detect) B. pertussis DNA (PCR) Not detected (Not Detect) B.parapertussis DNA PCR Not detected (Not Detecte) Coronavirus OC43 (PCR) Not detected (Not Detect) Coronavirus HKU1 (PCR) Not detected (Not Detect) Coronavirus 229E (PCR) Not detected (Not Detect) SARS-CoV-2 (PCR) Not detected (Negative) Coronavirus NL63 (PCR) Not detected (Not Detect) Human Metapneumovir PCR Not detected (Not Detect) Influenza A (RT-PCR) (NEGATIVE) Influenza Type A (PCR) Not detected (Not Detect) Influenza B (RT-PCR) (NEGATIVE) Influenza Type B (PCR) Not detected (Not Detect) M. pneumoniae (PCR) Not detected (Not Detect) Parainfluenza 1 (PCR) Not detected (Not Detect) Parainfluenza 2 (PCR) Not detected (Not Detect) Parainfluenza 3 (PCR) Not detected (Not Detect) Parainfluenza 4 (PCR) Not detected (Not Detect) RSV (PCR) Not detected (Negative) Entero/Rhino (PCR) Detected H (Not Detect) Urine Dip Bedside Urine Glucose Negative Bedside Urine Bilirubin - Negative Bedside Urine Ketone + 15 Urine Specific Davis 1.015 Bedside Urine Occult Blood - Negative Bedside Urine pH 7.0 Bedside Urine Protein - Negative Bedside Urine Urobilinogen - Negative Bedside Urine Nitrite - Negative Bedside Urine Leukocytes - Negative Esterase Imaging Data Chest x-ray: Radiologist's Impression: [address] [id number] XRay Report Signed Patient: Danica Goss MR#: [id number] : 1990 Acct:[id number] Age/Sex: 34 / F Date of Service: 07/12/24 Loc: ED Accession Number: [id number] Procedure: XR chest 1V Ordering Provider: Nba Alvarado D.O. PROCEDURE: XR CHEST 1V INDICATIONS: sob TECHNIQUE: One view of the chest was acquired. COMPARISON: [facility], CT, CT ANGIO CHEST PE PROTOCOL, 07/18/2023, 13:35. [facility], CR, XR CHEST 1V, 07/19/2023, 9:17. [facility], CR, XR CHEST FOR PICC 1V, 07/19/2023, 12:19. [facility], CR, XR CHEST 1V, 07/20/2023, 12:11. [facility], CR, XR CHEST 1V, 07/20/2023, 10:03. FINDINGS: Surgical changes and devices: None. Lungs and pleura: Lungs are clear. Stable elevation of the left hemidiaphragm. No pleural effusions or pneumothorax. Mediastinum: Mediastinal contours appear normal. Heart size is normal. Suspected air-filled esophagus. Bones and chest wall: Prominent air-filled loops of large bowel in the upper abdomen. No suspicious bony lesions. Overlying soft tissues appear unremarkable. IMPRESSION: No acute cardiopulmonary abnormality is seen. MDM Narrative Medical decision making narrative: All lab work, vital signs, nurse triage note, medication list and previous ER visits and all imaging modalities reviewed. Patient received Rocephin 1 g Zithromax 500 mg IV and DuoNeb treatment here. Patient oxygenation did go down to 84% on room air but now on 93% on 2L NC 02. V VBG was obtained which showed a pH of 7.38 pCO2 of 54.8 a PO2 of 30 bicarb of 32 and O2 sat of 55. Ammonia was less than 9 BNP was 555 CK was 124 troponin 1st set was less than 0.012 procalcitonin was 0.066 lactic acid was 1.2 and yet urine drug screen was negative. CT angio showed no pulmonary embolism dissection or aneurysm. CT head without contrast showed periventricular hypodensities of uncertain etiology in a patient this age. And to recommend neurological consultation and MRI of the brain. Chest x-ray showed no acute pulmonary process. Case discussed with our hospitalist Dr. Murali Somers who recommended Neurology consult which is pending and since we have no MRI available on the overnight shift may possibly be able to obtain one in the morning. Differential diagnosis includes COVID, flu, RSV, pneumonia, sepsis, uti, mass, tumor. Case discussed with Neurology at who recommended MRI with and without contrast. <Colleen Parmar, DO - Last Filed: 07/13/24 18:15> Lab Data Labs: Lab Results 07/12/24 07/12/24 07/13/24 Range/Units 22:45 22:50 01:14 WBC 8.5 (4.5-11.0) X10^3/uL RBC 4.76 (4.0-5.2) X10^6/uL Hgb 15.0 (12.0-16.0) g/dL Hct 45.0 (36-46) % MCV 94.6 (80-100) fL MCH 31.5 (26-34) PG MCHC 33.3 (30-36) % RDW 14.6 (11.6-14.8) % Plt Count 157 (150-400) X10^3/uL Neut % (Auto) 90.2 H (50-75) % Lymph % (Auto) 5.3 L (25-40) % [place] % (Auto) 3.7 (3-14) % Eos % (Auto) 0.4 L (2-4) % Baso % (Auto) 0.4 (0-2) % Neut # (Auto) 7700 H (6908-4356) /uL Lymph # (Auto) 400 L (3963-2379) /uL [place] # (Auto) 300 (0-900) /uL Eos # (Auto) 0 (0-450) /uL Baso # (Auto) 0 (0-100) /uL PT 11.7 (9.4-12.5) SECONDS INR 1.0 (0.9-1.3) VBG pH 7.38 (7.33-7.43) VBG pCO2 54.8 H (45-50) mmHg VBG pO2 30 L (35-45) mmHg VBG HCO3 32 H (24-28) mmol/L VBG Total CO2 31 H (24-29) mmol/L VBG O2 Saturation 55 L (70-75) % VBG Base Excess 5.1 H (0-4) mmol/L Sodium 144 (137-145) mmol/L Potassium 4.0 (3.4-5.1) mmol/L Chloride 107 (98-107) mmol/L Carbon Dioxide 29 (22-32) mmol/L BUN 10 (7-17) mg/dL Creatinine 0.35 L (0.52-1.04) mg/dL Estimated GFR > 60 (>60) mL/min BUN/Creatinine Ratio 28.6 H (6-22) Glucose 115 H (70-99) mg/dL Lactate 1.2 (0.7-2.1) mmol/L Calcium 9.1 (8.4-10.2) mg/dL Total Bilirubin 1.0 (0.2-1.3) mg/dL AST 42 H (14-36) IU/L ALT 30 (<35) IU/L Alkaline Phosphatase 72 (38-126) U/L Ammonia (9-30) umol/L Total Creatine Kinase 124 (30-135) U/L Troponin I < 0.012 (0.01-0.034) ng/mL NT-Pro-B Natriuret Pep 555 H (<125) pg/mL Total Protein 7.9 (6.3-8.2) g/dL Albumin 4.6 (3.5-5.0) g/dL Globulin 3.3 (1.7-4.1) g/dL Albumin/Globulin Ratio 1.4 (1.0-2.8) Procalcitonin 0.066 (<0.5) ng/mL TSH 0.915 (0.47-4.68) uIU/mL U Opiates 300ng/mL cut (Negative) Ur Oxycodone Screen (Negative) Urine Methadone Screen (Negative) Ur Barbiturates Screen (Negative) U Tricyclic Antidepress (Negative) Ur Phencyclidine Scrn (Negative) Ur Amphetamines Screen (Negative) U Methamphetamines Scrn (Negative) Ur MDMA Scrn (Ecstasy) (Negative) U Benzodiazepines Scrn (Negative) Urine Cocaine Screen (Negative) U Marijuana (THC) Screen (Negative) Urine pH Urine Specific [place] Ur Creatinine Chlamy pneumoniae PCR (Not Detect) Adenovirus (PCR) (Not Detect) B. pertussis DNA (PCR) (Not Detect) B.parapertussis DNA PCR (Not Detecte) Coronavirus OC43 (PCR) (Not Detect) Coronavirus HKU1 (PCR) (Not Detect) Coronavirus 229E (PCR) (Not Detect) SARS-CoV-2 (PCR) Negative (Negative) Coronavirus NL63 (PCR) (Not Detect) Human Metapneumovir PCR (Not Detect) Influenza A (RT-PCR) Flu a negative (NEGATIVE) Influenza Type A (PCR) (Not Detect) Influenza B (RT-PCR) Flu b negative (NEGATIVE) Influenza Type B (PCR) (Not Detect) M. pneumoniae (PCR) (Not Detect) Parainfluenza 1 (PCR) (Not Detect) Parainfluenza 2 (PCR) (Not Detect) Parainfluenza 3 (PCR) (Not Detect) Parainfluenza 4 (PCR) (Not Detect) RSV (PCR) Negative (Negative) Entero/Rhino (PCR) (Not Detect) 07/13/24 07/13/24 07/13/24 Range/Units 02:30 03:33 09:03 WBC (4.5-11.0) X10^3/uL RBC (4.0-5.2) X10^6/uL Hgb (12.0-16.0) g/dL Hct (36-46) % MCV (80-100) fL MCH (26-34) PG MCHC (30-36) % RDW (11.6-14.8) % Plt Count (150-400) X10^3/uL Neut % (Auto) (50-75) % Lymph % (Auto) (25-40) % [place] % (Auto) (3-14) % Eos % (Auto) (2-4) % Baso % (Auto) (0-2) % Neut # (Auto) (8921-7678) /uL Lymph # (Auto) (3884-9597) /uL [place] # (Auto) (0-900) /uL Eos # (Auto) (0-450) /uL Baso # (Auto) (0-100) /uL PT (9.4-12.5) SECONDS INR (0.9-1.3) VBG pH (7.33-7.43) VBG pCO2 (45-50) mmHg VBG pO2 (35-45) mmHg VBG HCO3 (24-28) mmol/L VBG Total CO2 (24-29) mmol/L VBG O2 Saturation (70-75) % VBG Base Excess (0-4) mmol/L Sodium (137-145) mmol/L Potassium (3.4-5.1) mmol/L Chloride (98-107) mmol/L Carbon Dioxide (22-32) mmol/L BUN (7-17) mg/dL Creatinine (0.52-1.04) mg/dL Estimated GFR (>60) mL/min BUN/Creatinine Ratio (6-22) Glucose (70-99) mg/dL Lactate (0.7-2.1) mmol/L Calcium (8.4-10.2) mg/dL Total Bilirubin (0.2-1.3) mg/dL AST (14-36) IU/L ALT (<35) IU/L Alkaline Phosphatase (38-126) U/L Ammonia < 9 L (9-30) umol/L Total Creatine Kinase (30-135) U/L Troponin I (0.01-0.034) ng/mL NT-Pro-B Natriuret Pep (<125) pg/mL Total Protein (6.3-8.2) g/dL Albumin (3.5-5.0) g/dL Globulin (1.7-4.1) g/dL Albumin/Globulin Ratio (1.0-2.8) Procalcitonin (<0.5) ng/mL TSH (0.47-4.68) uIU/mL U Opiates 300ng/mL cut Negative (Negative) Ur Oxycodone Screen Negative (Negative) Urine Methadone Screen Negative (Negative) Ur Barbiturates Screen Negative (Negative) U Tricyclic Antidepress Negative (Negative) Ur Phencyclidine Scrn Negative (Negative) Ur Amphetamines Screen Negative (Negative) U Methamphetamines Scrn Negative (Negative) Ur MDMA Scrn (Ecstasy) Negative (Negative) U Benzodiazepines Scrn Negative (Negative) Urine Cocaine Screen Negative (Negative) U Marijuana (THC) Screen Negative (Negative) Urine pH TNP Urine Specific [place] TNP Ur Creatinine TNP Chlamy pneumoniae PCR Not detected (Not Detect) Adenovirus (PCR) Not detected (Not Detect) B. pertussis DNA (PCR) Not detected (Not Detect) B.parapertussis DNA PCR Not detected (Not Detecte) Coronavirus OC43 (PCR) Not detected (Not Detect) Coronavirus HKU1 (PCR) Not detected (Not Detect) Coronavirus 229E (PCR) Not detected (Not Detect) SARS-CoV-2 (PCR) Not detected (Negative) Coronavirus NL63 (PCR) Not detected (Not Detect) Human Metapneumovir PCR Not detected (Not Detect) Influenza A (RT-PCR) (NEGATIVE) Influenza Type A (PCR) Not detected (Not Detect) Influenza B (RT-PCR) (NEGATIVE) Influenza Type B (PCR) Not detected (Not Detect) M. pneumoniae (PCR) Not detected (Not Detect) Parainfluenza 1 (PCR) Not detected (Not Detect) Parainfluenza 2 (PCR) Not detected (Not Detect) Parainfluenza 3 (PCR) Not detected (Not Detect) Parainfluenza 4 (PCR) Not detected (Not Detect) RSV (PCR) Not detected (Negative) Entero/Rhino (PCR) Detected H (Not Detect) Urine Dip Bedside Urine Glucose Negative Bedside Urine Bilirubin - Negative Bedside Urine Ketone + 15 Urine Specific Davis 1.015 Bedside Urine Occult Blood - Negative Bedside Urine pH 7.0 Bedside Urine Protein - Negative Bedside Urine Urobilinogen - Negative Bedside Urine Nitrite - Negative Bedside Urine Leukocytes - Negative Esterase Imaging Data CT scan - abdomen/pelvis: Radiologist's Impression: PROCEDURE: CT ABDOMEN PELVIS W CON INDICATIONS: ? sbo vs ileus TECHNIQUE: After the administration of intravenous contrast, axial sections acquired from the lung bases to the pubic symphysis. Coronal and sagittal reformats were performed. For radiation dose reduction, the following was used: automated exposure control, adjustment of mA and/or kV according to patient size. COMPARISON: None. FINDINGS: Image quality: Diagnostic. Lower Chest: Dense bibasilar atelectasis and consolidation. ABDOMEN: Liver: No solid mass. Gallbladder: No radiopaque gallstones or wall thickening. Biliary ducts: No biliary dilation. Pancreas: No ductal dilation. Spleen: Size is within normal limits. Adrenal Glands: No adrenal nodules. Kidneys and Ureters: No hydronephrosis. No solid mass. No complex renal cystic lesion which requires follow up. Stomach and Bowel: Normal colonic caliber, without significant wall thickening. Normal appendix. At least moderate fecal load. Peritoneum: No abnormal intraperitoneal fluid. No free air. Ventral Wall: No significant ventral hernia. Abdominal Nodes: No retroperitoneal or mesenteric adenopathy by size criteria. Vessels: Aorta and inferior vena cava are normal in size. PELVIS: Pelvic Organs: Unremarkable. Bladder: No bladder wall thickening, accounting for underdistention. Pelvic Nodes: No enlarged lymph nodes. Miscellaneous: No inguinal hernias are seen. Bones: No aggressive osseous abnormality. IMPRESSION: 1. Dense bibasilar atelectasis versus consolidation. 2. Dilated distal esophagus containing fluid, consistent with reflux. Consider aspiration pneumonia. 3. No evidence of bowel obstruction. No acute abdominal process identified. Dictated by: Rajinder Shields M.D. on 07/13/2024 at 9:36 CT scan - chest: Radiologist's Impression: PROCEDURE: CT ANGIO CHEST PE PROTOCOL INDICATIONS: sob 88% RA/cough TECHNIQUE: After the administration of intravenous contrast, 2 mm thick sections acquired from the pulmonary apices to the posterior costophrenic angles. 3-dimensional maximum intensity projection (MIP) coronal and sagittal reformats were then acquired through the thorax. For radiation dose reduction, the following was used: automated exposure control, adjustment of mA and/or kV according to patient size. COMPARISON: [facility], CT, CT ANGIO CHEST PE PROTOCOL, 07/18/2023, 13:35. FINDINGS: Image quality: Motion degraded Lungs and pleura: Bibasilar atelectasis and opacities are present. No pleural effusions. Mediastinum, heart, and esophagus: No pulmonary embolism. Distended esophagus with fluid. No pathologic lymph nodes by size criteria Chest wall and thyroid: Unremarkable Upper abdomen: Unremarkable on this arterial phase study Bones: There are degenerative changes. IMPRESSION: No pulmonary embolus. Bibasilar opacities, which may represent atelectasis and/or aspiration. Esophagus is moderately distended with fluid, correlate for any history of achalasia or other muscular dysmotility abnormalities. Communicated to Dr. Parmar. Dictated by: Jose Houser M.D. on 07/13/2024 at 7:59 Approved by: Jose Houser M.D. on 07/13/2024 at 8:23 CT scan - head: Radiologist's Impression: PROCEDURE: CT HEAD/BRAIN WO CON INDICATIONS: lethargic weak TECHNIQUE: Noncontrast 4.5 mm thick angled axial sections acquired from the foramen magnum to the vertex, with coronal and sagittal reformats. For radiation dose reduction, the following was used: automated exposure control, adjustment of mA and/or kV according to patient size. COMPARISON: None. FINDINGS: Image quality: Diagnostic. CSF spaces: Basal cisterns are patent. No extra-axial fluid collections. Ventricles are normal in size and shape. Brain: No midline shift. No intracranial mass effect or hemorrhage. Jarquin- white matter interface is normal. There are impressive periventricular hypodensities bilaterally in a relatively symmetric distribution, somewhat greater on the right left. These are advanced for a patient this age. They are of uncertain etiology. Skull and face: Calvarium and visualized facial bones are intact, without suspicious lesions. Sinuses: Visualized sinuses and mastoids are clear. IMPRESSION: Advanced periventricular deep white matter hypodensities for patient age, of uncertain etiology. Recommend brain MRI with and without contrast. Comment: Final report is concordant with preliminary interpretation provided by [facility]. Dictated by: Rajinder Shields M.D. on 07/13/2024 at 7:43 Approved by: Rajinder Shields M.D. on 07/13/2024 at 7:46 MR Brain: Radiologist's Impression: PROCEDURE: MR HEAD/BRAIN WO CON INDICATIONS: Per CT scan and Neurologist Recommendation TECHNIQUE: Noncontrast axial T1 spin echo, axial T2 fast spin echo, sagittal and axial FLAIR, coronal T2 fast spin echo, axial gradient echo, axial diffusion and ADC through the brain. COMPARISON: [facility], CT, CT HEAD/BRAIN WO CON, 07/13/2024, 3:10. FINDINGS: Image quality: Motion is present limiting areas of fine detail evaluation. CSF Spaces: Basal cisterns are patent. No extra-axial fluid collections. Ventricles are normal in size and shape. Brain: Multifocal areas of periventricular and subcortical white matter hyperintensity are present. There is suggestion of abnormal signal areas of abnormal signal within the corpus callosum. No midline shift. No evidence of acute hemorrhage. Skull and face: Calvarium has normal marrow signal. Orbits appear normal. Sinuses: Sinuses and mastoids are clear. IMPRESSION: Extensive periventricular and subcortical white matter hyperintensities as above with suggestion of small areas of abnormal signal within the corpus callosum. Given patient's age, etiology such as demyelinating disease should be considered. In addition, vasculitis or other etiology of infection/inflammation should be considered. Further evaluation with MR brain with contrast is recommended as patient can tolerate. Dictated by: Tamra Campo M.D. on 07/13/2024 at 11:32 ECG Data Interpretation: Sinus rhythm rate 78 W[place] interval 260 QRS to 12 QTC 470 wide complex MDM Narrative Medical decision making narrative: All lab work, vital signs, nurse triage note, medication list and previous ER visits and all imaging modalities reviewed. Patient received Rocephin 1 g Zithromax 500 mg IV and DuoNeb treatment here. Patient oxygenation did go down to 84% on room air but now on 93% on 2L NC 02. V VBG was obtained which showed a pH of 7.38 pCO2 of 54.8 a PO2 of 30 bicarb of 32 and O2 sat of 55. Ammonia was less than 9 BNP was 555 CK was 124 troponin 1st set was less than 0.012 procalcitonin was 0.066 lactic acid was 1.2 and yet urine drug screen was negative. CT angio showed no pulmonary embolism dissection or aneurysm. CT head without contrast showed periventricular hypodensities of uncertain etiology in a patient this age. And to recommend neurological consultation and MRI of the brain. Chest x-ray showed no acute pulmonary process. Case discussed with our hospitalist Dr. Murali Somers who recommended Neurology consult which is pending and since we have no MRI available on the overnight shift may possibly be able to obtain one in the morning. Differential diagnosis includes COVID, flu, RSV, pneumonia, sepsis, uti, mass, tumor. Case discussed with Neurology at who recommended MRI with and without contrast. 0730 Dr. Parmar patient signed out to me by , seen evaluated patient myself. She remains on oxygen clearly weak occasionally has some muscle spasms. [age]-year-old with history of muscular dystrophy, presenting today with increasing weakness hypoxia. She is requiring 2-3 L of oxygen. He had received call from Radiology concern for significantly distended esophagus some concern for aspiration. X-ray is clear blood work is surprisingly overall reassuring no significant leukocytosis or elevated lactate. Neurology wanting an MRI due to CTA results. She was previously required intubation long hospital stays. Dr. Fisher in ED to see and evaluate patient. Possible concern or bowel obstruction and recommended a CT while we wait for the MRI. CT does not show any evidence bowel obstruction or ileus MRI shows probable demyelinating disease At this time hemodynamically stable blood pressure is soft with a systolic in the high 90s which dad reports is about her baseline. She was still requiring 2-[address] Fisher accepts patient Discharge Plan Departure Patient Disposition: Admitted As Inpatient Clinical Impression: Aspiration pneumonia Admit Date/Time: 07/13/24 11:58 Admit Provider: Vaughn Fisher
[2024-07-12 23:01] LABS: Add Manual Diff / Slide Review NO; Basophils Absolute Auto 0 /uL (0-100); Basophils Percent Auto 0.4 % (0-2); Eosinophils Absolute Auto 0 /uL (0-450); Eosinophils Percent Auto 0.4 % (2-4); Lymphocytes Absolute Auto 400 /uL (1100-4500); Lymphocytes Percent Auto 5.3 % (25-40); Mean Corpuscular HGB Conc 33.3 % (30-36); Mean Corpuscular Hemoglobin 31.5 PG (26-34); Mean Corpuscular Volume 94.6 fL (80-100); Monocytes Absolute Auto 300 /uL (0-900); Monocytes Percent Auto 3.7 % (3-14); Neutrophils Absolute Auto 7700 /uL (1500-7000); Neutrophils Percent Auto 90.2 % (50-75); Platelet Count 157 X10^3/uL (150-400); Red Blood Cell Count 4.76 X10^6/uL (4.0-5.2); Red Cell Distribution Width 14.6 % (11.6-14.8); White Blood Cell Count 8.5 X10^3/uL (4.5-11.0)
[2024-07-12 23:06] LABS: Prothrombin Time 11.7 SECONDS (9.4-12.5)
[2024-07-12 23:16] LABS: Lactate (Lactic Acid) 1.2 mmol/L (0.7-2.1)
[2024-07-12 23:17] LABS: Alanine Aminotransferase 30 IU/L (<35); Albumin 4.6 g/dL (3.5-5.0); Albumin Globulin Ratio 1.4 (1.0-2.8); Alkaline Phosphatase 72 U/L (38-126); Aspartate Aminotransferase 42 IU/L (14-36); BUN Creatinine Ratio 28.6 (6-22); Blood Urea Nitrogen 10 mg/dL (7-17); Calcium 9.1 mg/dL (8.4-10.2); Carbon Dioxide 29 mmol/L (22-32); Chloride 107 mmol/L (98-107); Estimated Glomerular Filt Rate > 60 mL/min (>60); Globulin 3.3 g/dL (1.7-4.1); Glucose 115 mg/dL (70-99); HEMOLYSIS < 15 (0-50); Sodium 144 mmol/L (137-145); Total Protein 7.9 g/dL (6.3-8.2)
[2024-07-12 23:28] LABS: NT-proBNP (BNP-Adult 18+) 555 pg/mL (<125); Troponin I < 0.012 ng/mL (0.01-0.034)
[2024-07-12 23:35] LABS: Influenza A - CEPHEID Flu A NEGATIVE (NEGATIVE); Influenza B - CEPHEID Flu B NEGATIVE (NEGATIVE); Respiratory Syncytial Virus Negative (Negative)
[2024-07-12 23:37] LABS: COVID-19 CEPHEID 4-PLEX PCR Negative (Negative)
[2024-07-13] VITALS (50 sets, daily range): BP systolic 83–120; BP diastolic 54–72; PULSE 74–93; RESP 20–28; TEMP 37.1–37.2; O2SAT 84–97; BMI 22.4
[2024-07-13] MEDS: cefTRIAXone 1,000 MG in SODIUM CHLORIDE 0.9% 100 ML 200 MG IV (00:31)
[2024-07-13] MEDS: AZITHROMYCIN 500 MG in DEXTROSE 5% IN WATER 250 ML 250 MG IV (01:02)
--- NOTE | 2024-07-13 01:03 | DI.CT.S_ITS ---
PROCEDURE: CT ANGIO CHEST PE PROTOCOL INDICATIONS: sob 88% RA/cough TECHNIQUE: After the administration of intravenous contrast, 2 mm thick sections acquired from the pulmonary apices to the posterior costophrenic angles. 3-dimensional maximum intensity projection (MIP) coronal and sagittal reformats were then acquired through the thorax. For radiation dose reduction, the following was used: automated exposure control, adjustment of mA and/or kV according to patient size. COMPARISON: [facility], CT, CT ANGIO CHEST PE PROTOCOL, 07/18/2023, 13:35. FINDINGS: Image quality: Motion degraded Lungs and pleura: Bibasilar atelectasis and opacities are present. No pleural effusions. Mediastinum, heart, and esophagus: No pulmonary embolism. Distended esophagus with fluid. No pathologic lymph nodes by size criteria Chest wall and thyroid: Unremarkable Upper abdomen: Unremarkable on this arterial phase study Bones: There are degenerative changes. IMPRESSION: No pulmonary embolus. Bibasilar opacities, which may represent atelectasis and/or aspiration. Esophagus is moderately distended with fluid, correlate for any history of achalasia or other muscular dysmotility abnormalities. Communicated to Dr. Parmar. Dictated by: Jose Houser M.D. on 07/13/2024 at 7:59 Approved by: Jose Houser M.D. on 07/13/2024 at 8:23
[2024-07-13 01:19] LABS: Base Excess VBG 5.1 mmol/L (0-4); HCO3 VBG 32 mmol/L (24-28); Oxygen Saturation VBG 55 % (70-75); PCO2 VBG 54.8 mmHg (45-50); PO2 VBG 30 mmHg (35-45); Total CO2 VBG 31 mmol/L (24-29); pH VBG 7.38 (7.33-7.43)
[2024-07-13 02:07] LABS: Procalcitonin 0.066 ng/mL (<0.5)
[2024-07-13] MEDS: ALBUTEROL/IPRATROPIUM 3 ML AMPUL INH (02:32)
--- NOTE | 2024-07-13 02:48 | DI.CT.S_ITS ---
PROCEDURE: CT HEAD/BRAIN WO CON INDICATIONS: lethargic weak TECHNIQUE: Noncontrast 4.5 mm thick angled axial sections acquired from the foramen magnum to the vertex, with coronal and sagittal reformats. For radiation dose reduction, the following was used: automated exposure control, adjustment of mA and/or kV according to patient size. COMPARISON: None. FINDINGS: Image quality: Diagnostic. CSF spaces: Basal cisterns are patent. No extra-axial fluid collections. Ventricles are normal in size and shape. Brain: No midline shift. No intracranial mass effect or hemorrhage. Jarquin-white matter interface is normal. There are impressive periventricular hypodensities bilaterally in a relatively symmetric distribution, somewhat greater on the right left. These are advanced for a patient this age. They are of uncertain etiology. Skull and face: Calvarium and visualized facial bones are intact, without suspicious lesions. Sinuses: Visualized sinuses and mastoids are clear. IMPRESSION: Advanced periventricular deep white matter hypodensities for patient age, of uncertain etiology. Recommend brain MRI with and without contrast. Comment: Final report is concordant with preliminary interpretation provided by [facility]. Dictated by: Rajinder Shields M.D. on 07/13/2024 at 7:43 Approved by: Rajinder Shields M.D. on 07/13/2024 at 7:46
[2024-07-13 03:18] LABS: Creatine Kinase 124 U/L (30-135)
[2024-07-13 03:24] LABS: UR Morphine/Opiate cutoff 300 Negative (Negative); Urine Amphetamines Negative (Negative); Urine Barbiturates Negative (Negative); Urine Benzodiazepines Negative (Negative); Urine Cocaine Negative (Negative); Urine MDMA Negative (Negative); Urine Methadone Negative (Negative); Urine Methamphetamines Negative (Negative); Urine Oxycodone Negative (Negative); Urine Phencyclidine Negative (Negative); Urine Tetrahydrocannabinol Negative (Negative); Urine Tricyclic Antidepressant Negative (Negative)
[2024-07-13 04:10] LABS: Thyroid Stimulating Hormone 0.915 uIU/mL (0.47-4.68)
--- NOTE | 2024-07-13 04:12 | PC.NURSE ---
Assisted with Tele-medicine admission with Dr. Somers.
[2024-07-13 05:28] LABS: Ammonia (NH3) < 9 umol/L (9-30)
--- NOTE | 2024-07-13 09:05 | DI.CT.S_ITS ---
PROCEDURE: CT ABDOMEN PELVIS W CON INDICATIONS: ? sbo vs ileus TECHNIQUE: After the administration of intravenous contrast, axial sections acquired from the lung bases to the pubic symphysis. Coronal and sagittal reformats were performed. For radiation dose reduction, the following was used: automated exposure control, adjustment of mA and/or kV according to patient size. COMPARISON: None. FINDINGS: Image quality: Diagnostic. Lower Chest: Dense bibasilar atelectasis and consolidation. ABDOMEN: Liver: No solid mass. Gallbladder: No radiopaque gallstones or wall thickening. Biliary ducts: No biliary dilation. Pancreas: No ductal dilation. Spleen: Size is within normal limits. Adrenal Glands: No adrenal nodules. Kidneys and Ureters: No hydronephrosis. No solid mass. No complex renal cystic lesion which requires follow up. Stomach and Bowel: Normal colonic caliber, without significant wall thickening. Normal appendix. At least moderate fecal load. Peritoneum: No abnormal intraperitoneal fluid. No free air. Ventral Wall: No significant ventral hernia. Abdominal Nodes: No retroperitoneal or mesenteric adenopathy by size criteria. Vessels: Aorta and inferior vena cava are normal in size. PELVIS: Pelvic Organs: Unremarkable. Bladder: No bladder wall thickening, accounting for underdistention. Pelvic Nodes: No enlarged lymph nodes. Miscellaneous: No inguinal hernias are seen. Bones: No aggressive osseous abnormality. IMPRESSION: 1. Dense bibasilar atelectasis versus consolidation. 2. Dilated distal esophagus containing fluid, consistent with reflux. Consider aspiration pneumonia. 3. No evidence of bowel obstruction. No acute abdominal process identified. Dictated by: Rajinder Shields M.D. on 07/13/2024 at 9:36 Approved by: Rajinder Shields M.D. on 07/13/2024 at 9:39
[2024-07-13 10:01] LABS: Adenovirus Not Detected (Not Detect); B. parapertussis Not Detected (Not Detecte); Bordetella pertussis Not Detected (Not Detect); Chlamydophila pneumoniae Not Detected (Not Detect); Coronavirus 229E Not Detected (Not Detect); Coronavirus HKU1 Not Detected (Not Detect); Coronavirus NL 63 Not Detected (Not Detect); Coronavirus OC43 Not Detected (Not Detect); Human Metapneumovirus Not Detected (Not Detect); Human Rhinovirus/Enterovirus Detected (Not Detect); Influenza A Not Detected (Not Detect); Influenza B Not Detected (Not Detect); Mycoplasma pneumoniae Not Detected (Not Detect); Parainfluenza Virus 1 Not Detected (Not Detect); Parainfluenza Virus 2 Not Detected (Not Detect); Parainfluenza Virus 3 Not Detected (Not Detect); Parainfluenza Virus 4 Not Detected (Not Detect); Respiratory Syncytial Virus Not Detected (Not Detect); SARS- CoV-2 Not Detected (Not Detecte)
--- NOTE | 2024-07-13 10:36 | DI.MRI.S_ITS ---
PROCEDURE: MR HEAD/BRAIN WO CON INDICATIONS: Per CT scan and Neurologist Recommendation TECHNIQUE: Noncontrast axial T1 spin echo, axial T2 fast spin echo, sagittal and axial FLAIR, coronal T2 fast spin echo, axial gradient echo, axial diffusion and ADC through the brain. COMPARISON: [facility], CT, CT HEAD/BRAIN WO CON, 07/13/2024, 3:10. FINDINGS: Image quality: Motion is present limiting areas of fine detail evaluation. CSF Spaces: Basal cisterns are patent. No extra-axial fluid collections. Ventricles are normal in size and shape. Brain: Multifocal areas of periventricular and subcortical white matter hyperintensity are present. There is suggestion of abnormal signal areas of abnormal signal within the corpus callosum. No midline shift. No evidence of acute hemorrhage. Skull and face: Calvarium has normal marrow signal. Orbits appear normal. Sinuses: Sinuses and mastoids are clear. IMPRESSION: Extensive periventricular and subcortical white matter hyperintensities as above with suggestion of small areas of abnormal signal within the corpus callosum. Given patient's age, etiology such as demyelinating disease should be considered. In addition, vasculitis or other etiology of infection/inflammation should be considered. Further evaluation with MR brain with contrast is recommended as patient can tolerate. Dictated by: Tamra Campo M.D. on 07/13/2024 at 11:32 Approved by: Tamra Campo M.D. on 07/13/2024 at 11:40
--- NOTE | 2024-07-13 12:40 | PC.NURSE ---
Report given to Sandi FURNITURE REPRODUCER. Pt taken upstairs by Nazia WORKMAN with 3L NC. Pt brief checked prior to exiting dept & clean/dry.
--- NOTE | 2024-07-13 13:00 | P.HP_ITS ---
History of Present Illness History of Present Illness Date Patient Seen: 07/13/24 Chief complaint: oxygen 92, cough, not feeling well Narrative: Chief complaint: Not feeling well lethargy poor appetite recurrent vomiting and aspiration pneumonia History of present illness: 34-year-old with muscular dystrophy limited cognitive capacity at 3 days of vomiting poor p.o. intake for lunch and dinner lethargy and decreased interaction with family. Patient is total care and under the stewardship of her parents. Patient has had a history of respiratory failure and prior intubation secondary to COVID. Family is familiar with these presentation which typically means infection and brought the person to the emergency room Findings in the emergency department were significant for: Obviously ill vomiting and drooling contracted and minimally interactive female. 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 voluminous salivation HEENT poor oral care Heart rate and rhythm regular Lungs with coarse rhonchi throughout Abdomen soft few Bowel sounds nontender Extremities contracted no edema For objective laboratory and imaging findings see bottom of the note: Assessment and plan: Vomiting with aspiration pneumonia potentially triggered by gastrointestinal/respiratory infection with enterovirus/rhinovirus -IV Zosyn hydration with intravenous fluids -monitor recovery and initiate diet when patient is less lethargic -Keep NPO for now DVT prophylaxis:-Lovenox Code status: Full code blue Time based codin minutes spent with patient and on the chart (including review of chart, obtaining history, exam, reviewing outside data, placing orders, documenting exam and treatment plan, and counseling patient) PFSH Medical History Muscular dystrophy Surgical History S/P bronchoscopy Social History household members: family Smoking Status: Never smoker alcohol intake: never Meds Home Medications and Allergies Home Medications Medication Instructions Recorded Confirmed Type No Known Home Medications 07/13/24 07/13/24 History Allergies Allergy/AdvReac Type Severity Reaction Status Date / Time No Known Drug Allergies Allergy Verified 07/12/24 21:50 Exam Vital Signs (past 8 hours): - 07/13/24 05:30 07/13/24 05:30 07/13/24 06:00 Pulse Rate 84 79 Blood Pressure 113/64 Pulse Oximetry 94 94 Oxygen Delivery Method Oxygen Flow Rate 07/13/24 06:00 07/13/24 06:30 07/13/24 06:30 Pulse Rate 85 Blood Pressure 103/63 106/60 Pulse Oximetry 93 Oxygen Delivery Method Oxygen Flow Rate 07/13/24 07:00 07/13/24 07:00 07/13/24 07:30 Pulse Rate 74 79 Blood Pressure 102/59 L Pulse Oximetry 95 97 Oxygen Delivery Method Oxygen Flow Rate 07/13/24 07:30 07/13/24 08:00 07/13/24 08:00 Pulse Rate 82 Blood Pressure 96/58 L 100/62 Pulse Oximetry 97 Oxygen Delivery Method Oxygen Flow Rate 07/13/24 08:30 07/13/24 08:30 07/13/24 09:00 Pulse Rate 87 86 Blood Pressure 110/62 Pulse Oximetry 95 94 Oxygen Delivery Method Nasal Cannula Oxygen Flow Rate 3 07/13/24 09:00 07/13/24 09:23 07/13/24 09:23 Pulse Rate 82 Blood Pressure 102/64 93/60 Pulse Oximetry 91 Oxygen Delivery Method Oxygen Flow Rate 07/13/24 09:30 07/13/24 09:30 07/13/24 10:00 Pulse Rate 82 83 Blood Pressure 103/59 L Pulse Oximetry 94 92 Oxygen Delivery Method Oxygen Flow Rate 07/13/24 10:00 07/13/24 10:38 07/13/24 10:40 Pulse Rate 78 78 Blood Pressure 92/61 Pulse Oximetry 92 92 Oxygen Delivery Method Oxygen Flow Rate 07/13/24 10:40 07/13/24 11:00 07/13/24 11:00 Pulse Rate 87 Blood Pressure 113/70 97/59 L Pulse Oximetry 92 Oxygen Delivery Method Oxygen Flow Rate 07/13/24 11:30 07/13/24 11:30 07/13/24 12:00 Pulse Rate 79 86 Blood Pressure 99/58 L Pulse Oximetry 93 93 Oxygen Delivery Method Oxygen Flow Rate 07/13/24 12:00 07/13/24 12:30 07/13/24 12:30 Pulse Rate 79 Blood Pressure 98/61 99/60 Pulse Oximetry 94 Oxygen Delivery Method Oxygen Flow Rate Fraction of Inspired Oxygen 21 SaO2/FiO2 Ratio 433 Oxygen Delivery Method Nasal Cannula Oxygen Flow Rate 3 Objective Labs 07/12/24 22:45 07/12/24 22:45 Labs: Laboratory Results - last 24 hr 07/12/24 07/12/24 07/13/24 22:45 22:50 01:14 WBC 8.5 RBC 4.76 Hgb 15.0 Hct 45.0 MCV 94.6 MCH 31.5 MCHC 33.3 RDW 14.6 Plt Count 157 Neut % (Auto) 90.2 H Lymph % (Auto) 5.3 L [place] % (Auto) 3.7 Eos % (Auto) 0.4 L Baso % (Auto) 0.4 Neut # (Auto) 7700 H Lymph # (Auto) 400 L [place] # (Auto) 300 Eos # (Auto) 0 Baso # (Auto) 0 PT 11.7 INR 1.0 VBG pH 7.38 VBG pCO2 54.8 H VBG pO2 30 L VBG HCO3 32 H VBG Total CO2 31 H VBG O2 Saturation 55 L VBG Base Excess 5.1 H Sodium 144 Potassium 4.0 Chloride 107 Carbon Dioxide 29 BUN 10 Creatinine 0.35 L Estimated GFR > 60 BUN/Creatinine Ratio 28.6 H Glucose 115 H Lactate 1.2 Calcium 9.1 Total Bilirubin 1.0 AST 42 H ALT 30 Alkaline Phosphatase 72 Ammonia Total Creatine Kinase 124 Troponin I < 0.012 NT-Pro-B Natriuret Pep 555 H Total Protein 7.9 Albumin 4.6 Globulin 3.3 Albumin/Globulin Ratio 1.4 Procalcitonin 0.066 TSH 0.915 U Opiates 300ng/mL cut Ur Oxycodone Screen Urine Methadone Screen Ur Barbiturates Screen U Tricyclic Antidepress Ur Phencyclidine Scrn Ur Amphetamines Screen U Methamphetamines Scrn Ur MDMA Scrn (Ecstasy) U Benzodiazepines Scrn Urine Cocaine Screen U Marijuana (THC) Screen Urine pH Urine Specific [place] Ur Creatinine Chlamy pneumoniae PCR Adenovirus (PCR) B. pertussis DNA (PCR) B.parapertussis DNA PCR Coronavirus OC43 (PCR) Coronavirus HKU1 (PCR) Coronavirus 229E (PCR) SARS-CoV-2 (PCR) Negative Coronavirus NL63 (PCR) Human Metapneumovir PCR Influenza A (RT-PCR) Flu a negative Influenza Type A (PCR) Influenza B (RT-PCR) Flu b negative Influenza Type B (PCR) M. pneumoniae (PCR) Parainfluenza 1 (PCR) Parainfluenza 2 (PCR) Parainfluenza 3 (PCR) Parainfluenza 4 (PCR) RSV (PCR) Negative Entero/Rhino (PCR) 07/13/24 07/13/24 07/13/24 02:30 03:33 09:03 WBC RBC Hgb Hct MCV MCH MCHC RDW Plt Count Neut % (Auto) Lymph % (Auto) [place] % (Auto) Eos % (Auto) Baso % (Auto) Neut # (Auto) Lymph # (Auto) [place] # (Auto) Eos # (Auto) Baso # (Auto) PT INR VBG pH VBG pCO2 VBG pO2 VBG HCO3 VBG Total CO2 VBG O2 Saturation VBG Base Excess Sodium Potassium Chloride Carbon Dioxide BUN Creatinine Estimated GFR BUN/Creatinine Ratio Glucose Lactate Calcium Total Bilirubin AST ALT Alkaline Phosphatase Ammonia < 9 L Total Creatine Kinase Troponin I NT-Pro-B Natriuret Pep Total Protein Albumin Globulin Albumin/Globulin Ratio Procalcitonin TSH U Opiates 300ng/mL cut Negative Ur Oxycodone Screen Negative Urine Methadone Screen Negative Ur Barbiturates Screen Negative U Tricyclic Antidepress Negative Ur Phencyclidine Scrn Negative Ur Amphetamines Screen Negative U Methamphetamines Scrn Negative Ur MDMA Scrn (Ecstasy) Negative U Benzodiazepines Scrn Negative Urine Cocaine Screen Negative U Marijuana (THC) Screen Negative Urine pH TNP Urine Specific [place] TNP Ur Creatinine TNP Chlamy pneumoniae PCR Not detected Adenovirus (PCR) Not detected B. pertussis DNA (PCR) Not detected B.parapertussis DNA PCR Not detected Coronavirus OC43 (PCR) Not detected Coronavirus HKU1 (PCR) Not detected Coronavirus 229E (PCR) Not detected SARS-CoV-2 (PCR) Not detected Coronavirus NL63 (PCR) Not detected Human Metapneumovir PCR Not detected Influenza A (RT-PCR) Influenza Type A (PCR) Not detected Influenza B (RT-PCR) Influenza Type B (PCR) Not detected M. pneumoniae (PCR) Not detected Parainfluenza 1 (PCR) Not detected Parainfluenza 2 (PCR) Not detected Parainfluenza 3 (PCR) Not detected Parainfluenza 4 (PCR) Not detected RSV (PCR) Not detected Entero/Rhino (PCR) Detected H Assessment & Plan Time-Based Coding :: [TOTAL MINUTES] spent with patient and on the chart (including review of chart, obtaining history, exam, reviewing outside data, placing orders, documenting exam and treatment plan, and counseling patient) on [DATE].
[2024-07-13] MEDS: PIPERACILLIN/TAZO 3.375 GM in SODIUM CHLORIDE 0.9% 100 ML IV ×2 (13:43→20:34)
[2024-07-13] MEDS: SODIUM CHLORIDE 0.9% 1,000 ML 100 ML IV (13:44)
[2024-07-13 14:59] LABS: MRSA (Nasal) PCR NOT DETECTED (Not Detect)
--- NOTE | 2024-07-13 17:11 | PC.ADMIT ---
[facility] Admission Note: Pt arrived to room 227 from ED on stretcher at approximately 1245. Slide board utilized during transfer to room 227 bed. Pt A&O to self and situation, delayed speech present and is baseline per parents who are at bedside. Pt able to communicate needs when asked and prompted. O2 3L NC 92-95%. Pt oriented to room. Call light within reach and pt able to use. Parents at bedside. Care ongoing. The patient,Danica Goss,34 y/o, was given written information regarding hospital policies, unit procedures and contact persons. Patient's smoking status: Never smoker. Vital Signs - 8 hr 07/13/24 09:23 07/13/24 09:23 07/13/24 09:30 Temperature Pulse Rate 82 82 Respiratory Rate Blood Pressure 93/60 Pulse Oximetry 91 94 Oxygen Delivery Method Oxygen Flow Rate 07/13/24 09:30 07/13/24 10:00 07/13/24 10:00 Temperature Pulse Rate 83 Respiratory Rate Blood Pressure 103/59 L 92/61 Pulse Oximetry 92 Oxygen Delivery Method Oxygen Flow Rate 07/13/24 10:38 07/13/24 10:40 07/13/24 10:40 Temperature Pulse Rate 78 78 Respiratory Rate Blood Pressure 113/70 Pulse Oximetry 92 92 Oxygen Delivery Method Oxygen Flow Rate 07/13/24 11:00 07/13/24 11:00 07/13/24 11:30 Temperature Pulse Rate 87 79 Respiratory Rate Blood Pressure 97/59 L Pulse Oximetry 92 93 Oxygen Delivery Method Oxygen Flow Rate 07/13/24 11:30 07/13/24 12:00 07/13/24 12:00 Temperature Pulse Rate 86 Respiratory Rate Blood Pressure 99/58 L 98/61 Pulse Oximetry 93 Oxygen Delivery Method Oxygen Flow Rate 07/13/24 12:30 07/13/24 12:30 07/13/24 13:02 Temperature Pulse Rate 79 Respiratory Rate Blood Pressure 99/60 Pulse Oximetry 94 Oxygen Delivery Method Nasal Cannula Oxygen Flow Rate 07/13/24 13:40 07/13/24 17:11 Temperature 98.8 F Pulse Rate 91 H Respiratory Rate 22 24 Blood Pressure 95/54 L Pulse Oximetry 94 92 Oxygen Delivery Method Oxygen Flow Rate 4
[2024-07-14] VITALS (7 sets, daily range): BP systolic 93–110; BP diastolic 53–63; PULSE 92–105; RESP 16–24; TEMP 36.8–37.9; O2SAT 92–98
[2024-07-14] MEDS: PIPERACILLIN/TAZO 3.375 GM in SODIUM CHLORIDE 0.9% 100 ML IV ×3 (04:43→20:21)
[2024-07-14 05:27] LABS: Add Manual Diff / Slide Review NO; Basophils Absolute Auto 0 /uL (0-100); Basophils Percent Auto 0.2 % (0-2); Eosinophils Absolute Auto 0 /uL (0-450); Hematocrit 39.8 % (36-46); Hemoglobin 13.2 g/dL (12.0-16.0); Lymphocytes Absolute Auto 500 /uL (1100-4500); Mean Corpuscular HGB Conc 33.3 % (30-36); Mean Corpuscular Hemoglobin 31.7 PG (26-34); Mean Corpuscular Volume 95.2 fL (80-100); Monocytes Absolute Auto 500 /uL (0-900); Monocytes Percent Auto 6.3 % (3-14); Neutrophils Absolute Auto 7500 /uL (1500-7000); Neutrophils Percent Auto 87.5 % (50-75); Platelet Count 126 X10^3/uL (150-400); Red Blood Cell Count 4.18 X10^6/uL (4.0-5.2); Red Cell Distribution Width 14.6 % (11.6-14.8); White Blood Cell Count 8.6 X10^3/uL (4.5-11.0)
[2024-07-14] MEDS: SODIUM CHLORIDE 0.9% 1,000 ML 100 ML IV ×2 (08:39→18:32)
[2024-07-14] MEDS: ENOXAPARIN 40 MG/0.4 ML SYRINGE SUBCUT (10:00)
--- NOTE | 2024-07-14 15:28 | DIET.CONS ---
Dietary Consultation Note Admission Date: 07/13/2024 11:58 Assessment: 34 y F presenting for lethargy and not eating. Dietitian consulted for poor appetite, no PO intake. Met with pt's dad in room. Pt sleeping. Reports not eating during hospitalizations is normal for this pt for the first 2 days and then pt starts to slowly eat more food. Pt then returns to normal PO intakes when d/c home. Pt last ate Saturday morning. Normal PO intakes before this on regular diet. In previous hospitalizations when pt was eating has tolerated the following foods the best: ice cream, apple juice, rice and veggies. Pt's dad also has brought in food beforehand that pt is comfortable with from home. Encouraged him to do so as tolerated by pt on diet order. No recent weight loss. UBW is around 123 lb +/- 5 lb. Ht: 157.48 cm Wt: 55.5 kg BMI: 22.4 UBW: 123 lb (55.9kg) Last BM: 07/11/24 (07/13/24 12:02) MNA: 9 Stuart Score: 13 Diet: 07/13/24 Dinner Full Liquid Diet Diet Modifications: Honey thickened pureed Labs: RBC 4.18 X10^6/uL (4.0-5.2) 07/14/24 04:39 Hgb 13.2 g/dL (12.0-16.0) 07/14/24 04:39 Hct 39.8 % (36-46) 07/14/24 04:39 Creatinine 0.35 mg/dL (0.52-1.04) L 07/12/24 22:45 Lactate 1.2 mmol/L (0.7-2.1) 07/12/24 22:45 NT-Pro-B Natriuret Pep 555 pg/mL (<125) H 07/12/24 22:45 Nutrition Diagnosis: Inadequate oral intakes r/t poor appetite while hospitalized aeb no PO intakes for 2 days Interventions: -Provide best tolerated foods, pt's dad previously has brought in food from home pt is comfortable with, do as pt tolerates based on diet order Monitoring/Evaluations: Closely monitoring intakes and days without significant PO intake Electronically Signed by: Esperanza Aviles 07/14/24 15:28 Clinical Dietitian [address] [address]
--- NOTE | 2024-07-14 17:04 | PM.PN.1 ---
Subjective Subjective Interval history: 34 F with PMH of muscular dystrophy admitted with rhinovirus and probable bacterial superinfection. Lethargic, still requiring 2L O2 today without worsening. Does have history of prior need for intubation and bronchoscopy. Exam Vital Signs (past 8 hours): - 07/14/24 12:00 Temperature 98.6 F Pulse Rate 95 H Respiratory Rate 16 Blood Pressure 93/53 L Pulse Oximetry 98 Oxygen Flow Rate 2 Fraction of Inspired Oxygen 36 SaO2/FiO2 Ratio 266 Oxygen Delivery Method Nasal Cannula Oxygen Flow Rate 2 Narrative Exam Narrative: Gen: lethargic appearing female, no acute distress ENT: poor dentition, MMM CV: RRR no m/r/g Pulm: CTA b/l Abd: S NT ND Ext: no edema Objective Labs 07/14/24 04:39 07/12/24 22:45 Labs: Laboratory Results - last 24 hr 07/14/24 04:39 WBC 8.6 RBC 4.18 Hgb 13.2 Hct 39.8 MCV 95.2 MCH 31.7 MCHC 33.3 RDW 14.6 Plt Count 126 L Neut % (Auto) 87.5 H Lymph % (Auto) 6.0 L [place] % (Auto) 6.3 Eos % (Auto) 0.0 L Baso % (Auto) 0.2 Neut # (Auto) 7500 H Lymph # (Auto) 500 L [place] # (Auto) 500 Eos # (Auto) 0 Baso # (Auto) 0 PFSH Medical History Muscular dystrophy Surgical History S/P bronchoscopy Social History household members: family Smoking Status: Never smoker alcohol intake: never Assessment & Plan Assessment & Plan narrative: 1. Acute hypoxemic respiratory failure, chronic respriatory failure with hypercapnea. Acute portion due to rhinovirus and presumed superimposed bacterial pneumonia, present on admission - continue zosyn - wean O2 as tolerated, goal O2 90-96%. - CTA negative for PE, shows bibasilar consolidations with dilated esophagus. - goal O2 89%-96%, closer to 90% while on supplemental therapy. 2. Muscular Dystrophy Code: Full, surrogate is patient's mother DVT: Lovenox daily I have utilized all available immediate resources to obtain, update, or review the patient's current medications. Dispo: Admitted inpatient, likely discharge 2-3 days depending on hypoxia and clinical course. Additional history obtained via discussions with the patient's father and beside RN. These discussions contributed to the creation of the above assessment and plan. I have reviewed patient's presenting documentation, labs, and imaging personally. Time-Based Coding :: [TOTAL MINUTES] spent with patient and on the chart (including review of chart, obtaining history, exam, reviewing outside data, placing orders, documenting exam and treatment plan, and counseling patient) on [DATE]. Quality VTE Deep Vein Thrombosis/Pulmonary Embolism Present on Admission: No
--- NOTE | 2024-07-14 17:49 | PC.NURSE ---
Pt able to use suction by self, using home tablet for entertainment. Declined lunch other than an ice cream cup. Father reports pt agreeable to drink water but pt declining other PO intake at this time. Pt incont, use of incont brief per pt request. Care ongoing.
[2024-07-14 21:56] LABS: Magnesium 1.9 mg/dL (1.6-2.3)
[2024-07-15 02:00] VITALS: BP 107/69; PULSE 95; RESP 17; TEMP 36.8; O2SAT 97
[2024-07-15] MEDS: PIPERACILLIN/TAZO 3.375 GM in SODIUM CHLORIDE 0.9% 100 ML IV (04:41)
[2024-07-15] MEDS: SODIUM CHLORIDE 0.9% 1,000 ML 100 ML IV (04:41)
[2024-07-15 05:00] LABS: BUN Creatinine Ratio 25.7 (6-22); Blood Urea Nitrogen 9 mg/dL (7-17); Calcium 8.3 mg/dL (8.4-10.2); Carbon Dioxide 18 mmol/L (22-32); Chloride 115 mmol/L (98-107); Estimated Glomerular Filt Rate > 60 mL/min (>60); Glucose 65 mg/dL (70-99); HEMOLYSIS 26 (0-50); Potassium 4.3 mmol/L (3.4-5.1); Sodium 144 mmol/L (137-145)
[2024-07-15 05:02] LABS: Add Manual Diff / Slide Review NO; Basophils Absolute Auto 0 /uL (0-100); Basophils Percent Auto 0.2 % (0-2); Eosinophils Absolute Auto 0 /uL (0-450); Hematocrit 41.3 % (36-46); Hemoglobin 13.6 g/dL (12.0-16.0); Lymphocytes Absolute Auto 500 /uL (1100-4500); Lymphocytes Percent Auto 6.8 % (25-40); Mean Corpuscular HGB Conc 32.9 % (30-36); Mean Corpuscular Hemoglobin 31.7 PG (26-34); Mean Corpuscular Volume 96.5 fL (80-100); Monocytes Absolute Auto 500 /uL (0-900); Monocytes Percent Auto 6.7 % (3-14); Neutrophils Absolute Auto 6100 /uL (1500-7000); Neutrophils Percent Auto 86.3 % (50-75); Platelet Count 133 X10^3/uL (150-400); Red Blood Cell Count 4.28 X10^6/uL (4.0-5.2); Red Cell Distribution Width 15.1 % (11.6-14.8); White Blood Cell Count 7.1 X10^3/uL (4.5-11.0)
--- NOTE | 2024-07-15 06:26 | PC.NURSE ---
Emergency Department Manager Note-Patient has been fatigued but able to make needs known. Loose cough, using sx on own. Incontinent large urine, agreeable to Purewick. On 1.5L NC, sats >94%, tried RA, but went down to 88%. AM Lab BG 65, patient declined PO intake... juice or ice cream. Notified [facility] Hospitalist at [phone], no response as of yet. Patient is responsive, VSS.
[2024-07-15 08:00] VITALS: PULSE 97; RESP 17; TEMP 36.9; O2SAT 98
[2024-07-15 09:20] VITALS: O2SAT 91
[2024-07-15 10:00] VITALS: O2SAT 93
[2024-07-15 11:16] VITALS: BP 106/62; PULSE 97; TEMP 37.1; O2SAT 95
[2024-07-15 11:53] VITALS: O2SAT 94
--- NOTE | 2024-07-15 13:28 | P.DS_ITS ---
History of Present Illness History of Present Illness Date Patient Seen: 07/15/24 Time Patient Seen: 13:28 Chief complaint: oxygen 92, cough, not feeling well Narrative: Per admitting provider, Chief complaint: Not feeling well lethargy poor appetite recurrent vomiting and aspiration pneumonia History of present illness: 34-year-old with muscular dystrophy limited cognitive capacity at 3 days of vomiting poor p.o. intake for lunch and dinner lethargy and decreased interaction with family. Patient is total care and under the stewardship of her parents. Patient has had a history of respiratory failure and prior intubation secondary to COVID. Family is familiar with these presentation which typically means infection and brought the person to the emergency room Findings in the emergency department were significant for: Obviously ill vomiting and drooling contracted and minimally interactive female. Nasal swab positive for enterovirus/rhinovirus all other viral including influenza A/B and COVID are negative Hemogram and comprehensive metabolic unremarkable CT of the chest shows bilateral lower lobe infiltrates right greater than left CT abdomen and pelvis no evidence of bowel obstruction MRI of the brain chronic demyelinating disease consistent with patient's history Discharge Providers Provider Date of admission: 07/13/24 11:58 Discharge Date: 07/15/24 Primary care physician: Doctor Keyona MD Consults: 07/14/24 08:56 Consult to Dietitian, Adult Routine Comment: Reason For Exam: poor appetite, no PO intake Discharge provider: Jose Juan Quintanilla DO Summary Hospital Course Discharge Diagnosis: 1. Acute hypoxemic respiratory failure, chronic respriatory failure with hypercapnea. Acute portion due to rhinovirus and presumed superimposed bacterial pneumonia, present on admission 2. Muscular Dystrophy Hospital Course: Is a 34-year-old female with muscular dystrophy who was admitted to the hospital with acute hypoxemic respiratory failure due to rhino viral infection and presumed superimposed bacterial pneumonia. The patient was treated with Zosyn initially with gradual improvement in her symptoms. She was able to be weaned off of oxygen and was feeling much improved. She was discharged home to complete a total 7 day course of antibiotics with Augmentin. Time Spent with Patient Time spent: Less than 30 minutes Exam Vital Signs (past 8 hours): - 07/15/24 08:00 07/15/24 09:20 07/15/24 09:58 Temperature 98.4 F Pulse Rate 97 H Respiratory Rate 17 Blood Pressure Pulse Oximetry 98 91 Oxygen Delivery Method Room Air Room Air Nasal Cannula Oxygen Flow Rate 2 0 07/15/24 10:00 07/15/24 11:16 07/15/24 11:53 Temperature 98.7 F Pulse Rate 97 H Respiratory Rate Blood Pressure 106/62 Pulse Oximetry 93 95 94 Oxygen Delivery Method Room Air Room Air Oxygen Flow Rate 0 0 0 Fraction of Inspired Oxygen 28 SaO2/FiO2 Ratio 342 Oxygen Delivery Method Room Air Oxygen Flow Rate 0 Narrative Exam Narrative: Gen: lethargic appearing female, no acute distress ENT: poor dentition, MMM CV: RRR no m/r/g Pulm: CTA b/l Abd: S NT ND Ext: no edema Objective Labs 07/15/24 04:10 07/15/24 04:10 Labs: Laboratory Results - last 24 hr 07/14/24 07/15/24 21:35 04:10 WBC 7.1 RBC 4.28 Hgb 13.6 Hct 41.3 MCV 96.5 MCH 31.7 MCHC 32.9 RDW 15.1 H Plt Count 133 L Neut % (Auto) 86.3 H Lymph % (Auto) 6.8 L [place] % (Auto) 6.7 Eos % (Auto) 0.0 L Baso % (Auto) 0.2 Neut # (Auto) 6100 Lymph # (Auto) 500 L [place] # (Auto) 500 Eos # (Auto) 0 Baso # (Auto) 0 Sodium 144 Potassium 4.3 Chloride 115 H Carbon Dioxide 18 L BUN 9 Creatinine 0.35 L Estimated GFR > 60 BUN/Creatinine Ratio 25.7 H Glucose 65 L Calcium 8.3 L Magnesium 1.9 2.0 PFSH Medical History Muscular dystrophy Surgical History S/P bronchoscopy Social History household members: family Smoking Status: Never smoker alcohol intake: never Discharge Plan Discharge Plan Patient Disposition: Home Health Service Provider Discharge Comment: You were admitted to the hospital with shortness of breath and pneumonia after a cold virus. You improved and no longer need oxygen. Continue another 5 days of antibiotics at home. Discharge orders & Medications Prescriptions: New amoxicillin-pot clavulanate 400-57 mg/5 mL suspension for reconstitution 10 ml PO BID 5 Days Qty: 100 0RF Follow up/Referrals: Miscellaneous,Doctor, [Primary Care Provider] - Diet/Activity/Treatments Diet: Diet as Tolerated and Full Liquid Diet comment: No changes to diet recommended at this time. Activity: No restrictions. Visit Report/Discharge Packet Instructions: DI for Pneumonia -- Adult, DI for Common Cold Stand Alone Forms: Patient Portal/API, Stroke Signs & Symptoms Discharge Data Primary Care Provider: Keyona,Doctor Quality VTE Deep Vein Thrombosis/Pulmonary Embolism Present on Admission: No
--- NOTE | 2024-07-15 14:43 | CM.DANOTE ---
Initial DCP Assessment Visit Note Reviewed EMR and team rounds for status updates. DIRECT SUPPORT PROFESSIONAL CAREGIVER was not able to meet with pt f/f. Pt is totally dependent on all care, resides with both parents in their family home in [place]. Pt is wheelchair bound at baseline due to remote hx of bilateral ankle fractures. Pt has been medically cleared for home d/c, and will be transported home by her parents this afternoon. They denied any CM d/c needs/resources at this time. Payor: [facility] PCP: Jennifer Bustillos Pt is a 34 year-old with a hx of muscular dystrophy, is total care and only minimally verbal. She has a hx of prior intubation for respiratory failure secondary to covid pneumonia. She began having a wet cough, increased mucous, and vomiting over the last 3-days, which her parents recognize as her having an infection. CT angio of the chest did show bilateral pneumonia (aspiration), labs were positive for rhinovirus. Pt was started on IV ABO's and monitored for diuresis. Today she is much improved and was ready for d/c home. No further CM needs indicated for assistance at this time. Discharge Planning/Care Management Advanced directive, confirm from FAMILY Start: 07/13/24 13:07 Freq: Q24H Status: Active Protocol: Document 07/13/24 13:07 KEELEY (Rec: 07/13/24 14:02 KEELEY [id number]) Advance Directive, confirm on record Time 14:02 Person contacted parent Copy received No CM Discharge Assessment Start: 07/13/24 12:02 Freq: Status: Active Protocol: Document 07/15/24 14:41 DPL (Rec: 07/15/24 14:43 DPL [id number]) Discharge Planning Assessment Assigned Component Assembler Supervisor LOREN Mcgarry Advance Directives? No Advance Directives on File No History Provided By Medical Record Has Patient been admitted in last 30 No days? Prior Living Arrangements House Household Members family Comment Pt lives with both parents Type of transporation used prior to Relies on Others admit Independent with ADL's No: pt is total care Is patient alert and oriented? No Needs Assistance With Bathing,Grooming,Meal Prep, Toileting,Managing Medications ,Home Chores / Shopping Caregiver for Another No DME Already Rented / Owned Bath Bench,Wheelchair,Elevated Toilet Seat Barriers to Discharge No Discharge Plan Home Transportation Arrangement Parents to provide transport. Additional Comment No identified d/c goals at this time. Whiteboard Updated in Patient Room with No name and ext. # of Component Assembler Supervisor Comment DIRECT SUPPORT PROFESSIONAL CAREGIVER did not enter room due to rhinovirus and active symptoms . Review Status In Process Please Provide Date Initial DC 07/15/24 Assessment Was Performed
--- NOTE | 2024-07-15 15:16 | PC.NURSE ---
Discharge Note Pt discharged to home with father (caregiver) at 1429. Assisted into wheelchair by father per home routine without issue. Escorted to hospital exit by staff member. All belongings with pt including shoes, clothing, and wheelchair. Discharge instructions given to father on cold, pneumonia, and augmentin. Pt on RA since this morning (See vitals) with SpO2 in the mid-90s.
== END 2024-07-15 14:29 | disposition home health service (06) | DRG 193 ==
LOC: ED 07-13 11:58 → AC 07-13 11:59 → ICU 07-13 12:53
PROVIDERS: Family Medicine; Internal Medicine; Admitting Provider Internal Medicine; Emergency Provider Emergency Medicine; Family Provider Family Medicine; Referring Provider Emergency Medicine; Visit Provider Internal Medicine
DX: J15.9 Unspecified bacterial pneumonia (principal); J96.01 Acute respiratory failure with hypoxia; J96.12 Chronic respiratory failure with hypercapnia; B97.89 Other viral agents as the cause of diseases classified elsewhere; G71.00 Muscular dystrophy, unspecified; Z99.3 Dependence on wheelchair; Z87.81 Personal history of (healed) traumatic fracture; Z86.16 Personal history of COVID-19
CPT/HCPCS: 0241U; 36415; 70450; 70551; 71045; 71275; 74177; 80048; 80053; 80305; 81003; 82140; 82550; 82805; 82962; 83605; 83735; 83880; 84145; 84443; 84484; 85025; 85610; 87040; 87633; 87797; 93005; 93010; 94640; 94762; 96365; 96367; 99285; J0696; J1650; J2543; Q9967

== ENCOUNTER 2024-07-16 23:56 | Emergency (ER) | payer BC, OTHER, SELFPAY ==
[2021-08-20 23:00] VITALS: RESP 18
[2023-07-20 14:47] VITALS: PULSE 88; RESP 23; O2SAT 98
[2024-07-13 12:02] VITALS: BMI 22.4
[2024-07-17] VITALS (8 sets, daily range): BP systolic 116–120; BP diastolic 74–76; PULSE 76–91; RESP 20; TEMP 37.1; O2SAT 92–95
--- NOTE | 2024-07-17 00:34 | DI.RAD.S_ITS ---
PROCEDURE: XR CHEST 2V INDICATIONS: cough, recent dx pn/RhinoV TECHNIQUE: 2 views of the chest were acquired. COMPARISON: [facility], CT, CT ABDOMEN PELVIS W CON, 07/13/2024, 9:17. [facility], CR, XR CHEST 1V, 07/12/2024, 22:05. [facility], CR, XR CHEST 1V, 07/20/2023, 12:11. [facility], CR, XR CHEST 1V, 07/20/2023, 10:03. [facility], CR, XR CHEST FOR PICC 1V, 07/19/2023, 12:19. FINDINGS: Surgical changes and devices: None. Lungs and pleura: Interval increase in bibasilar consolidations. No pleural effusions or pneumothorax. Mediastinum: Air opacifying the mid-distal thoracic esophagus. Mediastinal contours are normal. Heart size is normal. Bones and chest wall: No suspicious bony abnormalities. Soft tissues appear unremarkable. IMPRESSION: Interval increase in bibasilar consolidations with air in the thoracic esophagus. Consider aspiration pneumonia with esophageal dysmotility. Dictated by: Hemanth Herrera M.D. on 07/17/2024 at 1:11 Approved by: Hemanth Herrera M.D. on 07/17/2024 at 1:13
[2024-07-17] MEDS: ALBUTEROL 2.5 MG/3 ML NEB (ADULT) INH (00:53)
--- NOTE | 2024-07-17 01:06 | ED_ITS ---
HPI - URI/Sore Throat General Chief Complaint: Upper Respiratory Symptoms Stated Complaint: congestion/coughing Time Seen by Provider: 07/17/24 00:17 Mode of arrival: Wheelchair History of Present Illness HPI Narrative: 34-year-old female with history of demyelinating disease, esophageal dysmotility, aspiration pneumonia, recent admission to [facility] 07/13/24- 07/15/24 with aspiration pneumonitis and rhinovirus positive respiratory illness, initially treated with IV Zosyn antibiotic, discharged on liquid oral antibiotic Augmentin, still taking in liquid. She had a coughing episode this evening, transient increased of breathing noted by family this evening. Here for further evaluation. She does not have a PEG tube in place at this point, though patient/family has considered it last year. Related Data Previous Rx's Medication Instructions Recorded amoxicillin 400 mg-potassium 10 ml PO BID 5 days #100 mL 07/15/24 clavulanate 57 mg/5 mL oral suspension Allergies Allergy/AdvReac Type Severity Reaction Status Date / Time No Known Drug Allergies Allergy Verified 07/12/24 21:50 Patient History Medical History Muscular dystrophy Surgical History S/P bronchoscopy Social History household members: family alcohol intake: never Exam Narrative Exam Narrative: GENERAL: Well-developed patient. Holding her phone watching a show, in no respiratory distress. HEAD: Atraumatic. Normocephalic. EYES: Pupils equal round and reactive. Extraocular motions intact. No scleral icterus. No injection or drainage. ENT: Nose without bleeding, purulent drainage. Throat without erythema, tonsillar hypertrophy or exudate. Airway patent. NECK: Trachea midline. Non tender CARDIOVASCULAR: Regular rate and rhythm without murmurs, gallops, or rubs. RESPIRATORY: Bilateral rhonchi, no retractions. Occasional coughing effort. No respiratory distress at rest. GASTROINTESTINAL: Abdomen soft, non-tender, nondistended. EXTREMITIES: No edema or joint tenderness. BACK: Nontender without deformity or crepitance. No flank tenderness. NEURO: AOx3. Motor functions grossly nonfocal SKIN: No rash or erythema of visible areas Initial Vital Signs Initial Vital Signs: Vital Signs Temperature 98.7 F 07/17/24 00:16 Pulse Rate 91 H 07/17/24 00:16 Respiratory Rate 20 07/17/24 00:16 Blood Pressure 120/76 07/17/24 00:16 Pulse Oximetry 92 07/17/24 00:16 Oxygen Delivery Method Room Air 07/17/24 00:16 Course Orders Ordered: ED Orders 07/17/24 00:25 RT Consult Eval and Treat NOW 07/17/24 00:34 XR chest 2V Stat Discontinued Medications Albuterol (Albuterol 2.5 Mg/3 Ml Neb (Adult)) 2.5 mg INH NOW ONE Stop: 07/17/24 00:48 Last Admin: 07/17/24 00:53 Dose: 2.5 mg Documented By: [place] (Albuterol Hfa Prepack) 1 box MISC DIRECTED ONE Stop: 07/17/24 01:19 Last Admin: 07/17/24 01:22 Dose: 1 box Documented By: JUSTIN Vital Signs Vital signs: Vital Signs - 8 hr 07/17/24 00:16 07/17/24 00:18 07/17/24 00:30 Temperature 98.7 F Pulse Rate 91 H 82 Respiratory Rate 20 Blood Pressure 120/76 116/74 Pulse Oximetry 92 94 Oxygen Delivery Method Room Air 07/17/24 00:30 07/17/24 01:00 07/17/24 01:30 Temperature Pulse Rate 76 84 89 Respiratory Rate Blood Pressure Pulse Oximetry 94 95 93 Oxygen Delivery Method 07/17/24 02:00 07/17/24 02:30 07/17/24 03:00 Temperature Pulse Rate 90 85 91 H Respiratory Rate Blood Pressure Pulse Oximetry 93 93 92 Oxygen Delivery Method MDM - URI/Sore Throat MDM Narrative Medical decision making narrative: 34-year-old female with demyelinating disease, recent admission aspiration pneumonia and rhino virus positive illness, discharged home off of oxygen, increased cough episode this evening, bibasilar crackles on examination. Afebrile, sirs screen negative. 94% room air sat noted. Alert looking around, watching a show on her phone. Screening chest x-ray shows some interval bibasilar infiltrates. See radiology report. Attempts at lab, poor volumes for testing, eventually we decided to stop lab testing. Patient seems to have no oxygen requirement, coughing episode seems to be resolved. Known at risk for aspiration pneumonia. Still on oral Augmentin antibiotic from her hospital course. Consider pulmonary toilet. Consider bronchodilator and incentive spirometry. Bronchodilator albuterol per RT, we will discharge patient on albuterol MDI with spacer to use at home. Incentive spirometry dispensed with instruction. Discharged home. Follow up with PCP for post hospitalization re-evaluation. Return precautions discussed. Also gave clinic information for local general surgeons, to discuss future PEG placement given her history of esophageal dysmotility and aspiration pneumonia. Discharge Plan Departure Patient Disposition: Home Clinical Impression: Cough, History of aspiration pneumonia, History of esophageal disorder Instructions: DI for Aspiration Pneumonia, DI for Gastroesophageal Reflux Disease (GERD) Activity Restrictions/Additional Instructions: History of demyelinating disease, esophageal motility disorder, aspiration pneumonia. Recent admission for aspiration pneumonia treated with IV Zosyn antibiotic and discharged on oral liquid antibiotic Augmentin. No respiratory distress stress, crackles bibasilar on lung exam, 94% room air oxygen saturation normal. Normal blood pressure. Some attempts at obtaining labs, very small samples, labs canceled. Chest x-ray showed bibasilar infiltrates consistent with aspiration pneumonia. For now there did not seem to be a compelling indication for readmission. Oxygenation and respiratory status seems stable at this time. Discharged home with use of inhaler/spacer bronchodilator support, incentive spirometer if this can be use at home. Continue the oral Augmentin antibiotic. Recheck with your regular provider in clinic as planned. Return to this/nearest emergency department for any change worsening symptoms or any concerns prior. Consider outpatient general surgery consultation regarding feeding tube placement in the future, if likely to continue to have aspiration pneumonia problems. Contact information for local general surgeons provided in clinic. Prescriptions: No Action amoxicillin-pot clavulanate 400-57 mg/5 mL suspension for reconstitution 10 ml PO BID 5 Days Qty: 100 0RF Referrals: Sonido Gaspar MD [Physician] - Miscellaneous,MD Pat [Primary Care Provider] - Stand Alone Forms: Patient Portal/API/Survey
[2024-07-17] MEDS: ALBUTEROL HFA PREPACK 1 BOX MISC (01:22)
--- NOTE | 2024-07-17 03:31 | PC.NURSE ---
Pt recently discharged from Acute Care hospital setting while being treated for aspiration pneumonia. Pt still taking oral antibiotics at home.
--- NOTE | 2024-07-17 03:33 | PC.NURSE ---
Educated pt and family on clearing phlegm out of throat. Cough up and spit out. This also should be done in a sitting upright position.
== END 2024-07-17 03:34 | disposition home or self-care (01) ==
PROVIDERS: Emergency Provider Emergency Medicine; Family Provider Family Medicine
DX: R05.8 Other specified cough (principal); Z87.01 Personal history of pneumonia (recurrent); Z87.19 Personal history of other diseases of the digestive system
CPT/HCPCS: 71046; 94640; 99283; J7613

== ENCOUNTER 2024-07-23 10:51 | Inpatient (IN) | payer BC, OTHER, SELFPAY ==
[2021-08-20 23:00] VITALS: RESP 18
[2023-07-20 14:47] VITALS: PULSE 88; RESP 23; O2SAT 98
[2024-07-13 12:02] VITALS: BMI 22.4
[2024-07-23] VITALS (23 sets, daily range): BP systolic 85–110; BP diastolic 47–65; PULSE 66–120; RESP 16–24; TEMP 36.2–37.2; O2SAT 89–100; BMI 20.3
--- NOTE | 2024-07-23 11:13 | EKG_ITS ---
[facility] [address] [place] [address] Test Date: 2024-07-23 Pat Name: Danica Goss Department: [facility] Room: Gender: Female Manager Work: : 1990 Requested By: Order Number: [id number] Reading MD: Nba Sullivan MD Measurements Intervals [place] Rate: 86 P: 23 AL: 216 QRS: -58 QRSD: 206 T: 104 QT: 560 QTc: 670 Interpretive Statements Sinus rhythm with 1st degree AV block Possible Left atrial enlargement Left axis deviation Nonspecific intraventricular block Left ventricular hypertrophy with repolarization abnormality ( R in aVL , Carlos product ) NO SIGNIFICANT CHANGE FROM PRIOR TRACING Electronically Signed On 07-23-2024 17:13:12 PDT by Nba Sullivan MD
--- NOTE | 2024-07-23 11:13 | DI.RAD.S_ITS ---
PROCEDURE: XR CHEST 1V INDICATIONS: suspected sepsis TECHNIQUE: One view of the chest was acquired. COMPARISON: [facility], CR, XR CHEST 2V, 07/17/2024, 0:31. [facility], CR, XR CHEST 1V, 07/12/2024, 22:05. [facility], CR, XR CHEST 1V, 07/20/2023, 12:11. FINDINGS: Surgical changes and devices: None. Lungs and pleura: Small right basilar opacity is again seen. Left lung base appears clear. No pleural effusions or pneumothorax. Mediastinum: Mediastinal contours appear normal. Heart size is normal. Air is again noted in the thoracic esophagus. Bones and chest wall: No suspicious bony lesions. Overlying soft tissues appear unremarkable. IMPRESSION: Persistent right lower lobe consolidation is suspicious for pneumonia or aspiration. Approved by: Oscar Valiente M.D. on 07/23/2024 at 11:58
--- NOTE | 2024-07-23 11:35 | DI.CT.S_ITS ---
PROCEDURE: CT ANGIO CHEST PE PROTOCOL INDICATIONS: Dyspnea TECHNIQUE: After the administration of intravenous contrast, 2 mm thick sections acquired from the pulmonary apices to the posterior costophrenic angles. 3-dimensional maximum intensity projection (MIP) coronal and sagittal reformats were then acquired through the thorax. For radiation dose reduction, the following was used: automated exposure control, adjustment of mA and/or kV according to patient size. COMPARISON: [facility], CR, XR CHEST 1V, 07/23/2024, 11:24. [facility], CT, CT ANGIO CHEST PE PROTOCOL, 07/13/2024, 1:44. [facility], CT, CT ANGIO CHEST PE PROTOCOL, 07/18/2023, 13:35. FINDINGS: Image quality: Diagnostic. Pulmonary arteries: Pulmonary arteries are normal in size, and demonstrate no intraluminal filling defects to suggest central pulmonary embolism. Lower Neck: No enlarged lymph nodes. Thyroid: No thyroid nodules which require sonographic follow up, per consensus guidelines. Axillae: No enlarged lymph nodes. Chest Wall: Unremarkable. Bones: Unremarkable. Lungs and Pleura: No pneumothorax or pleural effusions. Right lower lobe consolidative opacity with fluid material seen in multiple bronchi, suspicious for pneumonia or aspiration. Additional tree-in-bud nodularity is seen in the lower lobes bilaterally. Heart: Heart size is normal. No pericardial effusion. Thoracic Vessels: No aortic aneurysm. Mediastinum and Ashlie: No enlarged lymph nodes. Esophagus: No wall thickening. No hiatal hernia. Mildly patulous esophagus filled with air and fluid. Upper Abdomen: Visualized upper abdomen solid organs and bowel loops appear normal. IMPRESSION: 1. No acute pulmonary embolus. 2. Right lower lobe consolidative opacity and bibasilar tree-in-bud nodularity are suspicious for pneumonia or aspiration. 3. Mildly patulous fluid-filled esophagus. Approved by: Oscar Valiente M.D. on 07/23/2024 at 12:41
--- NOTE | 2024-07-23 11:38 | ED.SOB ---
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 Patient admitted here earlier this month and discharged home. Returned here July 17, 2024 and discharged home on Augmentin suspension for pneumonia. Please see notes below. Patient in no distress at this time however is lower O2 saturation than previous visits. 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 Chief Complaint: Upper Respiratory Symptoms Stated Complaint: congestion/coughing Time Seen by Provider: 07/17/24 00:17 Mode of arrival: Wheelchair History of Present Illness HPI Narrative: 34-year-old female with history of demyelinating disease, esophageal dysmotility, aspiration pneumonia, recent admission to [facility] 07/13/24-07/15/24 with aspiration pneumonitis and rhinovirus positive respiratory illness, initially treated with IV Zosyn antibiotic, discharged on liquid oral antibiotic Augmentin, still taking in liquid. She had a coughing episode this evening, transient increased of breathing noted by family this evening. Here for further evaluation. She does not have a PEG tube in place at this point, though patient/family has considered it last year. Related Data Home Medications Medication Instructions Recorded Confirmed No Known Home Medications 07/23/24 07/23/24 Allergies Allergy/AdvReac Type Severity Reaction Status Date / Time vancomycin AdvReac Intermediate Redness of Verified 07/24/24 13:48 Skin Review of Systems Review of Systems Narrative: GENERAL: Negative chills, fatigue, malaise, fever, sweats. HEENT: Negative sinus pain, ear pain, sore throat RESPIRATORY: Positive dyspnea, cough CARDIOVASCULAR: Negative chest pain, palpitations GASTROINTESTINAL: Negative vomiting, nausea, abdominal pain : Negative dysuria, frequency, hematuria MUSCULOSKELETAL: Negative muscle or bony pain SKIN: Negative rash, skin lesions NEUROLOGIC: Negative weakness, numbness ROS Unobtainable: All systems reviewed & are unremarkable except as noted in HPI and below Patient History Medical History Muscular dystrophy Surgical History S/P bronchoscopy Social History household members: family Smoking Status: Never smoker alcohol intake: never Exam Narrative Exam Narrative: GENERAL: in no distress, not toxic not dyspneic HEAD: Normocephalic. EYES: Pupils equal round ENT: Mucous membranes moist. NECK: Trachea midline. CARDIOVASCULAR: Regular rate and rhythm RESPIRATORY: Speaking full sentences, however diminished lung sounds at the bases Breath sounds equal bilaterally. No wheezes, rales, or rhonchi. GASTROINTESTINAL: Abdomen soft, non-tender EXTREMITIES: No gross deformities. BACK: No flank tenderness. NEURO: Awake alert following instructions very well. SKIN: Warm and dry PSYCH: Not anxious, is cooperative Initial Vital Signs Initial Vital Signs: Vital Signs Pulse Rate 111 H 07/23/24 11:03 Pulse Oximetry 92 07/23/24 11:03 Course Orders Ordered: Discontinued Medications Acetaminophen (Acetaminophen 325 Mg Tablet) 650 mg PO Q6H PRN PRN Reason: Fever/Mild Pain (1-3) Amoxicillin/Clavulanate Potassium (Amox/Clav 400 Mg/5ml Susp) 400 mg PO TID [facility] Last Admin: 07/27/24 16:35 Dose: Not Given Documented By: Admin: 07/27/24 11:11 Dose: Not Given Documented By: Admin: 07/26/24 22:17 Dose: Not Given Documented By: Admin: 07/26/24 15:54 Dose: Not Given Documented By: Admin: 07/26/24 13:18 Dose: Not Given Documented By: MELINA Diphenhydramine HCl (Diphenhydramine 50 Mg/Ml Vial) 25 mg IV NOW ONE Stop: 07/23/24 12:55 Last Admin: 07/23/24 12:58 Dose: 25 mg Documented By: YULIANA Diphenhydramine HCl (Diphenhydramine 50 Mg/Ml Vial) 25 mg IV NOW PRN PRN Reason: Allergic Reaction Enoxaparin Sodium (Enoxaparin 40 Mg/0.4 Ml Syringe) 40 mg SUBCUT DAILY [facility] Last Admin: 07/27/24 10:00 Dose: Not Given Documented By: Admin: 07/26/24 12:07 Dose: 40 mg Documented By: Admin: 07/25/24 08:41 Dose: 40 mg Documented By: Admin: 07/24/24 09:53 Dose: 40 mg Documented By: MS Epinephrine HCl (Epinephrine 1 Mg/Ml) 0.3 mg IM NOW PRN PRN Reason: Allergic Reaction Famotidine (Famotidine 20 Mg/2 Ml Vial) 20 mg IV NOW [facility] Last Admin: 07/23/24 12:58 Dose: 20 mg Documented By: YULIANA Sodium Chloride (Normal Saline 0.9%) 1,000 mls @ 1,000 mls/hr IV BOLUS ONE Stop: 07/23/24 12:12 Last Infusion: 07/23/24 13:13 Dose: Infused Documented By: Admin: 07/23/24 11:46 Dose: 1,000 mls/hr Documented By: YULIANA Piperacillin Sod/Tazobactam (Sod 4.5 gm/ Sodium Chloride) 100 mls @ 200 mls/hr IV NOW ONE Stop: 07/23/24 11:38 Last Infusion: 07/23/24 13:13 Dose: Infused Documented By: Admin: 07/23/24 12:00 Dose: 200 mls/hr Documented By: YULIANA Vancomycin HCl 1,000 mg/ (Sodium Chloride) 250 mls @ 250 mls/hr IV NOW ONE Stop: 07/23/24 13:14 Last Infusion: 07/23/24 14:40 Dose: 0 mls/hr Documented By: Infusion: 07/23/24 14:38 Dose: 0 mls/hr Documented By: Admin: 07/23/24 13:26 Dose: 250 mls/hr Documented By: YULIANA Sodium Chloride (Normal Saline 0.9%) 1,000 mls @ 100 mls/hr IV CONT [facility] Last Admin: 07/27/24 03:20 Dose: 100 mls/hr Documented By: Infusion: 07/27/24 03:20 Dose: Infused Documented By: Admin: 07/26/24 17:39 Dose: 100 mls/hr Documented By: Infusion: 07/26/24 11:42 Dose: Infused Documented By: Admin: 07/26/24 01:42 Dose: 100 mls/hr Documented By: Infusion: 07/25/24 16:41 Dose: Infused Documented By: Infusion: 07/25/24 06:44 Dose: 100 mls/hr Documented By: Admin: 07/25/24 06:41 Dose: 100 mls/hr Documented By: Infusion: 07/24/24 22:37 Dose: Infused Documented By: Admin: 07/24/24 12:37 Dose: 100 mls/hr Documented By: Infusion: 07/24/24 02:35 Dose: Infused Documented By: Admin: 07/23/24 16:35 Dose: 100 mls/hr Documented By: ANASTACIA Cefepime HCl 2 gm/ Sodium (Chloride) 100 mls @ 200 mls/hr IV Q12H [facility] Last Admin: 07/24/24 03:58 Dose: 200 mls/hr Documented By: MS(2) Infusion: 07/23/24 17:05 Dose: Infused Documented By: MS(2) Admin: 07/23/24 16:35 Dose: 200 mls/hr Documented By: ANASTACIA POTASSIUM CHLORIDE IN WATER (Potassium Cl 10 Meq/100 Ml Ale) 10 meq in 100 mls @ 100 mls/hr IV Q1H [facility] Stop: 07/24/24 00:29 Last Admin: 07/24/24 02:21 Dose: 100 mls/hr Documented By: MS(2) Infusion: 07/24/24 02:21 Dose: Infused Documented By: MS(2) Admin: 07/24/24 01:21 Dose: 100 mls/hr Documented By: MS(2) Infusion: 07/24/24 01:21 Dose: Infused Documented By: MS(2) Admin: 07/24/24 00:47 Dose: 100 mls/hr Documented By: MS(2) Infusion: 07/23/24 22:00 Dose: Infused Documented By: MS(2) Admin: 07/23/24 21:00 Dose: 100 mls/hr Documented By: MS(2) Piperacillin Sod/Tazobactam (Sod 4.5 gm/ Sodium Chloride) 100 mls @ 200 mls/hr IV NOW ONE Stop: 07/24/24 11:29 Last Admin: 07/24/24 20:41 Dose: Not Given Documented By: NELIA Piperacillin Sod/Tazobactam (Sod 0.45 gm/ Sodium Chloride) 50 mls @ 100 mls/hr IV NOW ONE Stop: 07/24/24 11:44 Last Infusion: 07/24/24 13:00 Dose: Infused Documented By: Admin: 07/24/24 11:45 Dose: 100 mls/hr Documented By: MS Piperacillin Sod/Tazobactam (Sod 4.05 gm/ Sodium Chloride) 100 mls @ 200 mls/hr IV 1200 ONE Stop: 07/24/24 12:29 Last Infusion: 07/24/24 13:30 Dose: Infused Documented By: Admin: 07/24/24 12:50 Dose: 200 mls/hr Documented By: MS POTASSIUM CHLORIDE IN WATER (Potassium Cl 10 Meq/100 Ml Ale) 10 meq in 100 mls @ 100 mls/hr IV Q1H [facility] Stop: 07/24/24 14:59 Last Admin: 07/24/24 15:53 Dose: 100 mls/hr Documented By: Infusion: 07/24/24 15:17 Dose: Infused Documented By: Admin: 07/24/24 14:17 Dose: 100 mls/hr Documented By: MS Piperacillin Sod/Tazobactam (Sod 3.375 gm/ Sodium Chloride) 100 mls @ 25 mls/hr IV Q8H [facility] Last Admin: 07/27/24 15:00 Dose: Not Given Documented By: Infusion: 07/27/24 13:39 Dose: Infused Documented By: Admin: 07/27/24 09:39 Dose: 25 mls/hr Documented By: Infusion: 07/27/24 05:44 Dose: Infused Documented By: Admin: 07/27/24 01:44 Dose: 25 mls/hr Documented By: Infusion: 07/26/24 21:40 Dose: Infused Documented By: Admin: 07/26/24 17:40 Dose: 25 mls/hr Documented By: Infusion: 07/26/24 15:55 Dose: Infused Documented By: Admin: 07/26/24 10:07 Dose: 25 mls/hr Documented By: Infusion: 07/26/24 07:38 Dose: Infused Documented By: Admin: 07/26/24 01:39 Dose: 25 mls/hr Documented By: Infusion: 07/25/24 23:55 Dose: Infused Documented By: Admin: 07/25/24 19:44 Dose: 25 mls/hr Documented By: Infusion: 07/25/24 16:20 Dose: Infused Documented By: Admin: 07/25/24 08:41 Dose: 25 mls/hr Documented By: Infusion: 07/25/24 05:52 Dose: Infused Documented By: Admin: 07/25/24 01:32 Dose: 25 mls/hr Documented By: Infusion: 07/24/24 22:12 Dose: Infused Documented By: Admin: 07/24/24 18:12 Dose: 25 mls/hr Documented By: POTASSIUM CHLORIDE IN WATER (Potassium Cl 10 Meq/100 Ml Ale) 10 meq in 100 mls @ 100 mls/hr IV Q1H [facility] Stop: 07/25/24 15:44 Last Admin: 07/26/24 07:39 Dose: Not Given Documented By: Admin: 07/26/24 07:39 Dose: Not Given Documented By: Admin: 07/26/24 07:39 Dose: Not Given Documented By: Admin: 07/25/24 15:12 Dose: 100 mls/hr Documented By: ASAD POTASSIUM CHLORIDE IN WATER (Potassium Cl 10 Meq/100 Ml Ale) 10 meq in 100 mls @ 100 mls/hr IV Q1H [facility] Stop: 07/25/24 19:14 Last Admin: 07/25/24 19:44 Dose: 100 mls/hr Documented By: Infusion: 07/25/24 18:19 Dose: Infused Documented By: Admin: 07/25/24 17:19 Dose: 100 mls/hr Documented By: Infusion: 07/25/24 17:19 Dose: Infused Documented By: Admin: 07/25/24 16:20 Dose: 100 mls/hr Documented By: ASAD Potassium Chloride 20 meq/ (Dextrose/Sodium Chloride) 1,010 mls @ 100 mls/hr IV CONT [facility] Last Admin: 07/27/24 09:40 Dose: 100 mls/hr Documented By: CLP Co-signed By: OLAYINKA Methylprednisolone (Methylprednisolone 125 Mg/2 Ml Vial) 125 mg IV NOW PRN PRN Reason: Allergic Reaction Naloxone HCl (Naloxone 0.4 Mg/Ml Vial) 0.2 mg IV Q2MIN PRN PRN Reason: Opiate Reversal Ondansetron HCl (Ondansetron 4 Mg/2 Ml Inj) 4 mg IV Q4HR PRN PRN Reason: Nausea And Vomiting Potassium Chloride (Potassium Chloride 20 Meq/15 Ml Udc) 40 meq PO NOW ONE Stop: 07/23/24 16:14 Last Admin: 07/23/24 16:35 Dose: 40 meq Documented By: SB Potassium Chloride (Potassium Chloride 20 Meq/15 Ml Udc) 40 meq PO 2200 ONE Stop: 07/23/24 22:01 Last Admin: 07/23/24 20:57 Dose: Not Given Documented By: MS(2) Potassium Chloride (Potassium Chloride 20 Meq/15 Ml Udc) 40 meq PO NOW ONE Stop: 07/24/24 11:01 Last Admin: 07/24/24 11:46 Dose: 40 meq Documented By: MS Sodium Chloride (Sodium Chloride 0.9% Flush) 10 ml IV PRN PRN PRN Reason: Flush Sodium Chloride (Sodium Chloride 0.9% Flush) 10 ml IV BID [facility] Last Admin: 07/27/24 09:39 Dose: 10 ml Documented By: Admin: 07/26/24 23:16 Dose: 10 ml Documented By: Admin: 07/26/24 10:13 Dose: Not Given Documented By: Admin: 07/25/24 19:50 Dose: 10 ml Documented By: Admin: 07/25/24 10:20 Dose: Not Given Documented By: KMD Vancomycin HCl (Vancomycin Per Pharmacy) 1 request MISC NOW PRN PRN Reason: pneumonia Vital Signs Vital signs: Vital Signs - 8 hr 07/23/24 11:03 07/23/24 11:04 07/23/24 11:04 Temperature Pulse Rate 111 H 109 H Respiratory Rate Blood Pressure 90/59 L Pulse Oximetry 92 91 Oxygen Delivery Method Oxygen Flow Rate 07/23/24 11:05 07/23/24 11:15 07/23/24 11:15 Temperature 98.9 F Pulse Rate 120 H 107 H Respiratory Rate 20 Blood Pressure 97/65 95/60 Pulse Oximetry 90 L 91 Oxygen Delivery Method Room Air Oxygen Flow Rate 07/23/24 11:30 07/23/24 11:30 07/23/24 12:46 Temperature Pulse Rate 104 H Respiratory Rate Blood Pressure 92/55 L Pulse Oximetry 89 L 100 Oxygen Delivery Method Nasal Cannula Oxygen Flow Rate 2 MDM - SOB/Dyspnea Lab Data 07/27/24 05:45 07/27/24 05:45 Labs: Lab Results 07/23/24 Range/Units 11:31 WBC 10.1 (4.5-11.0) X10^3/uL RBC 5.42 H (4.0-5.2) X10^6/uL Hgb 17.1 H (12.0-16.0) g/dL Hct 51.0 H (36-46) % MCV 94.0 (80-100) fL MCH 31.5 (26-34) PG MCHC 33.5 (30-36) % RDW 14.5 (11.6-14.8) % Plt Count 278 (150-400) X10^3/uL Neut % (Auto) 84.9 H (50-75) % Lymph % (Auto) 8.1 L (25-40) % Newberry % (Auto) 6.2 (3-14) % Eos % (Auto) 0.4 L (2-4) % Baso % (Auto) 0.4 (0-2) % Neut # (Auto) 8500 H (2474-8482) /uL Lymph # (Auto) 800 L (3360-9620) /uL Newberry # (Auto) 600 (0-900) /uL Eos # (Auto) 0 (0-450) /uL Baso # (Auto) 0 (0-100) /uL PT 13.5 H (9.4-12.5) SECONDS INR 1.2 (0.9-1.3) APTT 35 (25.1-36.5) SECONDS Sodium 143 (137-145) mmol/L Potassium 2.7 L* D (3.4-5.1) mmol/L Chloride 97 L (98-107) mmol/L Carbon Dioxide 30 (22-32) mmol/L BUN 9 (7-17) mg/dL Creatinine 0.42 L (0.52-1.04) mg/dL Estimated GFR > 60 (>60) mL/min BUN/Creatinine Ratio 21.4 (6-22) Glucose 99 (70-99) mg/dL Lactate 1.6 (0.7-2.1) mmol/L Calcium 9.1 (8.4-10.2) mg/dL Total Bilirubin 1.3 (0.2-1.3) mg/dL AST 42 H (14-36) IU/L ALT 27 (<35) IU/L Alkaline Phosphatase 80 (38-126) U/L Total Protein 8.9 H (6.3-8.2) g/dL Albumin 4.7 (3.5-5.0) g/dL Globulin 4.2 H (1.7-4.1) g/dL Albumin/Globulin Ratio 1.1 (1.0-2.8) Lipase 231 (23-300) U/L Procalcitonin 0.080 (<0.5) ng/mL Imaging Data Chest x-ray: Radiologist's Impression: [address] [address] XRay Report Signed Patient: Danica Goss MR#: [id number] : 1990 Acct:[id number] Age/Sex: 34 / F Date of Service: 07/23/24 Loc: ED Accession Number: [id number] Procedure: XR chest 1V Ordering Provider: Kumar Johnston MD PROCEDURE: XR CHEST 1V INDICATIONS: suspected sepsis TECHNIQUE: One view of the chest was acquired. COMPARISON: [facility], CR, XR CHEST 2V, 07/17/2024, 0:31. [facility], CR, XR CHEST 1V, 07/12/2024, 22:05. [facility], CR, XR CHEST 1V, 07/20/2023, 12:11. FINDINGS: Surgical changes and devices: None. Lungs and pleura: Small right basilar opacity is again seen. Left lung base appears clear. No pleural effusions or pneumothorax. Mediastinum: Mediastinal contours appear normal. Heart size is normal. Air is again noted in the thoracic esophagus. Bones and chest wall: No suspicious bony lesions. Overlying soft tissues appear unremarkable. IMPRESSION: Persistent right lower lobe consolidation is suspicious for pneumonia or aspiration. Approved by: Oscar Valiente M.D. on 07/23/2024 at 11:58 CT scan - chest: Radiologist's Impression: [address] [address] [address] Scan Report Signed Patient: Danica Goss MR#: [id number] : 1990 Acct:[id number] Age/Sex: 34 / F Date of Service: 07/23/24 Loc: ED Accession Number: [id number] Procedure: CT angio chest PE protocol Ordering Provider: Kumar Johnston MD PROCEDURE: CT ANGIO CHEST PE PROTOCOL INDICATIONS: Dyspnea TECHNIQUE: After the administration of intravenous contrast, 2 mm thick sections acquired from the pulmonary apices to the posterior costophrenic angles. 3-dimensional maximum intensity projection (MIP) coronal and sagittal reformats were then acquired through the thorax. For radiation dose reduction, the following was used: automated exposure control, adjustment of mA and/or kV according to patient size. COMPARISON: [facility], CR, XR CHEST 1V, 07/23/2024, 11:24. [facility], CT, CT ANGIO CHEST PE PROTOCOL, 07/13/2024, 1:44. [facility], CT, CT ANGIO CHEST PE PROTOCOL, 07/18/2023, 13:35. FINDINGS: Image quality: Diagnostic. Pulmonary arteries: Pulmonary arteries are normal in size, and demonstrate no intraluminal filling defects to suggest central pulmonary embolism. Lower Neck: No enlarged lymph nodes. Thyroid: No thyroid nodules which require sonographic follow up, per consensus guidelines. Axillae: No enlarged lymph nodes. Chest Wall: Unremarkable. Bones: Unremarkable. Lungs and Pleura: No pneumothorax or pleural effusions. Right lower lobe consolidative opacity with fluid material seen in multiple bronchi, suspicious for pneumonia or aspiration. Additional tree-in-bud nodularity is seen in the lower lobes bilaterally. Heart: Heart size is normal. No pericardial effusion. Thoracic Vessels: No aortic aneurysm. Mediastinum and Ashlie: No enlarged lymph nodes. Esophagus: No wall thickening. No hiatal hernia. Mildly patulous esophagus filled with air and fluid. Upper Abdomen: Visualized upper abdomen solid organs and bowel loops appear normal. IMPRESSION: 1. No acute pulmonary embolus. 2. Right lower lobe consolidative opacity and bibasilar tree-in-bud nodularity are suspicious for pneumonia or aspiration. 3. Mildly patulous fluid-filled esophagus. Approved by: Oscar Valiente M.D. 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 Patient admitted here earlier this month and discharged home. Returned here July 17, 2024 and discharged home on Augmentin suspension for pneumonia. Please see notes below. Patient in no distress at this time however is lower O2 saturation than previous visits. 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 After history and exam, CBC CMP procalcitonin lactic acid blood culture Zosyn and vancomycin chest x-ray, CT chest [facility] Medical records reviewed: ER visit here July 17, 2024 Differential considered: Includes but not limited to pneumonia pulmonary embolism bronchitis Lab Test results independently reviewed as above. Pertinent findings: WBC 10.1 hemoglobin 17.1 sodium 143 potassium 2.7 BUN 9 creatinine 0.42 GFR greater than 60 procalcitonin 0.08 lactate 1.6 Imaging studies independently reviewed: Chest x-ray persistent pneumonia, CT chest no pulmonary embolism, there is persistent right lower lobe pneumonia/aspiration Consultations: 1:40 p.m.. Spoke with hospitalist, Dr. Grimes, will admit, patient likely had allergic reaction to Zosyn. It was stopped. No airway compromise or anaphylaxis. Re-evaluations: 1:42 p.m. Reviewed results with patient and family. They agree for admission for continued pneumonia and eating IV antibiotics. Discussion: Appropriate for admission for IV antibiotics. Patient has already been on antibiotics in the past 6 days and with previous admission earlier this month for pneumonia. Patient has failed outpatient antibiotic therapy. Diagnosis: Pneumonia, hypokalemia Discharge Plan Departure Patient Disposition: Admitted As Inpatient Clinical Impression: Acute hypokalemia Pneumonia Qualifiers: Pneumonia type: due to unspecified organism Laterality: unspecified laterality Lung location: unspecified part of lung Qualified Code(s): J18.9 - Pneumonia, unspecified organism Admit Date/Time: 07/23/24 13:40 Admit Provider: Vaughn Fisher
[2024-07-23] MEDS: SODIUM CHLORIDE 0.9% 1,000 ML 1000 ML IV (11:46)
[2024-07-23 11:52] LABS: INR 1.2 (0.9-1.3); Prothrombin Time 13.5 SECONDS (9.4-12.5)
[2024-07-23 11:54] LABS: PTT Partial Thromboplastin Tim 35 SECONDS (25.1-36.5)
[2024-07-23] MEDS: PIPERACILLIN/TAZO 4.5 GM in SODIUM CHLORIDE 0.9% 100 ML IV (12:00)
[2024-07-23 12:02] LABS: Add Manual Diff / Slide Review NO; Basophils Absolute Auto 0 /uL (0-100); Basophils Percent Auto 0.4 % (0-2); Eosinophils Absolute Auto 0 /uL (0-450); Eosinophils Percent Auto 0.4 % (2-4); Hemoglobin 17.1 g/dL (12.0-16.0); Lymphocytes Absolute Auto 800 /uL (1100-4500); Lymphocytes Percent Auto 8.1 % (25-40); Mean Corpuscular HGB Conc 33.5 % (30-36); Mean Corpuscular Hemoglobin 31.5 PG (26-34); Monocytes Absolute Auto 600 /uL (0-900); Monocytes Percent Auto 6.2 % (3-14); Neutrophils Absolute Auto 8500 /uL (1500-7000); Neutrophils Percent Auto 84.9 % (50-75); Platelet Count 278 X10^3/uL (150-400); Red Blood Cell Count 5.42 X10^6/uL (4.0-5.2); Red Cell Distribution Width 14.5 % (11.6-14.8); White Blood Cell Count 10.1 X10^3/uL (4.5-11.0)
[2024-07-23 12:04] LABS: Alanine Aminotransferase 27 IU/L (<35); Albumin 4.7 g/dL (3.5-5.0); Albumin Globulin Ratio 1.1 (1.0-2.8); Alkaline Phosphatase 80 U/L (38-126); Aspartate Aminotransferase 42 IU/L (14-36); BUN Creatinine Ratio 21.4 (6-22); Bilirubin Total 1.3 mg/dL (0.2-1.3); Blood Urea Nitrogen 9 mg/dL (7-17); Calcium 9.1 mg/dL (8.4-10.2); Carbon Dioxide 30 mmol/L (22-32); Chloride 97 mmol/L (98-107); Estimated Glomerular Filt Rate > 60 mL/min (>60); Globulin 4.2 g/dL (1.7-4.1); Glucose 99 mg/dL (70-99); HEMOLYSIS 36 (0-50); Lactate (Lactic Acid) 1.6 mmol/L (0.7-2.1); Lipase 231 U/L (23-300); Sodium 143 mmol/L (137-145); Total Protein 8.9 g/dL (6.3-8.2)
[2024-07-23 12:05] LABS: Potassium 2.7 mmol/L (3.4-5.1)
[2024-07-23] MEDS: diphenhydrAMINE 50 MG/ML VIAL 25 MG IV (12:58)
[2024-07-23] MEDS: FAMOTIDINE 20 MG/2 ML VIAL IV (12:58)
[2024-07-23] MEDS: VANCOMYCIN 1,000 MG in SODIUM CHLORIDE 0.9% 250 ML 250 MG IV (13:26)
--- NOTE | 2024-07-23 13:30 | PC.NURSE ---
Patient began having redness in her face noticed by dad. Her 02 sat was within normal limits and her lungs were free from wheezing and she was not in resp distress. MD notified. The patient was given IV meds for allergies. temp was 98.5.
--- NOTE | 2024-07-23 14:02 | PC.NURSE ---
Patient has muscular dystrophy that effects her swallowing. She also currently has a sever cough related to pneumonia. It is unclear if her coughing is related to dysphagia, pneumonia or both. Consult is recommended to assess.
--- NOTE | 2024-07-23 14:35 | PC.NURSE ---
Patient's father reported that the pt face was red again. Patient's lungs clear. 02 at baseline and not in resp distress. Temp 99.5. Provider aware. Vanco stopped. Iv flushed and removed.
--- NOTE | 2024-07-23 14:50 | PC.NURSE ---
The patient is not having any trouble breathing. She is alert and reports feeling better. Provider updated. Will continue to monitor.
--- NOTE | 2024-07-23 14:51 | PC.NURSE ---
Patient passed trial off of supplemental 02. She is 95% on RA and her breathing is even and unlabored. She is currently on RA.
--- NOTE | 2024-07-23 15:56 | P.HP_ITS ---
History of Present Illness History of Present Illness Date Patient Seen: 07/23/24 Chief complaint: not feeling better since last visit 07/17 Narrative: Chief complaint: Aspiration pneumonia not improving symptomatically History of present illness: 34-year-old female with history of demyelinating disease, esophageal dysmotility, aspiration pneumonia, recent admission to [facility] 07/13/24- 07/15/24 with aspiration pneumonitis and rhinovirus positive respiratory illness, initially treated with IV Zosyn antibiotic, discharged on liquid oral antibiotic Augmentin, still taking in liquid. She had a coughing episode this evening, transient increased of breathing noted by family this evening. Here for further evaluation. She does not have a PEG tube in place at this point, though patient/family has considered it last year. Patient unable to participate in a review of systems Physical exam: Contracted female nonverbal HEENT unremarkable Lungs with diminished breath sounds Heart rate and rhythm regular Abdomen nontender Aspiration pneumonia: -resume Zosyn -Trial of different oral antibiotics that patient will be willing to take DVT prophylaxis with enoxaparin Full Code [facility] Medical History Muscular dystrophy Surgical History S/P bronchoscopy Social History household members: family Smoking Status: Never smoker alcohol intake: never Meds Home Medications and Allergies Home Medications Medication Instructions Recorded Confirmed Type No Known Home Medications 07/23/24 07/23/24 History Allergies Allergy/AdvReac Type Severity Reaction Status Date / Time No Known Drug Allergies Allergy Verified 07/12/24 21:50 Exam Vital Signs (past 8 hours): - 07/23/24 11:03 07/23/24 11:04 07/23/24 11:04 Temperature Pulse Rate 111 H 109 H Respiratory Rate Blood Pressure 90/59 L Pulse Oximetry 92 91 Oxygen Delivery Method Oxygen Flow Rate 07/23/24 11:05 07/23/24 11:15 07/23/24 11:15 Temperature 98.9 F Pulse Rate 120 H 107 H Respiratory Rate 20 Blood Pressure 97/65 95/60 Pulse Oximetry 90 L 91 Oxygen Delivery Method Room Air Oxygen Flow Rate 07/23/24 11:30 07/23/24 11:30 07/23/24 12:18 Temperature Pulse Rate 104 H 97 H Respiratory Rate Blood Pressure 92/55 L Pulse Oximetry 89 L 96 Oxygen Delivery Method Oxygen Flow Rate 07/23/24 12:20 07/23/24 12:20 07/23/24 12:30 Temperature Pulse Rate 94 H 86 Respiratory Rate 16 Blood Pressure 93/56 L Pulse Oximetry 97 99 Oxygen Delivery Method Oxygen Flow Rate 07/23/24 12:30 07/23/24 12:32 07/23/24 12:32 Temperature Pulse Rate 90 Respiratory Rate 23 Blood Pressure 87/53 L 93/52 L Pulse Oximetry 98 Oxygen Delivery Method Oxygen Flow Rate 07/23/24 12:45 07/23/24 12:45 07/23/24 12:46 Temperature Pulse Rate 84 Respiratory Rate 21 Blood Pressure 101/57 L Pulse Oximetry 100 100 Oxygen Delivery Method Nasal Cannula Oxygen Flow Rate 2 07/23/24 13:00 07/23/24 13:00 07/23/24 13:15 Temperature Pulse Rate 85 82 Respiratory Rate 24 20 Blood Pressure 108/58 L Pulse Oximetry 99 98 Oxygen Delivery Method Oxygen Flow Rate 07/23/24 13:15 07/23/24 13:30 07/23/24 13:30 Temperature Pulse Rate 81 Respiratory Rate 23 Blood Pressure 105/57 L 100/59 L Pulse Oximetry 99 Oxygen Delivery Method Oxygen Flow Rate 07/23/24 13:45 07/23/24 13:45 07/23/24 14:00 Temperature Pulse Rate 86 Respiratory Rate 22 Blood Pressure 96/56 L 108/63 Pulse Oximetry 95 Oxygen Delivery Method Oxygen Flow Rate 07/23/24 14:00 07/23/24 14:15 07/23/24 14:15 Temperature Pulse Rate 92 H 92 H Respiratory Rate 22 21 Blood Pressure 106/65 Pulse Oximetry 95 96 Oxygen Delivery Method Oxygen Flow Rate 07/23/24 14:30 07/23/24 14:30 07/23/24 14:45 Temperature Pulse Rate 88 92 H Respiratory Rate 20 16 Blood Pressure 107/63 Pulse Oximetry 95 95 Oxygen Delivery Method Oxygen Flow Rate 07/23/24 14:45 07/23/24 15:52 Temperature Pulse Rate Respiratory Rate Blood Pressure 110/63 Pulse Oximetry Oxygen Delivery Method Nasal Cannula Oxygen Flow Rate Oxygen Delivery Method Nasal Cannula Oxygen Flow Rate 2 Objective Labs 07/23/24 11:31 07/23/24 11:31 Labs: Laboratory Results - last 24 hr 05/15/25 11:31 WBC 10.1 RBC 5.42 H Hgb 17.1 H Hct 51.0 H MCV 94.0 MCH 31.5 MCHC 33.5 RDW 14.5 Plt Count 278 Neut % (Auto) 84.9 H Lymph % (Auto) 8.1 L [place] % (Auto) 6.2 Eos % (Auto) 0.4 L Baso % (Auto) 0.4 Neut # (Auto) 8500 H Lymph # (Auto) 800 L [place] # (Auto) 600 Eos # (Auto) 0 Baso # (Auto) 0 PT 13.5 H INR 1.2 APTT 35 Sodium 143 Potassium 2.7 L* D Chloride 97 L Carbon Dioxide 30 BUN 9 Creatinine 0.42 L Estimated GFR > 60 BUN/Creatinine Ratio 21.4 Glucose 99 Lactate 1.6 Calcium 9.1 Total Bilirubin 1.3 AST 42 H ALT 27 Alkaline Phosphatase 80 Total Protein 8.9 H Albumin 4.7 Globulin 4.2 H Albumin/Globulin Ratio 1.1 Lipase 231 Procalcitonin 0.080 Assessment & Plan Time-Based Coding :: 35 minutes spent with patient and on the chart (including review of chart, obtaining history, exam, reviewing outside data, placing orders, documenting exam and treatment plan, and counseling patient) .
[2024-07-23] MEDS: CEFEPIME 2 GM in SODIUM CHLORIDE 0.9% 100 ML IV (16:35)
[2024-07-23] MEDS: SODIUM CHLORIDE 0.9% 1,000 ML 100 ML IV (16:35)
[2024-07-23] MEDS: POTASSIUM CHLORIDE 20 MEQ/15 ML UDC 40 MEQ PO (16:35)
--- NOTE | 2024-07-23 18:36 | PC.NURSE ---
Day shift: Patient alert to self. Can answer some questions, difficult to ascertain if she doesn't understand or simply doesn't want to engage. Patient's dad at bedside, provides majority of information and helped this RN with getting patient to take PO potassium. Patient spit out approximately 1/2 the liquid potassium. Notified MD Fisher about the potassium, he said half is ok and prioritize PO fluids and IV antibiotics in her 1 PIV. Plan for PICC line placement tomorrow. Patient compliant with most turns and care, needs gentle encouragement. Speech eval ordered, patient on full liquids for now - ok'ed by MD Fisher after reviewing patient's chest xray. Patient ate 0 percent of dinner. Respiratory panel still pending at this time. Will continue to monitor.
[2024-07-23 19:01] LABS: Adenovirus Not Detected (Not Detect); B. parapertussis Not Detected (Not Detecte); Bordetella pertussis Not Detected (Not Detect); Chlamydophila pneumoniae Not Detected (Not Detect); Coronavirus 229E Not Detected (Not Detect); Coronavirus HKU1 Not Detected (Not Detect); Coronavirus NL 63 Not Detected (Not Detect); Coronavirus OC43 Not Detected (Not Detect); Human Metapneumovirus Not Detected (Not Detect); Human Rhinovirus/Enterovirus Not Detected (Not Detect); Influenza A Not Detected (Not Detect); Influenza B Not Detected (Not Detect); Mycoplasma pneumoniae Not Detected (Not Detect); Parainfluenza Virus 1 Not Detected (Not Detect); Parainfluenza Virus 2 Not Detected (Not Detect); Parainfluenza Virus 3 Not Detected (Not Detect); Parainfluenza Virus 4 Not Detected (Not Detect); Respiratory Syncytial Virus Not Detected (Not Detect); SARS- CoV-2 Not Detected (Not Detecte)
[2024-07-23 19:32] LABS: Appearance Urine UA CLEAR; Bilirubin Urine UA NEGATIVE (NEGATIVE); Color Urine UA YELLOW; Glucose Urine UA NEGATIVE (Negative); Ketones Urine UA 2+ (NEGATIVE); Leukocyte Esterase Urine UA NEGATIVE (NEGATIVE); Nitrite Urine UA NEGATIVE (Negative); Occult Blood Urine UA 2+ (Negative); Protein Urine UA NEGATIVE (Negative); Specific Gravity Urine UA 1.015 (1.000-1.035); Urobilinogen Urine UA 0.2 E.U./dL (0.2)
[2024-07-23 19:39] LABS: Bacteria Urine Occasional (0-1); RBC Urine 5-10/HPF (0-5/HPF); Squamous Epithelial Cell Urine 1-5 /HPF (0-5/HPF); Urine Volume 10mL (spun); WBC Urine 1-5/HPF (0-5/HPF)
[2024-07-23 19:40] LABS: Culture Indicated Urine Cult Not Indicated
[2024-07-23] MEDS: POTASSIUM CHLORIDE IN WATER 10 MEQ/100 ML PIGGYBACK 100 MEQ IV (21:00)
[2024-07-24] MEDS: POTASSIUM CHLORIDE IN WATER 10 MEQ/100 ML PIGGYBACK 100 MEQ IV ×5 (00:47→15:53)
[2024-07-24] MEDS: CEFEPIME 2 GM in SODIUM CHLORIDE 0.9% 100 ML IV (03:58)
--- NOTE | 2024-07-24 05:00 | PC.NURSE ---
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 RN assessed patient and patient was very tired and was sleeping very soundly. RN contacted night time Dr Caban (hospitalist) to get IV K+ ordered. gave a verbal order for K+ IVF. RN placed orders and proceeded to administer them along with NS @100 rate. Patient was able to continue resting while RN continued to administer K+ thru the night. Patient did not wake up with any complaints of pain; N/V. Patient still has NC on @ 2 liters tolerating well 95-96%.
[2024-07-24 07:00] VITALS: BP 103/61; PULSE 81; RESP 18; TEMP 36; O2SAT 99
[2024-07-24 07:18] LABS: Add Manual Diff / Slide Review NO; Basophils Absolute Auto 0 /uL (0-100); Basophils Percent Auto 0.5 % (0-2); Eosinophils Absolute Auto 100 /uL (0-450); Eosinophils Percent Auto 2.5 % (2-4); Hemoglobin 12.7 g/dL (12.0-16.0); Lymphocytes Absolute Auto 900 /uL (1100-4500); Lymphocytes Percent Auto 18.6 % (25-40); Mean Corpuscular HGB Conc 33.5 % (30-36); Mean Corpuscular Hemoglobin 31.3 PG (26-34); Mean Corpuscular Volume 93.6 fL (80-100); Monocytes Absolute Auto 400 /uL (0-900); Neutrophils Absolute Auto 3600 /uL (1500-7000); Neutrophils Percent Auto 70.4 % (50-75); Platelet Count 214 X10^3/uL (150-400); Red Blood Cell Count 4.06 X10^6/uL (4.0-5.2); Red Cell Distribution Width 14.9 % (11.6-14.8); White Blood Cell Count 5.1 X10^3/uL (4.5-11.0)
[2024-07-24 07:29] LABS: BUN Creatinine Ratio 16.7 (6-22); Blood Urea Nitrogen 4 mg/dL (7-17); Calcium 7.6 mg/dL (8.4-10.2); Carbon Dioxide 29 mmol/L (22-32); Chloride 105 mmol/L (98-107); Estimated Glomerular Filt Rate > 60 mL/min (>60); Glucose 75 mg/dL (70-99); HEMOLYSIS 16 (0-50); Potassium 3.4 mmol/L (3.4-5.1); Sodium 143 mmol/L (137-145)
--- NOTE | 2024-07-24 08:46 | DI.RAD.S_ITS ---
PROCEDURE: XR CHEST FOR PICC 1V INDICATIONS: Post placement of PICC COMPARISON: [facility], CR, XR CHEST 1V, 07/23/2024, 11:24. [facility], CR, XR CHEST 2V, 07/17/2024, 0:31. FINDINGS: PICC was placed by the intravenous therapy team from the left side. Fluoroscopic spot film demonstrates the tip of PICC projecting to the area of cavoatrial junction. IMPRESSION: Tip of PICC projects to the area of cavoatrial junction. Dictated by: Ubaldo Dooley M.D. on 07/24/2024 at 10:23 Approved by: Ubaldo Dooley M.D. on 07/24/2024 at 10:23
[2024-07-24 09:10] VITALS: O2SAT 98
[2024-07-24] MEDS: ENOXAPARIN 40 MG/0.4 ML SYRINGE SUBCUT (09:53)
[2024-07-24] MEDS: PIPERACILLIN IV ×2 (11:45→12:50)
[2024-07-24] MEDS: SODIUM CHLORIDE 0.9% IV ×2 (11:45→12:50)
[2024-07-24] MEDS: TAZO IV ×2 (11:45→12:50)
[2024-07-24] MEDS: POTASSIUM CHLORIDE 20 MEQ/15 ML UDC 40 MEQ PO (11:46)
[2024-07-24] MEDS: SODIUM CHLORIDE 0.9% 1,000 ML 100 ML IV (12:37)
--- NOTE | 2024-07-24 12:56 | SLP.IPNOTE ---
Chart reviewed and RN consulted. Pt with hx of muscular dystrophy, chronic dysphagia, and recurrent aspiration pneumonia. Per RN, pt has declined all PO intake during hospital stay, including liquids, solids, and medications. Her dad, who was at bedside, reported that pt eats a regular diet and drinks thin liquids at home. PO intake and appetite has been reduced over the past several years. She has seen speech therapy as MBSS was attempted in the past, with minimal results. Pt declined all trials today, which is common for her during hospital stays, according to her dad. Pt and parents aware and implement safe swallowing precautions to reduce risk of development of aspiration pneumonia. Plan to re-attempt clinical swallow evaluation on Saturday and discharge order if pt continues to decline assessment. RN and MD notified and expressed understanding.
--- NOTE | 2024-07-24 13:11 | DIET.CONS ---
Dietary Consultation Note Admission Date: 07/23/2024 13:40 Assessment: 34 y F presenting for lethargy and not eating. Dietitian consulted for malnutrition screening with MNA 7 (malnourished). Medical history of demyelinating disease, esophageal dysmotility, aspiration pneumonia, recent admission to [facility] 07/13/24-07/15/24 with aspiration pneumonitis and rhinovirus positive respiratory illness Pts father eports not eating during hospitalizations is normal for this pt for the first 2 days and then pt starts to slowly eat more food. Pt then returns to normal PO intakes when d/c home. In previous hospitalizations when pt was eating has tolerated the following foods the best: ice cream, apple juice, rice and veggies. Pt's dad also has brought in food beforehand that pt is comfortable with from home. Pt hospitalized 10d ago and has had 4.6% unintentional weight loss since that admission. [employer] tried MBSS and swallow assessment, however, pt has refused. Pt having difficulty taking PO medicines and often refuses per care team. Ht: 157.48 cm Wt: 53 kg (-4.6% in 10 days, severe) BMI: 20.7 UBW: 123 lb (55.9kg) Last BM: 07/21/24 (07/23/24 15:41) MNA: 7 Stuart Score: 14 Diet: 07/23/24 Dinner Full Liquid Diet Diet Modifications: Nutrition Percent Meal Consumed 0% 07/23/24 18:00 Nutrition Diagnosis: Severe Acute Protein Calorie Malnutrition r/t unresolved aspiration pnumonitis aeb pt readmitted 9d after previous d/c, 4.6% unintentional weight loss in 10d (severe), pt with esophogeal dysmotility and demyelinating disease requiring full care at home, pt refuses eating in hospital setting. Interventions: Recc consideration of placement of PEG tube for medication and hydration management and to support nutrition status r/t aspiration hx, esophageal dysmotility and protein calorie malnutrition. Monitoring/Evaluations: RD to f/u Saturday with TF reccs if family decides to move forward with PEG placement. Electronically Signed by: Annmarie Starkey 07/24/24 13:11 Clinical Dietitian [address] [address]
--- NOTE | 2024-07-24 13:47 | CM.DANOTE ---
Initial DCP Assessment Note Pt is a 34 yo female, resident of [place], wc dependent and mostly non-verbal due to Muscular dystrophy- with progressive cognitive and muscle decline, admitted INPT for management of aspiration PNA. PCP: Jennifer Bustillos Payer: [employer] [facility] Reviewed chart, pt discussed in multidisciplinary rounds this morning. Met w/patient and her Dad Ruben. Dad reports that patient and Mom both have muscular dystrophy and are wc dependent. Both patient and her mom have remained self sufficient thus far at home. Mom was diagnosed with adult onset muscular dystrophy after the of patient. Patient was diagnosed shortly after being born. Their home is equipped for patient and her Mom to maintain their independence. Patient's verbal communication is minimal. According to Dad, Mom has been hesitant to hire in home care and would like to continue to provide assist as needed to patient on her own, with assist from Dad when he is not working. Dad is the public transit bus driver for the family with their wc accessible van. Discussed home health services. Dad Ruben will consider this, discuss with his and be in touch with this SW team. CM team will plan to follow clinical course closely. Plan: Discharge home w/family by family transport is anticipated. Patient and family may benefit from the support of HH, r/o closer to [place]. LOREN Ceja Discharge Planning/Care Management Discharge Assessment Start: 07/23/24 13:51 Freq: Status: Active Protocol: Document 07/24/24 13:43 SHELIA (Rec: 07/24/24 13:47 SHELIA [id number]) Discharge Planning Assessment Assigned Ride Attendant LOREN Nam DPOA/Assigned Designee Name Bettie Goss/ Ruben (mother and father) Contact Information [phone] (home) father cell Advance Directives? No Advance Directives on File No History Provided By Parents,Medical Record Has Patient been admitted in last 30 Yes days? Comment ER 07/16 INPT 07/12-07/15 Prior Living Arrangements House Household Members family Type of transporation used prior to Relies on Others admit Independent with ADL's No: Mostly indp, mom helps as needed Is patient alert and oriented? No: Progressive cognitive decline, not A+Ox4 Needs Assistance With Meal Prep,Managing Medications ,Home Chores / Shopping DME Already Rented / Owned Bath Bench,Wheelchair,Elevated Toilet Seat Barriers to Discharge No Comment Home w/family. May benefit from HH if parents agreeable. Discharge Plan Home Transportation Arrangement Parents to provide transport. Additional Comment R/o need for HH closer to [place]. No HH agency preference.
--- NOTE | 2024-07-24 14:05 | CM.DPNOTE ---
DCP Cont According to Meg Miranda, patient has a [employer] who performs an annual eval/assessment. Meg does not know much more than this, what program this is and name of case preparer and liner. Patient does not appear to have [employer]. This could be a case preparer and liner through [employer] (?) JW
--- NOTE | 2024-07-24 17:52 | PM.PN.1 ---
Subjective Subjective Date Patient Seen: 07/24/24 Interval history: Chief complaint: Aspiration pneumonia not improving symptomatically History of present illness: 34-year-old female with history of demyelinating disease, esophageal dysmotility, aspiration pneumonia, recent admission to [facility] 07/13/24-07/15/24 with aspiration pneumonitis and rhinovirus positive respiratory illness, initially treated with IV Zosyn antibiotic, discharged on liquid oral antibiotic Augmentin, still taking in liquid. She had a coughing episode this evening, transient increased of breathing noted by family this evening. Here for further evaluation. She does not have a PEG tube in place at this point, though patient/family has considered it last year. Hospital course: 07/24: Still not eating productive cough Patient unable to participate in a review of systems Physical exam: Contracted female nonverbal HEENT unremarkable Lungs with diminished breath sounds Heart rate and rhythm regular Abdomen nontender Aspiration pneumonia: -continue Zosyn -Trial of different oral antibiotics that patient will be willing to take DVT prophylaxis with enoxaparin Full Code Blue Exam Vital Signs (past 8 hours): Fraction of Inspired Oxygen 24 SaO2/FiO2 Ratio 400 Oxygen Delivery Method Nasal Cannula Oxygen Flow Rate 2 Objective Labs 07/24/24 06:49 07/24/24 06:49 Labs: Laboratory Results - last 24 hr 07/23/24 07/23/24 07/24/24 15:45 18:00 06:49 WBC 5.1 RBC 4.06 Hgb 12.7 Hct 38.0 MCV 93.6 MCH 31.3 MCHC 33.5 RDW 14.9 H Plt Count 214 Neut % (Auto) 70.4 Lymph % (Auto) 18.6 L Ness % (Auto) 8.0 Eos % (Auto) 2.5 Baso % (Auto) 0.5 Neut # (Auto) 3600 Lymph # (Auto) 900 L Ness # (Auto) 400 Eos # (Auto) 100 Baso # (Auto) 0 Sodium 143 Potassium 3.4 Chloride 105 Carbon Dioxide 29 BUN 4 L Creatinine 0.24 L Estimated GFR > 60 BUN/Creatinine Ratio 16.7 Glucose 75 Calcium 7.6 L Urine Color Yellow Urine Appearance Clear Urine pH 6.0 Ur Specific [place] 1.015 Urine Protein Negative Urine Glucose (UA) Negative Urine Ketones 2+ H Urine Occult Blood 2+ H Urine Nitrate Negative Urine Bilirubin Negative Urine Urobilinogen 0.2 Ur Leukocyte Esterase Negative Urine RBC 5-10/hpf H Urine WBC 1-5/hpf Ur Squamous Epith Cells 1-5 /hpf Urine Bacteria Occasional (0-1) Ur Culture Indicated? Cult not indicated Vol Urine Centrifuged 10ml (spun) Chlamy pneumoniae PCR Not detected Adenovirus (PCR) Not detected B. pertussis DNA (PCR) Not detected B.parapertussis DNA PCR Not detected Coronavirus OC43 (PCR) Not detected Coronavirus HKU1 (PCR) Not detected Coronavirus 229E (PCR) Not detected SARS-CoV-2 (PCR) Not detected Coronavirus NL63 (PCR) Not detected Human Metapneumovir PCR Not detected Influenza Type A (PCR) Not detected Influenza Type B (PCR) Not detected M. pneumoniae (PCR) Not detected Parainfluenza 1 (PCR) Not detected Parainfluenza 2 (PCR) Not detected Parainfluenza 3 (PCR) Not detected Parainfluenza 4 (PCR) Not detected RSV (PCR) Not detected Entero/Rhino (PCR) Not detected PFSH Medical History Muscular dystrophy Surgical History S/P bronchoscopy Social History household members: family Smoking Status: Never smoker alcohol intake: never Assessment & Plan Time-Based Coding :: 35 minutes spent with patient and on the chart (including review of chart, obtaining history, exam, reviewing outside data, placing orders, documenting exam and treatment plan, and counseling patient).
[2024-07-24] MEDS: PIPERACILLIN/TAZO 3.375 GM in SODIUM CHLORIDE 0.9% 100 ML IV (18:12)
[2024-07-24 19:19] VITALS: O2SAT 98
[2024-07-24 20:00] VITALS: BP 105/58; PULSE 74; RESP 24; TEMP 36.6; O2SAT 96
[2024-07-25] MEDS: PIPERACILLIN/TAZO 3.375 GM in SODIUM CHLORIDE 0.9% 100 ML IV ×3 (01:32→19:44)
[2024-07-25 05:56] LABS: Add Manual Diff / Slide Review NO; Basophils Absolute Auto 0 /uL (0-100); Basophils Percent Auto 1.1 % (0-2); Eosinophils Absolute Auto 100 /uL (0-450); Eosinophils Percent Auto 3.8 % (2-4); Hematocrit 36.6 % (36-46); Hemoglobin 12.2 g/dL (12.0-16.0); Lymphocytes Absolute Auto 800 /uL (1100-4500); Lymphocytes Percent Auto 22.7 % (25-40); Mean Corpuscular HGB Conc 33.3 % (30-36); Mean Corpuscular Hemoglobin 31.3 PG (26-34); Mean Corpuscular Volume 93.9 fL (80-100); Monocytes Absolute Auto 300 /uL (0-900); Monocytes Percent Auto 8.9 % (3-14); Neutrophils Absolute Auto 2200 /uL (1500-7000); Neutrophils Percent Auto 63.5 % (50-75); Platelet Count 224 X10^3/uL (150-400); Red Cell Distribution Width 14.6 % (11.6-14.8); White Blood Cell Count 3.5 X10^3/uL (4.5-11.0)
[2024-07-25 06:13] LABS: BUN Creatinine Ratio 6.7 (6-22); Blood Urea Nitrogen 2 mg/dL (7-17); Calcium 7.8 mg/dL (8.4-10.2); Carbon Dioxide 29 mmol/L (22-32); Chloride 101 mmol/L (98-107); Estimated Glomerular Filt Rate > 60 mL/min (>60); Glucose 66 mg/dL (70-99); HEMOLYSIS < 15 (0-50); Potassium 3.1 mmol/L (3.4-5.1); Sodium 140 mmol/L (137-145)
[2024-07-25] MEDS: SODIUM CHLORIDE 0.9% 1,000 ML 100 ML IV (06:41)
[2024-07-25 07:00] VITALS: BP 93/51; PULSE 88; RESP 20; TEMP 36.3; O2SAT 95
[2024-07-25 08:29] VITALS: O2SAT 95
[2024-07-25] MEDS: ENOXAPARIN 40 MG/0.4 ML SYRINGE SUBCUT (08:41)
--- NOTE | 2024-07-25 12:43 | ST.IPCSEOM ---
Visit Care Team Role Provider Type Doctor MD [place] Primary Care Provider Non-Staff Specialty: Medical Address: Phone: Fax: Email: Jennifer Bustillos MD Family Provider Non-Staff Specialty: Family Practice Address: [address] [place] [address], [id number] Email: Kumar Johnston MD Emergency Provider Physician Referring Provider Specialty: Emergency Medicine Address: [address] [place] [address], [id number] Email: [email or web address] Vaughn Fisher MD Admit Provider Physician Attending Provider Specialty: Hospitalist Address: [address] [place] [address], [id number] Fax: Email: [email or web address] Current Diagnoses Pneumonitis due to inhalation of food and vomit (07/23/24) Past Medical History (Last Reviewed 07/17/24 @ 01:55 by Raeann Key RN) Muscular dystrophy (Medical) Speech-Language Pathology Swallow Evaluation OVERCOIL STEPPER Clinical Swallow Evaluation Start: 07/25/24 11:47 Freq: Status: Active Protocol: Document 07/25/24 11:47 MG (Rec: 07/25/24 11:49 MG Desktop) Clinical Swallow Evaluation Session Time Visit Start Time 10:40 Visit Stop Time 11:30 Total Visit Minutes 50 Visit Information Visit Number 1 Setting Assessment Location Acute Care Visit Type Note Type Initial evaluation Next Note Type Next Note Type Re-evaluation Patient Information Identification Type Name,Wristband History Per H&P: 34-year-old female with history of demyelinating disease, esophageal dysmotility, aspiration pneumonia, recent admission to [facility] 07/13/24-07/15/24 with aspiration pneumonitis and rhinovirus positive respiratory illness, initially treated with IV Zosyn antibiotic, discharged on liquid oral antibiotic Augmentin, still taking in liquid. She had a coughing episode this evening, transient increased of breathing noted by family this evening. Here for further evaluation. She does not have a PEG tube in place at this point, though patient/family has considered it last year. Subjective Observations Pt was resting in bed with father present in room upon OVERCOIL STEPPER entry. Nasal cannula on pt was present. Dry, weak cough was noted prior to PO intake. Pt initially was noncompliant with this OVERCOIL STEPPER but did eventually participate in a few PO trials when given encouragement from this OVERCOIL STEPPER and the pt's father. Pt has a history of noncompliance in tasks. Pt took 2 sips of water from a water bottle brought from home and took 2 bites of vanilla ice cream. Per the pt' s father, the pt's diet has become very restrictive and she has become a very picky eater with specific preferences for a small range of items she feels comfortable with and wants to consume (e. g., [employer] apple juice box vs [employer] apple juice box). Of note, she had not consumed anything from her breakfast tray at that point and had been refusing PO intake of all varieties (medication, hydration, etc). Currently she is on a full liquid diet; pt' s father reports she has a regular diet at home which they modify (such as cutting items into small pieces, small bites/sips of items, etc). Pt 's father reports that the pt' s also has a diagnosis of demyelinating disease which was discovered later in life, whereas the pt was born and airlifted to [facility] where she was given the diagnosis at . Pt has a softer voice when she does communicate and answered some questions this OVERCOIL STEPPER asked as well as asked questions of this OVERCOIL STEPPER. Pt does not currently with with a speech therapist at this time. Reported by Patient/Caregiver Pain/Discomfort No Other Symptoms History of aspiration or pneumonia,Weight loss,Other Comment Pt was recently admitted this month for aspiration pneumonia . Pt has had unintentional weight loss as well per investment consultant report. PEG tube has been discussed in the past with the pt and her family. Current Diet Liquidised (IDDSI 3) Baseline Feeding Method Needs some assistance The IDDSI Framework Protocol: IDDSI.1 Objective Assessment Mental Status Alert,Responsive,Cooperative, Lethargic,Uncooperative Oral Integrity Oral residue Dentition Decay,Inadequate dentition for mastication Lip Function Moderate impairment Observation of Lips at Rest Symmetrical Pucker Reduced range of motion, Reduced strength Lip Retraction Reduced range of motion Alternating Pucker/Lip Retraction Reduced range of motion, Incoordination Tongue Function Moderate impairment Observations of Tongue at Rest Within normal limits Tongue Protrusion Reduced range of motion, Reduced strength Tongue Retraction Reduced range of motion, Reduced strength Tongue Lateralization Reduced range of motion, Reduced strength, Incoordination Jaw Function Mild impairment Observation of Jaw at Rest Within normal limits Jaw Opening Within normal limits Jaw Closing Within normal limits Jaw Lateralization Reduced range of motion, Reduced strength Jaw Protrusion Reduced range of motion, Reduced strength Jaw Retraction Reduced range of motion, Reduced strength Hard/Soft Palate Function Within normal limits Observations of Hard/Soft Palate Within normal limits Respiratory Sufficiency Mild impairment Comment Pt participated in OME with this OVERCOIL STEPPER. At times, when asked to complete certain maneuvers , she would say, I can't do that. Overall observations noted reduced strength and coordination of the articulators at this time. Pt has mouth open at rest and teeth protrude forward. Pt can close mouth when asked. Oral cavity is noted to be small in size. Food and Liquid Trials Position During Assessment Slightly reclined Liquids Trialed Thin (IDDSI 0) Solid Trials Purred (IDDSI 4) Administration Type Controlled cup sip,Needs some assistance Oral Impairment Moderately impaired Oral Phase Comments Pt participated in 4 PO trials . No anterior spillage noted or oral residue seen at this time. Mastication could not be assessed as the pt did not consume any textures which required that at this time. Further evaluation is warranted to get a better picture of the pt's oral abilities. Pharyngeal Impairment Moderately impaired Pharyngeal Phase Comments Laryngeal palpation noted weakened hyolaryngeal movement and very little anterior hyoid excursion at this time. Pt participated in 4 PO trials . No immediate overt s/sx noted at this time. No wet/ gurgly voice or cough was noted during PO trials. Dry, weak cough was noted >5 minutes after PO intake and was observed prior to PO trials. Difficult to say if it was caused by aspiration or d /t pneumonia symptoms. Further evaluation is warranted for the pt to increase PO trials and better assess pharyngeal functioning. Fatigue/Endurance Mild fatigue Comment Pt appeared fatigued prior to OVERCOIL STEPPER entry. Per the pt's father , the pt's sleep schedule is all messed up and she has a hard time being at the hospital and away from her mother. The IDDSI Framework Protocol: IDDSI.1 Findings Swallowing Function Oropharyngeal phase dysphagia Severity of Swallow Impairment Moderately impaired Contributing Factors to Swallow Reduced oral strength/ Impairment coordination/sensation, Mastication inefficiency, Impaired oral-pharyngeal transport,Reduced laryngeal excursion,Impaired airway protection Prognosis Fair Based on History of aspiration/ aspiration pneumonia, Comorbidities,Duration of symptoms/severity,Other ( comment) Comment Pt appears very weak and was recently seen at [facility] for aspiration pneumonia. Pt also has a history of not wanting to comply at times with therapy or interventions. A MBSS would be beneficial to get an accurate picture and workup of the pt's swallowing function at this time, but pt may not be agreeable to this. Pt has a great home support system who will encourage her to participate with ST at this time. Impact on Safety and Functioning Risk for aspiration,Risk for inadequate nutrition/hydration Recommendations Instrumental Assessment Yes Swallowing Treatment Yes Other Recommendations Continue current diet recommendations (full liquid) in hopes the pt will consume something. PEG vs NG tube should be considered given pt' s weight loss, lack of compliance with oral intake, and overall motivation. Safety Precautions/Swallowing 1 to 1 close supervision,Feed Recommendations only when alert,Remain upright (90 degrees) during all oral intake,Small bites and sips when eating,Slow rate; swallow between bites,Multiple swallows Medication Recommendations As Tolerated Discharge Recommendations Home,Outpatient therapy Referrals Recommended Referrals Dietary Education Patient/Caregiver Education Described results of evaluation,Patient expressed understanding of evaluation, Patient expressed agreement with goals & treatment plans, Family/caregivers expressed understanding of evaluation, Family/caregivers expressed agreement with goals & treatment plans,Patient expressed understanding of safety precautions,Patient expressed understanding of feeding recommendations,Family /caregivers expressed understanding of safety precautions,Family/caregivers expressed understanding of feeding recommendations, Patient requires further education/training,Family/ caregivers require further education/training Goals Short-term Goals Pt will participate in MBSS to further evaluate the pt's swallowing function at this time and determine appropriate POC. Pt and pt's family will participate in education re: swallowing mechanism, safe swallowing strategies, interventions, etc. Long-term Goals Pt will tolerate least restrictive diet without demonstrating overt s/sx of aspiration.
[2024-07-25] MEDS: POTASSIUM CHLORIDE IN WATER 10 MEQ/100 ML PIGGYBACK 100 MEQ IV ×4 (15:12→19:44)
--- NOTE | 2024-07-25 16:20 | P.PN_ITS ---
Subjective Subjective Date Patient Seen: 07/25/24 Interval history: Chief complaint: Aspiration pneumonia not improving symptomatically History of present illness: 34-year-old female with history of demyelinating disease, esophageal dysmotility, aspiration pneumonia, recent admission to [facility] 07/13/24- 07/15/24 with aspiration pneumonitis and rhinovirus positive respiratory illness, initially treated with IV Zosyn antibiotic, discharged on liquid oral antibiotic Augmentin, still taking in liquid. She had a coughing episode this evening, transient increased of breathing noted by family this evening. Here for further evaluation. She does not have a PEG tube in place at this point, though patient/family has considered it last year. Hospital course: 07/24: Still not eating productive cough 07/25: Much more animated feeling much better now much more cooperative Review of systems: No fever or night sweats No nausea vomiting No shortness a breath No abdominal pain Physical exam: Conversant but cognitively limited HEENT unremarkable Lungs with diminished breath sounds Heart rate and rhythm regular Abdomen nontender Aspiration pneumonia: -continue Zosyn -Trial of different oral antibiotics that patient will be willing to take DVT prophylaxis with enoxaparin Exam Vital Signs (past 8 hours): - 07/25/24 08:29 Pulse Oximetry 95 Oxygen Delivery Method Nasal Cannula Oxygen Flow Rate 2 Fraction of Inspired Oxygen 28 Fraction of Inspired Oxygen 28 SaO2/FiO2 Ratio 339 Oxygen Delivery Method Nasal Cannula Oxygen Flow Rate 2 Objective Labs 07/25/24 05:45 07/25/24 05:45 Labs: Laboratory Results - last 24 hr 07/25/24 05:45 WBC 3.5 L RBC 3.90 L Hgb 12.2 Hct 36.6 MCV 93.9 MCH 31.3 MCHC 33.3 RDW 14.6 Plt Count 224 Neut % (Auto) 63.5 Lymph % (Auto) 22.7 L [place] % (Auto) 8.9 Eos % (Auto) 3.8 Baso % (Auto) 1.1 Neut # (Auto) 2200 Lymph # (Auto) 800 L [place] # (Auto) 300 Eos # (Auto) 100 Baso # (Auto) 0 Sodium 140 Potassium 3.1 L Chloride 101 Carbon Dioxide 29 BUN 2 L Creatinine 0.30 L Estimated GFR > 60 BUN/Creatinine Ratio 6.7 Glucose 66 L Calcium 7.8 L [facility] Medical History Muscular dystrophy Surgical History S/P bronchoscopy Social History household members: family Smoking Status: Never smoker alcohol intake: never Assessment & Plan Time-Based Coding :: [TOTAL MINUTES] spent with patient and on the chart (including review of chart, obtaining history, exam, reviewing outside data, placing orders, documenting exam and treatment plan, and counseling patient) on [DATE].
--- NOTE | 2024-07-25 16:56 | PC.NURSE ---
Pt A/O, Is able to make needs kn own. IOVF infusing as per orders. Sat in her W/C for an hr w/o incidence. Potasium riders being infusied as p-er orders. Call light w/in reach, bed alarm om
[2024-07-25 19:00] VITALS: BP 98/55; PULSE 80; RESP 16; TEMP 36.1; O2SAT 94
[2024-07-25 19:42] VITALS: O2SAT 95
[2024-07-25] MEDS: SODIUM CHLORIDE 0.9% FLUSH 10 ML IV (19:50)
[2024-07-26] MEDS: PIPERACILLIN/TAZO 3.375 GM in SODIUM CHLORIDE 0.9% 100 ML IV ×3 (01:39→17:40)
[2024-07-26] MEDS: SODIUM CHLORIDE 0.9% 1,000 ML 100 ML IV ×2 (01:42→17:39)
[2024-07-26 06:24] LABS: Add Manual Diff / Slide Review NO; Basophils Absolute Auto 0 /uL (0-100); Basophils Percent Auto 1.4 % (0-2); Eosinophils Absolute Auto 100 /uL (0-450); Eosinophils Percent Auto 3.9 % (2-4); Hemoglobin 12.6 g/dL (12.0-16.0); Lymphocytes Absolute Auto 900 /uL (1100-4500); Lymphocytes Percent Auto 29.5 % (25-40); Mean Corpuscular HGB Conc 33.3 % (30-36); Mean Corpuscular Hemoglobin 31.3 PG (26-34); Mean Corpuscular Volume 94.2 fL (80-100); Monocytes Absolute Auto 200 /uL (0-900); Monocytes Percent Auto 6.9 % (3-14); Neutrophils Absolute Auto 1700 /uL (1500-7000); Neutrophils Percent Auto 58.3 % (50-75); Platelet Count 238 X10^3/uL (150-400); Red Blood Cell Count 4.03 X10^6/uL (4.0-5.2); Red Cell Distribution Width 14.6 % (11.6-14.8); White Blood Cell Count 2.9 X10^3/uL (4.5-11.0)
[2024-07-26 06:33] LABS: Calcium 8.1 mg/dL (8.4-10.2); Carbon Dioxide 25 mmol/L (22-32); Chloride 101 mmol/L (98-107); Estimated Glomerular Filt Rate > 60 mL/min (>60); Glucose 55 mg/dL (70-99); HEMOLYSIS < 15 (0-50); Sodium 138 mmol/L (137-145)
[2024-07-26 06:35] LABS: BUN Creatinine Ratio 6.9 (6-22); Blood Urea Nitrogen 2 mg/dL (7-17)
[2024-07-26 08:20] VITALS: BP 89/58; PULSE 76; RESP 22; TEMP 36.6; O2SAT 98
--- NOTE | 2024-07-26 11:48 | PC.NURSE ---
Patients father went home to see his . Patient has taken in only 100cc this morning. Father states that when she comes to the hospital she never really drinks much or eats any food. Her lung sounds are decreased in the bases, she is 96% on RA. Patient has refused her lovenox injection and her liquid antibiotic. Will talk to family and see if maybe they can encourage her to take this. Zosyn is infusing at 25cc/hr and patient is also on ivfluids. Tolerating both well, unsure of total mentation. She does converse and tell us her needs. No further needs at this time.
[2024-07-26] MEDS: ENOXAPARIN 40 MG/0.4 ML SYRINGE SUBCUT (12:07)
[2024-07-26 13:44] VITALS: BP 97/56; PULSE 81; RESP 13; TEMP 36.1; O2SAT 94
--- NOTE | 2024-07-26 17:26 | PM.PN.1 ---
Subjective Subjective Date Patient Seen: 07/26/24 Interval history: Chief complaint: Aspiration pneumonia not improving symptomatically History of present illness: 34-year-old female with history of demyelinating disease, esophageal dysmotility, aspiration pneumonia, recent admission to [facility] 07/13/24-07/15/24 with aspiration pneumonitis and rhinovirus positive respiratory illness, initially treated with IV Zosyn antibiotic, discharged on liquid oral antibiotic Augmentin, still taking in liquid. She had a coughing episode this evening, transient increased of breathing noted by family this evening. Here for further evaluation. She does not have a PEG tube in place at this point, though patient/family has considered it last year. Hospital course: 07/24: Still not eating productive cough 07/25: Much more animated feeling much better now much more cooperative Review of systems: No fever or night sweats No nausea vomiting No shortness a breath No abdominal pain Physical exam: Conversant but cognitively limited HEENT unremarkable Lungs with diminished breath sounds Heart rate and rhythm regular Abdomen nontender Aspiration pneumonia: -continue Zosyn -Trial of different oral antibiotics that patient will be willing to take DVT prophylaxis with enoxaparin Time-Based Coding :: 35 minutes spent with patient and on the chart (including review of chart, obtaining history, exam, reviewing outside data, placing orders, documenting exam and treatment plan, and counseling patient) Exam Vital Signs (past 8 hours): - 07/26/24 13:44 Temperature 96.9 F L Pulse Rate 81 Respiratory Rate 13 Blood Pressure 97/56 L Pulse Oximetry 94 Fraction of Inspired Oxygen 28 SaO2/FiO2 Ratio 339 Oxygen Delivery Method Nasal Cannula Oxygen Flow Rate 2 Objective Labs 07/26/24 06:14 07/26/24 06:14 Labs: Laboratory Results - last 24 hr 07/26/24 06:14 WBC 2.9 L RBC 4.03 Hgb 12.6 Hct 38.0 MCV 94.2 MCH 31.3 MCHC 33.3 RDW 14.6 Plt Count 238 Neut % (Auto) 58.3 Lymph % (Auto) 29.5 [place] % (Auto) 6.9 Eos % (Auto) 3.9 Baso % (Auto) 1.4 Neut # (Auto) 1700 Lymph # (Auto) 900 L [place] # (Auto) 200 Eos # (Auto) 100 Baso # (Auto) 0 Sodium 138 Potassium 4.0 Chloride 101 Carbon Dioxide 25 BUN 2 L Creatinine 0.29 L Estimated GFR > 60 BUN/Creatinine Ratio 6.9 Glucose 55 L Calcium 8.1 L PFSH Medical History Muscular dystrophy Surgical History S/P bronchoscopy Social History household members: family Smoking Status: Never smoker alcohol intake: never Assessment & Plan Time-Based Coding :: [TOTAL MINUTES] spent with patient and on the chart (including review of chart, obtaining history, exam, reviewing outside data, placing orders, documenting exam and treatment plan, and counseling patient) on [DATE].
[2024-07-26 23:05] VITALS: BP 93/62; PULSE 76; RESP 20; TEMP 36.1; O2SAT 99
[2024-07-26] MEDS: SODIUM CHLORIDE 0.9% FLUSH 10 ML IV (23:16)
[2024-07-27] MEDS: PIPERACILLIN/TAZO 3.375 GM in SODIUM CHLORIDE 0.9% 100 ML IV ×2 (01:44→09:39)
[2024-07-27] MEDS: SODIUM CHLORIDE 0.9% 1,000 ML 100 ML IV (03:20)
[2024-07-27 05:50] LABS: Add Manual Diff / Slide Review NO; Basophils Absolute Auto 0 /uL (0-100); Basophils Percent Auto 1.8 % (0-2); Eosinophils Absolute Auto 100 /uL (0-450); Eosinophils Percent Auto 3.4 % (2-4); Hematocrit 37.5 % (36-46); Hemoglobin 12.5 g/dL (12.0-16.0); Lymphocytes Absolute Auto 800 /uL (1100-4500); Lymphocytes Percent Auto 35.9 % (25-40); Mean Corpuscular HGB Conc 33.3 % (30-36); Mean Corpuscular Hemoglobin 31.1 PG (26-34); Mean Corpuscular Volume 93.5 fL (80-100); Monocytes Absolute Auto 200 /uL (0-900); Monocytes Percent Auto 9.5 % (3-14); Neutrophils Absolute Auto 1100 /uL (1500-7000); Neutrophils Percent Auto 49.4 % (50-75); Platelet Count 231 X10^3/uL (150-400); Red Blood Cell Count 4.01 X10^6/uL (4.0-5.2); Red Cell Distribution Width 14.7 % (11.6-14.8); White Blood Cell Count 2.3 X10^3/uL (4.5-11.0)
[2024-07-27 06:09] LABS: Carbon Dioxide 20 mmol/L (22-32); Chloride 106 mmol/L (98-107); Estimated Glomerular Filt Rate > 60 mL/min (>60); Glucose 57 mg/dL (70-99); HEMOLYSIS < 15 (0-50); Potassium 3.7 mmol/L (3.4-5.1); Sodium 139 mmol/L (137-145)
[2024-07-27 06:10] LABS: BUN Creatinine Ratio 6.9 (6-22); Blood Urea Nitrogen 2 mg/dL (7-17)
[2024-07-27 07:00] VITALS: BP 90/59; PULSE 80; RESP 15; TEMP 36.1; O2SAT 98
--- NOTE | 2024-07-27 08:50 | PM.PN.1 ---
Subjective Subjective Date Patient Seen: 07/27/24 Interval history: Chief complaint: Aspiration pneumonia not improving symptomatically History of present illness: 34-year-old female with history of demyelinating disease, esophageal dysmotility, aspiration pneumonia, recent admission to [facility] 07/13/24-07/15/24 with aspiration pneumonitis and rhinovirus positive respiratory illness, initially treated with IV Zosyn antibiotic, discharged on liquid oral antibiotic Augmentin, still taking in liquid. She had a coughing episode this evening, transient increased of breathing noted by family this evening. Here for further evaluation. She does not have a PEG tube in place at this point, though patient/family has considered it last year. Hospital course: 07/24: Still not eating productive cough 07/25: Much more animated feeling much better now much more cooperative 07/26: Uncooperative poor p.o. intake hypoglycemic this morning 07/27: Continues to be uncooperative once again hypoglycemia Review of systems: No fever or night sweats No nausea vomiting No shortness a breath No abdominal pain Physical exam: Conversant but cognitively limited HEENT unremarkable Lungs with diminished breath sounds Heart rate and rhythm regular Abdomen nontender Aspiration pneumonia: -discontinue Zosyn -Trial of different oral antibiotics that patient will be willing to take DVT prophylaxis with enoxaparin Time-Based Coding :: 35 minutes spent with patient and on the chart (including review of chart, obtaining history, exam, reviewing outside data, placing orders, documenting exam and treatment plan, and counseling patient) Exam Vital Signs (past 8 hours): - 07/27/24 07:00 Temperature 96.9 F L Pulse Rate 80 Respiratory Rate 15 Blood Pressure 90/59 L Pulse Oximetry 98 Oxygen Flow Rate 0 Fraction of Inspired Oxygen 28 SaO2/FiO2 Ratio 339 Oxygen Delivery Method Room Air Oxygen Flow Rate 0 Objective Labs 07/27/24 05:45 07/27/24 05:45 Labs: Laboratory Results - last 24 hr 07/27/24 05:45 WBC 2.3 L RBC 4.01 Hgb 12.5 Hct 37.5 MCV 93.5 MCH 31.1 MCHC 33.3 RDW 14.7 Plt Count 231 Neut % (Auto) 49.4 L Lymph % (Auto) 35.9 [place] % (Auto) 9.5 Eos % (Auto) 3.4 Baso % (Auto) 1.8 Neut # (Auto) 1100 L Lymph # (Auto) 800 L [place] # (Auto) 200 Eos # (Auto) 100 Baso # (Auto) 0 Sodium 139 Potassium 3.7 Chloride 106 Carbon Dioxide 20 L BUN 2 L Creatinine 0.29 L Estimated GFR > 60 BUN/Creatinine Ratio 6.9 Glucose 57 L Calcium 8.0 L PFSH Medical History Muscular dystrophy Surgical History S/P bronchoscopy Social History household members: family Smoking Status: Never smoker alcohol intake: never Assessment & Plan Time-Based Coding :: [TOTAL MINUTES] spent with patient and on the chart (including review of chart, obtaining history, exam, reviewing outside data, placing orders, documenting exam and treatment plan, and counseling patient) on [DATE].
[2024-07-27] MEDS: SODIUM CHLORIDE 0.9% FLUSH 10 ML IV (09:39)
[2024-07-27] MEDS: POTASSIUM CHLORIDE 20 MEQ in DEXTROSE 5%-0.9% NS 1,000 ML 100 MEQ IV (09:40)
--- NOTE | 2024-07-27 12:42 | CM.DPNOTE ---
DCP Note SEAMARK ADVANCED OPERATOR MAINTAINER reviewed EMR per provider in mornging rounds, pt continues to refuse PO intake. per RN note/provider, pt parents report she does not eat when hospitalized. pt nutritionally may benefit to dc home and see if she starts to eat at home? dc timeline unknown. SEAMARK ADVANCED OPERATOR MAINTAINER attempted to meet with pt/family in room. pt napping, no other family in room. allowed to rest. CM team will plan to follow clinical course closely. Plan: Discharge home w/family by family transport is anticipated. Patient and family may benefit from the support of HH, r/o closer to [place] ([facility] out of [facility]....send refs to [facility] vs [facility]. referral/F2f/order needed).will continue to follow closely for DCP coordination LOREN Dickerson
--- NOTE | 2024-07-27 16:25 | P.DS_ITS ---
History of Present Illness History of Present Illness Date Patient Seen: 07/27/24 Chief complaint: not feeling better since last visit 07/17 Narrative: Chief complaint: Aspiration pneumonia not improving symptomatically History of present illness: 34-year-old female with history of demyelinating disease, esophageal dysmotility, aspiration pneumonia, recent admission to [facility] 07/13/24- 07/15/24 with aspiration pneumonitis and rhinovirus positive respiratory illness, initially treated with IV Zosyn antibiotic, discharged on liquid oral antibiotic Augmentin, still taking in liquid. She had a coughing episode this evening, transient increased of breathing noted by family this evening. Here for further evaluation. She does not have a PEG tube in place at this point, though patient/family has considered it last year. Patient unable to participate in a review of systems Physical exam: No acute distress watching a video asking to go home HEENT unremarkable Lungs occasional rhonchus Heart rate and rhythm regular Abdomen nontender [address] [address] Progress Note Patient: Danica Goss MR#: [id number] : 1990 Acct:[id number] Age/Sex: 34 / F Admit Date: 07/23/24 Provider: Vaughn Fisher MD Subjective Subjective Date Patient Seen: 07/27/24 Interval history: Chief complaint: Aspiration pneumonia not improving symptomatically History of present illness: 34-year-old female with history of demyelinating disease, esophageal dysmotility, aspiration pneumonia, recent admission to [facility] 07/13/24- 07/15/24 with aspiration pneumonitis and rhinovirus positive respiratory illness, initially treated with IV Zosyn antibiotic, discharged on liquid oral antibiotic Augmentin, still taking in liquid. She had a coughing episode this evening, transient increased of breathing noted by family this evening. Here for further evaluation. She does not have a PEG tube in place at this point, though patient/family has considered it last year. Hospital course: 07/24: Still not eating productive cough 07/25: Much more animated feeling much better now much more cooperative 07/26: Uncooperative poor p.o. intake hypoglycemic this morning 07/27: Continues to be uncooperative once again hypoglycemia asking to go home does not want to eat Review of systems: No fever or night sweats No nausea vomiting No shortness a breath No abdominal pain Physical exam: Conversant but cognitively limited HEENT unremarkable Lungs with diminished breath sounds Heart rate and rhythm regular Abdomen nontender Assessment and plan: Aspiration pneumonia: No further antibiotics at treatment indicated at this time Congenital muscular dystrophy: Patient is in addition to having manifestation of muscular dystrophy also has a demyelinating disorder with findings on brain MRI. Discussed the case at length with the parent with focus on patient's long-term course and prognosis. 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 Options were discussed which have been presented before which included tracheostomy and PEG tube 1 year ago when the patient was intubated with COVID I do not believe the tracheostomy and PEG tube placement are services provided at [facility]. The patient also may be uncomfortable with the hospital surroundings and unfamiliar staff inhibiting her from eating and drinking when she would do such in the home setting. This is particularly important for patient's nutrition status. The options discussed apparent elected to take the patient home and to try in the home setting to see if the patient will maintain nutrition and hydration at home. If not then be organic deterioration of her central nervous system from her congenital condition may have progressed to the point where she can not maintain hydration and nutrition naturally and would have to be done by artificial means.-(PEG tube placement) Options for placing a PEG tube at [facility] may be limited favoring bringing the patient to a larger facility with more options may be more optimal for outcome Time-Based Coding :: 35 minutes spent with patient and on the chart (including review of chart, obtaining history, exam, reviewing outside data, placing orders, documenting exam and treatment plan, and counseling patient) Discharge Providers Provider Date of admission: 07/23/24 13:40 Discharge Date: 07/27/24 Primary care physician: Doctor Keyona MD Consults: 07/23/24 15:47 Consult to Dietitian, Adult Routine Comment: Reason For Exam: unintentional weight loss, and decrease appettite 07/23/24 18:01 Consult to Speech Therapy Evaluate & Treat Comment: concern for aspiration pneumonia Physician Instructions: Evaluate and treat Discharge provider: Vaughn Fisher MD Exam Vital Signs (past 8 hours): Fraction of Inspired Oxygen 28 SaO2/FiO2 Ratio 339 Oxygen Delivery Method Room Air Oxygen Flow Rate 0 Objective Labs 07/27/24 05:45 07/27/24 05:45 Labs: Laboratory Results - last 24 hr 07/27/24 05:45 WBC 2.3 L RBC 4.01 Hgb 12.5 Hct 37.5 MCV 93.5 MCH 31.1 MCHC 33.3 RDW 14.7 Plt Count 231 Neut % (Auto) 49.4 L Lymph % (Auto) 35.9 [place] % (Auto) 9.5 Eos % (Auto) 3.4 Baso % (Auto) 1.8 Neut # (Auto) 1100 L Lymph # (Auto) 800 L [place] # (Auto) 200 Eos # (Auto) 100 Baso # (Auto) 0 Sodium 139 Potassium 3.7 Chloride 106 Carbon Dioxide 20 L BUN 2 L Creatinine 0.29 L Estimated GFR > 60 BUN/Creatinine Ratio 6.9 Glucose 57 L Calcium 8.0 L PFSH Medical History Muscular dystrophy Surgical History S/P bronchoscopy Social History household members: family Smoking Status: Never smoker alcohol intake: never Discharge Plan Discharge Plan Patient Disposition: Home Discharge orders & Medications Prescriptions: No Action No Known Home Medications Follow up/Referrals: Doctor Rand MD [Primary Care Provider] - Discharge Data Primary Care Provider: Doctor Keyona
--- NOTE | 2024-07-27 16:27 | SLP.IPNOTE ---
RN consulted and chart reviewed. RN reported ongoing minimal PO intake. Pt has had very little liquids today and declining medications. Baseline cough 2/2 PNA, but no observed overt s/sx of aspiration. Session attempted. Pt's father reported he has asked MD for pt to be discharged home today. Recommended continue ST services and complete MBSS as outpatient if there is a continued concern for swallowing safety and efficiency and pt is interested. Reviewed safe swallowing strategies and frequent oral care to reduce risk of developing aspiration pneumonia. Pt and pt's father expressed understanding. Will follow up as needed pending d/c plan.
== END 2024-07-27 19:05 | disposition home health service (06) | DRG 178 ==
LOC: ED 11:22 → AC 13:41
PROVIDERS: Admitting Provider Internal Medicine; Emergency Provider Emergency Medicine; Family Provider Family Medicine; Referring Provider Emergency Medicine; Visit Provider Internal Medicine
DX: J69.0 Pneumonitis due to inhalation of food and vomit (principal); G37.9 Demyelinating disease of central nervous system, unspecified; K22.89 Other specified disease of esophagus; G71.09 Other specified muscular dystrophies; R13.10 Dysphagia, unspecified
CPT/HCPCS: 36415; 36569; 36592; 71045; 71275; 80048; 80053; 81001; 83605; 83690; 84145; 85025; 85610; 85730; 87040; 87633; 92610; 93005; 96365; 96367; 96375; 99285; J0692; J1200; J1650; J2543; J3480; Q9967